=== PATIENT | male | born 1955 | race Caucasian/White ===

== ENCOUNTER 2017-04-12 16:04 | Inpatient (IN) | payer OTHER ==
[~2017-04-12] VITALS: Ht 177.8 cm; Wt 128.4 kg
[~2017-04-12 16:04] MED LIST: ASP81CT PO; CEFD300C3 PO; D ME PO; FURO40TA4 PO; IPRA3AMP IH; IPRA4AER IH; NAPR220T66 PO; PANT40TA3 PO; PRAV80TA2 PO; PRD10T PO
--- OUTSIDE RECORDS SUMMARY | 2017-04-12 16:10 | XMS REPORT | Continuity of Care Document ---
Author Author [facility] Organization [facility] Address Unknown Phone Unavailable Allergies Active Description Code Type Severity Reaction Onset Reported/Identified Relationship to Patient Clinical Status Yes No Known Drug Allergies [id number] Drug Allergy Unknown N/A 11/30/2012 Medications There is no data. Problems Date Dx Coded Attending Type Code Diagnosis Diagnosed By 01/25/2016 JULIAN ACUÑA DO, Ot 486 PNEUMONIA, ORGANISM NOS 01/25/2016 JULIAN ACUÑA DO Ot 486 PNEUMONIA, ORGANISM NOS 01/25/2016 JULIAN ACUÑA DO Ot 793.19 OTHER NONSPECIFIC ABNORMAL FINDING OF ARDEN 01/25/2016 JULIAN ACUÑA DO Ot 486 PNEUMONIA, ORGANISM NOS 01/25/2016 JULIAN ACUÑA DO Ot 793.19 OTHER NONSPECIFIC ABNORMAL FINDING OF ARDEN 01/30/2016 JULIAN ACUÑA DO Ot E66.9 OBESITY, UNSPECIFIED 01/30/2016 JULIAN ACUÑA DO Ot F17.210 NICOTINE DEPENDENCE, CIGARETTES, UNCOMPL 01/30/2016 JULIAN ACUÑA DO Ot I10 ESSENTIAL (PRIMARY) HYPERTENSION 01/30/2016 JULIAN ACUÑA DO Ot J44.1 CHRONIC OBSTRUCTIVE PULMONARY DISEASE W 01/30/2016 JULIAN ACUÑA DO Ot K21.9 GASTRO-ESOPHAGEAL REFLUX DISEASE WITHOUT 01/30/2016 JULIAN ACUÑA DO Ot R09.02 HYPOXEMIA 01/30/2016 JULIAN ACUÑA DO Ot Z68.41 BODY MASS INDEX (BMI) 40.0-44.9, ADULT 03/11/2016 AMINAH CHAMORRO APRN Ot J44.9 CHRONIC OBSTRUCTIVE PULMONARY DISEASE, U 03/11/2016 AMINAH CHAMORRO APRN Ot R05 COUGH 03/25/2016 AMINAH CHAMORRO APRN Ot J44.9 CHRONIC OBSTRUCTIVE PULMONARY DISEASE, U 03/25/2016 AMINAH CHAMORRO APRN Ot R05 COUGH Procedures There is no data. Results Test Result Range Complete blood count (CBC) with automated white blood cell (WBC) differential - 01/25/16 01:28 Blood leukocytes automated count (number/volume) 8.8 10*3/uL 4.3-11.0 Blood erythrocytes automated count (number/volume) 5.13 10*6/uL 4.35-5.85 Venous blood hemoglobin measurement (mass/volume) 16.2 g/dL 13.3-17.7 Blood hematocrit (volume fraction) 51 % 40-54 Automated erythrocyte mean corpuscular volume 98 [foz_us] 80-99 Automated erythrocyte mean corpuscular hemoglobin (mass per erythrocyte) 32 pg 25-34 Automated erythrocyte mean corpuscular hemoglobin concentration measurement ( mass/volume) 32 g/dL 32-36 Automated erythrocyte distribution width ratio 15.5 % 10.0-14.5 Automated blood platelet count (count/volume) 225 10*3/uL 130-400 Automated blood platelet mean volume measurement 10.2 [foz_us] 7.4-10.4 Automated blood neutrophils/100 leukocytes 67 % 42-75 Automated blood lymphocytes/100 leukocytes 23 % 12-44 Blood monocytes/100 leukocytes 7 % 0-12 Automated blood eosinophils/100 leukocytes 2 % 0-10 Automated blood basophils/100 leukocytes 1 % 0-10 Blood neutrophils automated count (number/volume) 5.9 10*3 1.8-7.8 Blood lymphocytes automated count (number/volume) 2.0 10*3 1.0-4.0 Blood monocytes automated count (number/volume) 0.6 10*3 0.0-1.0 Automated eosinophil count 0.2 10*3/uL 0.0-0.3 Automated blood basophil count (count/volume) 0.1 10*3/uL 0.0-0.1 Fibrin D-dimer FEU measurement in platelet poor plasma (mass/volume) - 01:28 Fibrin D-dimer FEU measurement in platelet poor plasma (mass/volume) < ug/mL 0.00-0.49 Comprehensive metabolic panel - 01/25/16 01:28 Serum or plasma sodium measurement (moles/volume) 138 mmol/L 135-145 Serum or plasma potassium measurement (moles/volume) 3.8 mmol/L 3.6-5.0 Serum or plasma chloride measurement (moles/volume) 95 mmol/L 98-107 Carbon dioxide 30 mmol/L 21-32 Serum or plasma anion gap determination (moles/volume) 13 mmol/L 5-14 Serum or plasma urea nitrogen measurement (mass/volume) 12 mg/dL 7-18 Serum or plasma creatinine measurement (mass/volume) 0.80 mg/dL 0.60-1.30 Serum or plasma urea nitrogen/creatinine mass ratio 15 NRG Serum or plasma creatinine measurement with calculation of estimated glomerular filtration rate > NRG Serum or plasma glucose measurement (mass/volume) 211 mg/dL 70-105 Serum or plasma calcium measurement (mass/volume) 8.9 mg/dL 8.5-10.1 Serum or plasma total bilirubin measurement (mass/volume) 0.5 mg/dL 0.1-1.0 Serum or plasma alkaline phosphatase measurement (enzymatic activity/volume) 86 U/L 40-136 Serum or plasma aspartate aminotransferase measurement (enzymatic activity/ volume) 14 U/L 5-34 Serum or plasma alanine aminotransferase measurement (enzymatic activity/volume ) 16 U/L 0-55 Serum or plasma protein measurement (mass/volume) 6.4 g/dL 6.4-8.2 Serum or plasma albumin measurement (mass/volume) 3.9 g/dL 3.2-4.5 Magnesium - 01/25/16 01:28 Magnesium 2.0 mg/dL 1.8-2.4 Serum or plasma troponin i.cardiac measurement (mass/volume) - 01/25/16 01:28 Serum or plasma troponin i.cardiac measurement (mass/volume) < ng/ mL <0.30 Serum or plasma lithium measurement (moles/volume) - 01/25/16 01:28 BNP level 38.6 pg/mL <100.0 Arterial blood gas measurement - 01/25/16 03:02 Blood pCO2 79 mm[Hg] 35-45 Blood pO2 62 mm[Hg] 79-93 Arterial blood bicarbonate measurement (moles/volume) 41 mmol/L 23-27 Arterial blood base excess by calculation 10.1 mmol/L - 2.5-2.5 Arterial blood oxygen saturation measurement 94 % 94-100 * Inhaled oxygen flow rate 3L NRG Arterial blood pH measurement with patient temperature correction 7.32 7.37-7.43 Arterial blood carbon dioxide, total measurement (moles/volume) 43.5 mmol/L 21.0-31.0 Body site L RAD NRG Assessment of wrist artery patency prior to arterial puncture YES- POS NRG Setting of ventilation mode NO NRG Measurement of body temperature 96.0 NRG Capillary blood glucose measurement by glucometer (mass/volume) - 01/25/16 06: 55 Capillary blood glucose measurement by glucometer (mass/volume) 161 mg/dL 70-110 Automated blood complete blood count (hemogram) panel - 01/26/16 08:29 Blood leukocytes automated count (number/volume) 12.8 10*3/uL 4.3-11.0 Blood erythrocytes automated count (number/volume) 5.14 10*6/uL 4.35-5.85 Venous blood hemoglobin measurement (mass/volume) 16.1 g/dL 13.3-17.7 Blood hematocrit (volume fraction) 52 % 40-54 Automated erythrocyte mean corpuscular volume 102 [foz_us] 80-99 Automated erythrocyte mean corpuscular hemoglobin (mass per erythrocyte) 31 pg 25-34 Automated erythrocyte mean corpuscular hemoglobin concentration measurement ( mass/volume) 31 g/dL 32-36 Automated erythrocyte distribution width ratio 16.1 % 10.0-14.5 Automated blood platelet count (count/volume) 267 10*3/uL 130-400 Automated blood platelet mean volume measurement 10.4 [foz_us] 7.4-10.4 Whole blood basic metabolic panel - 01/26/16 08:29 Serum or plasma sodium measurement (moles/volume) 140 mmol/L 135-145 Serum or plasma potassium measurement (moles/volume) 5.0 mmol/L 3.6-5.0 Serum or plasma chloride measurement (moles/volume) 98 mmol/L 98-107 Carbon dioxide 29 mmol/L 21-32 Serum or plasma anion gap determination (moles/volume) 13 mmol/L 5-14 Serum or plasma urea nitrogen measurement (mass/volume) 15 mg/dL 7-18 Serum or plasma creatinine measurement (mass/volume) 0.74 mg/dL 0.60-1.30 Serum or plasma urea nitrogen/creatinine mass ratio 20 NRG Serum or plasma creatinine measurement with calculation of estimated glomerular filtration rate > NRG Serum or plasma glucose measurement (mass/volume) 175 mg/dL 70-105 Serum or plasma calcium measurement (mass/volume) 8.6 mg/dL 8.5-10.1 Serum or plasma lithium measurement (moles/volume) - 01/26/16 08:29 BNP level 74.2 pg/mL <100.0 Automated blood complete blood count (hemogram) panel - 01/27/16 04:40 Blood leukocytes automated count (number/volume) 13.3 10*3/uL 4.3-11.0 Blood erythrocytes automated count (number/volume) 4.96 10*6/uL 4.35-5.85 Venous blood hemoglobin measurement (mass/volume) 15.5 g/dL 13.3-17.7 Blood hematocrit (volume fraction) 50 % 40-54 Automated erythrocyte mean corpuscular volume 101 [foz_us] 80-99 Automated erythrocyte mean corpuscular hemoglobin (mass per erythrocyte) 31 pg 25-34 Automated erythrocyte mean corpuscular hemoglobin concentration measurement ( mass/volume) 31 g/dL 32-36 Automated erythrocyte distribution width ratio 16.0 % 10.0-14.5 Automated blood platelet count (count/volume) 252 10*3/uL 130-400 Automated blood platelet mean volume measurement 10.7 [foz_us] 7.4-10.4 Whole blood basic metabolic panel - 01/27/16 04:40 Serum or plasma sodium measurement (moles/volume) 139 mmol/L 135-145 Serum or plasma potassium measurement (moles/volume) 4.6 mmol/L 3.6-5.0 Serum or plasma chloride measurement (moles/volume) 95 mmol/L 98-107 Carbon dioxide 31 mmol/L 21-32 Serum or plasma anion gap determination (moles/volume) 13 mmol/L 5-14 Serum or plasma urea nitrogen measurement (mass/volume) 21 mg/dL 7-18 Serum or plasma creatinine measurement (mass/volume) 0.73 mg/dL 0.60-1.30 Serum or plasma urea nitrogen/creatinine mass ratio 29 NRG Serum or plasma creatinine measurement with calculation of estimated glomerular filtration rate > NRG Serum or plasma glucose measurement (mass/volume) 151 mg/dL 70-105 Serum or plasma calcium measurement (mass/volume) 8.7 mg/dL 8.5-10.1 Complete blood count (CBC) with automated white blood cell (WBC) differential - 01/28/16 04:30 Blood leukocytes automated count (number/volume) 10.7 10*3/uL 4.3-11.0 Blood erythrocytes automated count (number/volume) 4.90 10*6/uL 4.35-5.85 Venous blood hemoglobin measurement (mass/volume) 15.2 g/dL 13.3-17.7 Blood hematocrit (volume fraction) 50 % 40-54 Automated erythrocyte mean corpuscular volume 101 [foz_us] 80-99 Automated erythrocyte mean corpuscular hemoglobin (mass per erythrocyte) 31 pg 25-34 Automated erythrocyte mean corpuscular hemoglobin concentration measurement ( mass/volume) 31 g/dL 32-36 Automated erythrocyte distribution width ratio 15.5 % 10.0-14.5 Automated blood platelet count (count/volume) 243 10*3/uL 130-400 Automated blood platelet mean volume measurement 10.6 [foz_us] 7.4-10.4 Automated blood neutrophils/100 leukocytes 90 % 42-75 Automated blood lymphocytes/100 leukocytes 6 % 12-44 Blood monocytes/100 leukocytes 4 % 0-12 Automated blood eosinophils/100 leukocytes 0 % 0-10 Automated blood basophils/100 leukocytes 0 % 0-10 Blood neutrophils automated count (number/volume) 9.6 10*3 1.8-7.8 Blood lymphocytes automated count (number/volume) 0.7 10*3 1.0-4.0 Blood monocytes automated count (number/volume) 0.4 10*3 0.0-1.0 Automated eosinophil count 0.0 10*3/uL 0.0-0.3 Automated blood basophil count (count/volume) 0.0 10*3/uL 0.0-0.1 Blood manual differential performed detection - 01/28/16 04:30 Blood monocytes/100 leukocytes 2 % NRG Manual blood segmented neutrophils/100 leukocytes 94 % NRG Blood band neutrophils/100 leukocytes 0 % NRG Manual blood lymphocytes/100 leukocytes 2 % NRG Manual eosinophils/100 leukocytes in nose 0 % NRG Manual blood basophils/100 leukocytes 0 % NRG Blood lymphocytes variant/100 leukocytes 2 % NRG Blood polychromasia detection by light microscopy SLIGHT NRG Blood anisocytosis detection by light microscopy SLIGHT NRG Blood macrocytes detection by light microscopy SLIGHT NRG Whole blood basic metabolic panel - 01/28/16 04:30 Serum or plasma sodium measurement (moles/volume) 142 mmol/L 135-145 Serum or plasma potassium measurement (moles/volume) 4.6 mmol/L 3.6-5.0 Serum or plasma chloride measurement (moles/volume) 95 mmol/L 98-107 Carbon dioxide 33 mmol/L 21-32 Serum or plasma anion gap determination (moles/volume) 14 mmol/L 5-14 Serum or plasma urea nitrogen measurement (mass/volume) 25 mg/dL 7-18 Serum or plasma creatinine measurement (mass/volume) 0.71 mg/dL 0.60-1.30 Serum or plasma urea nitrogen/creatinine mass ratio 35 NRG Serum or plasma creatinine measurement with calculation of estimated glomerular filtration rate > NRG Serum or plasma glucose measurement (mass/volume) 135 mg/dL 70-105 Serum or plasma calcium measurement (mass/volume) 8.4 mg/dL 8.5-10.1 Complete blood count (CBC) with automated white blood cell (WBC) differential - 01/29/16 06:07 Blood leukocytes automated count (number/volume) 7.9 10*3/uL 4.3-11.0 Blood erythrocytes automated count (number/volume) 4.96 10*6/uL 4.35-5.85 Venous blood hemoglobin measurement (mass/volume) 15.5 g/dL 13.3-17.7 Blood hematocrit (volume fraction) 49 % 40-54 Automated erythrocyte mean corpuscular volume 99 [foz_us] 80-99 Automated erythrocyte mean corpuscular hemoglobin (mass per erythrocyte) 31 pg 25-34 Automated erythrocyte mean corpuscular hemoglobin concentration measurement ( mass/volume) 32 g/dL 32-36 Automated erythrocyte distribution width ratio 15.2 % 10.0-14.5 Automated blood platelet count (count/volume) 224 10*3/uL 130-400 Automated blood platelet mean volume measurement 10.3 [foz_us] 7.4-10.4 Automated blood neutrophils/100 leukocytes 90 % 42-75 Automated blood lymphocytes/100 leukocytes 7 % 12-44 Blood monocytes/100 leukocytes 4 % 0-12 Automated blood eosinophils/100 leukocytes 0 % 0-10 Automated blood basophils/100 leukocytes 0 % 0-10 Blood neutrophils automated count (number/volume) 7.1 10*3 1.8-7.8 Blood lymphocytes automated count (number/volume) 0.5 10*3 1.0-4.0 Blood monocytes automated count (number/volume) 0.3 10*3 0.0-1.0 Automated eosinophil count 0.0 10*3/uL 0.0-0.3 Automated blood basophil count (count/volume) 0.0 10*3/uL 0.0-0.1 Whole blood basic metabolic panel - 01/29/16 06:07 Serum or plasma sodium measurement (moles/volume) 142 mmol/L 135-145 Serum or plasma potassium measurement (moles/volume) 4.6 mmol/L 3.6-5.0 Serum or plasma chloride measurement (moles/volume) 96 mmol/L 98-107 Carbon dioxide 35 mmol/L 21-32 Serum or plasma anion gap determination (moles/volume) 11 mmol/L 5-14 Serum or plasma urea nitrogen measurement (mass/volume) 24 mg/dL 7-18 Serum or plasma creatinine measurement (mass/volume) 0.71 mg/dL 0.60-1.30 Serum or plasma urea nitrogen/creatinine mass ratio 34 NRG Serum or plasma creatinine measurement with calculation of estimated glomerular filtration rate > NRG Serum or plasma glucose measurement (mass/volume) 139 mg/dL 70-105 Serum or plasma calcium measurement (mass/volume) 8.3 mg/dL 8.5-10.1 Arterial blood gas measurement - 01/29/16 08:18 Blood pCO2 74 mm[Hg] 35-45 Blood pO2 67 mm[Hg] 79-93 Arterial blood bicarbonate measurement (moles/volume) 42 mmol/L 23-27 Arterial blood base excess by calculation 12.1 mmol/L - 2.5-2.5 Arterial blood oxygen saturation measurement 94 % 94-100 * Inhaled oxygen flow rate [place] NRG Arterial blood pH measurement with patient temperature correction 7.37 7.37-7.43 Arterial blood carbon dioxide, total measurement (moles/volume) 43.9 mmol/L 21.0-31.0 Body site LRAD NRG Assessment of wrist artery patency prior to arterial puncture YES- POS NRG Setting of ventilation mode NO NRG Measurement of body temperature 97.5 NRG Complete blood count (CBC) with automated white blood cell (WBC) differential - 01/30/16 04:30 Blood leukocytes automated count (number/volume) 10.6 10*3/uL 4.3-11.0 Blood erythrocytes automated count (number/volume) 5.35 10*6/uL 4.35-5.85 Venous blood hemoglobin measurement (mass/volume) 16.6 g/dL 13.3-17.7 Blood hematocrit (volume fraction) 52 % 40-54 Automated erythrocyte mean corpuscular volume 98 [foz_us] 80-99 Automated erythrocyte mean corpuscular hemoglobin (mass per erythrocyte) 31 pg 25-34 Automated erythrocyte mean corpuscular hemoglobin concentration measurement ( mass/volume) 32 g/dL 32-36 Automated erythrocyte distribution width ratio 15.0 % 10.0-14.5 Automated blood platelet count (count/volume) 199 10*3/uL 130-400 Automated blood platelet mean volume measurement 10.1 [foz_us] 7.4-10.4 Automated blood neutrophils/100 leukocytes 69 % 42-75 Automated blood lymphocytes/100 leukocytes 19 % 12-44 Blood monocytes/100 leukocytes 11 % 0-12 Automated blood eosinophils/100 leukocytes 0 % 0-10 Automated blood basophils/100 leukocytes 0 % 0-10 Blood neutrophils automated count (number/volume) 7.3 10*3 1.8-7.8 Blood lymphocytes automated count (number/volume) 2.0 10*3 1.0-4.0 Blood monocytes automated count (number/volume) 1.2 10*3 0.0-1.0 Automated eosinophil count 0.0 10*3/uL 0.0-0.3 Automated blood basophil count (count/volume) 0.0 10*3/uL 0.0-0.1 Whole blood basic metabolic panel - 01/30/16 04:30 Serum or plasma sodium measurement (moles/volume) 141 mmol/L 135-145 Serum or plasma potassium measurement (moles/volume) 4.0 mmol/L 3.6-5.0 Serum or plasma chloride measurement (moles/volume) 91 mmol/L 98-107 Carbon dioxide 36 mmol/L 21-32 Serum or plasma anion gap determination (moles/volume) 14 mmol/L 5-14 Serum or plasma urea nitrogen measurement (mass/volume) 27 mg/dL 7-18 Serum or plasma creatinine measurement (mass/volume) 0.77 mg/dL 0.60-1.30 Serum or plasma urea nitrogen/creatinine mass ratio 35 NRG Serum or plasma creatinine measurement with calculation of estimated glomerular filtration rate > NRG Serum or plasma glucose measurement (mass/volume) 93 mg/dL 70-105 Serum or plasma calcium measurement (mass/volume) 8.6 mg/dL 8.5-10.1 Encounters ACCT No. Visit Date/Time Discharge Status Pt. Type Provider Facility Loc./Unit Complaint [id number] 03/10/2016 09:20:00 03/10/2016 23:59:59 CLS Outpatient AMINAH CHAMORRO APRN [facility] RT COPD,TOBACCO DEPENDENCE IN REMISSION [id number] 01/25/2016 03:45:00 01/30/2016 13:30:00 DIS Inpatient JULIAN ACUÑA DO [facility] 4TH AECOPD LOW O2 TOBACCO ABUSE [id number] 08/06/2013 09:26:00 08/06/2013 23:59:59 CLS Outpatient JULIAN ACUÑA DO [facility] RAD PNEUMONIA [id number] 07/30/2013 15:07:00 07/30/2013 23:59:59 CLS Outpatient JULIAN ACUÑA DO [facility] RAD PNUEMONIA [id number] 07/27/2013 16:13:00 07/27/2013 23:59:59 CLS Outpatient JULIAN ACUÑA DO [facility] RAD COUGH AND CONGESTION [id number] 01/19/2013 11:27:00 01/19/2013 23:59:59 CLS Outpatient [id number] 11/30/2012 17:42:00 12/06/2012 17:25:00 DIS Inpatient [id number] 11/29/2012 08:42:00 11/29/2012 23:59:59 CLS Outpatient [id number] 04/12/2017 16:06:00 ACT Emergency TEO HARE MD [facility] ER SOB
[2017-04-12] MEDS ORDERED: methylPREDNISolone 125 MG (Solu-MEDROL) VIAL IVP ONE (16:15)
[2017-04-12] MEDS ORDERED: RT-ALBUTEROL/IPRATROPIUM 3 ML (DUONEB) VIAL INH ONE (16:15)
[2017-04-12 16:35] LABS: ABG OXYGEN SATURATION 97 % (94-100); ABG PH 7.37 (7.37-7.43); ABG PO2 73 MMHG (79-93)
[2017-04-12 16:36] LABS: ABG HCO3 46 MMOL/L (23-27); ABG PCO2 81 MMHG (35-45); ALLENS TEST YES-POS
[2017-04-12 16:37] LABS: PATIENT TEMP 98.3
[2017-04-12] MEDS ORDERED: RT-ALBUTEROL SULF 2.5 MG/3 ML PRE-MIX VIAL INH ONE (16:38)
[2017-04-12 16:42] LABS: BASOPHILS # (AUTO) 0.1 10^3/uL (0.0-0.1); BASOPHILS % (AUTO) 1 % (0-10); EOSINOPHILS # (AUTO) 0.2 10^3/uL (0.0-0.3); EOSINOPHILS % (AUTO) 2 % (0-10); LYMPHOCYTES # (AUTO) 2.2 X 10^3 (1.0-4.0); LYMPHOCYTES % (AUTO) 24 % (12-44); MEAN CORPUSCULAR HEMOGLOBIN 31 PG (25-34); MEAN CORPUSCULAR HGB CONC 31 G/DL (32-36); MEAN CORPUSCULAR VOLUME 101 FL (80-99); MEAN PLATELET VOLUME 10.3 FL (7.4-10.4); MONOCYTES # (AUTO) 0.7 X 10^3 (0.0-1.0); MONOCYTES % (AUTO) 8 % (0-12); NEUTROPHILS # (AUTO) 6.2 X 10^3 (1.8-7.8); NEUTROPHILS % (AUTO) 66 % (42-75); PLATELET COUNT 246 10^3/uL (130-400); RED BLOOD COUNT 4.85 10^6/uL (4.35-5.85); RED CELL DISTRIBUTION WIDTH 15.2 % (10.0-14.5); WHITE BLOOD COUNT 9.3 10^3/uL (4.3-11.0)
--- NOTE | 2017-04-12 16:44 | Diagnostic Imaging Report ---
INDICATION: Shortness of air. Confusion. COMPARISON: 01/28/2016. FINDINGS: Single frontal view of the chest demonstrates normal heart size and pulmonary vascularity. The lungs are well aerated and clear. No large pleural effusion or pneumothorax is seen. The visualized osseous structures show no acute abnormalities. IMPRESSION: 1. No acute cardiopulmonary process. Dictated by: Dictated on workstation # [id number]
[2017-04-12] MEDS ORDERED: RT-ALBUTEROL SULF 2.5 MG/3 ML PRE-MIX VIAL INH SCH (16:45)
[2017-04-12 17:06] LABS: INR 0.9 (0.8-1.4); PROTHROMBIN TIME PATIENT 12.4 SEC (12.2-14.7)
[2017-04-12] MEDS ORDERED: MONT10TA24 PO (17:15)
--- NOTE | 2017-04-12 17:29 | ED Respiratory ---
General Chief Complaint: Respiratory Problems Stated Complaint: SOB Nursing Triage Note: ARRIVED VIA AMB FROM DR BURK OFFICE. COMPLAINS OF INCREASED SOA WITH CONFUSION OVER THE LAST COUPLE OF WEEKS. PT ARRIVED ON OXYGEN AT 2LNC ET STATES HE DOES NOT KNOW IF IT IS WORKING OR NOT. Source: patient Exam Limitations: no limitations History of Present Illness Time seen by provider: 16:00 Initial Comments Here with report of shortness of air over the last couple of weeks but much worse over the last few days. Presented to his doctor's office today because of this and was found to have an O2 saturation in the lower 70 percent range. He actually rode his bicycle to the doctor's office. States that he is getting short of breath with activity. Admits that he is confused and is having hallucinations. He states that he's had something similar previous when his COPD is acting up. Denies fever or chills. Denies nausea, vomiting or diarrhea. Denies other concerns. Timing/Duration: week, getting worse Severity: moderate, severe Prior Episodes/Possible Cause: occasional episodes Modifying Factors: Worse With Activity, Improves With Oxygen, Improves With Rest Associated Symptoms: No chest pain/soreness, No fever/chills, lightheadedness, No nasal congestion, shortness of breath, No sinus infection, No sore throat, wheezing Allergies and Home Medications Allergies Coded Allergies: No Known Drug Allergies (Unverified , 11/30/12) Home Medications D-Methorphan/PE/Acetaminophen 237 Ml Liquid, 30 ML PO BID PRN for CONGESTION, ( Reported) Furosemide 40 Mg Tablet, 40 MG PO DAILY, (Reported) Montelukast Sodium 10 Mg Tablet, 10 MG PO HS, (Reported) LAST FILLED 03/10/17 #30 Naproxen Sodium 220 Mg Tablet, 220 MG PO DAILY PRN for PAIN, (Reported) Pantoprazole Sodium 40 Mg Tablet.dr, 40 MG PO DAILY, (Reported) Constitutional: see HPI, No chills, No fever, other (confusion) EENTM: no symptoms reported Respiratory: see HPI, dyspnea on exertion, short of breath, wheezing Cardiovascular: no symptoms reported Gastrointestinal: no symptoms reported, No nausea, No vomiting Genitourinary: no symptoms reported Musculoskeletal: no symptoms reported Skin: no symptoms reported All Other Systems Reviewed Negative Unless Noted: Yes Past Rdujkcf-Ufnckz-Wyrmuz Hx Patient Social History Alcohol Use: Occasionally Uses Alcohol Beverage of Choice: Beer Recreational Drug Use: No (PAST DRUG ABUSE) Smoking Status: Current Everyday Smoker Type Used: Cigarettes Recent Foreign Travel: No Contact w/Someone Who Travel: No Recent Infectious Disease Expo: No Recent Hopitalizations: No Seasonal Allergies Seasonal Allergies: No Surgeries History of Surgeries: Yes (KNEE ARTHROSCOPY, ANKLE SURGERY, ULCER REPAIR) Surgeries: Gallbladder Respiratory History of Respiratory Disorde: Yes Respiratory Disorders: Pneumonia, COPD Cardiovascular History of Cardiac Disorders: Yes Cardiac Disorders: Hypertension Neurological History of Neurological Disord: No Reproductive System Hx Reproductive Disorders: No Gastrointestinal History of Gastrointestinal Di: No Gastrointestinal Disorders: Gastroesophageal Reflux, Gall Bladder Disease Musculoskeletal History of Musculoskeletal Dis: No Endocrine History of Endocrine Disorders: No Cancer History of Cancer: No Psychosocial History of Psychiatric Problem: No Integumentary History of Skin or Integumenta: No (HX CELLULITIS lower right leg) Reviewed Nursing Assessment Reviewed/Agree w Nursing PMH: Yes Family Medical History Significant Family History: No Pertinent Family Hx Family Medial History: Asthma 19 MOTHER Bone cancer 19 MOTHER Cardiovascular disease 19 FATHER Diabetes mellitus grandma Myocardial infarction 19 FATHER Physical Exam Vital Signs Vital Sign - Last 12Hours 04/12/17 16:12 Temp 98.3 Pulse 78 Resp 18 B/P (MAP) 125/88 (100) Pulse Ox 69 O2 Delivery Room Air O2 Flow Rate 5.00 Capillary Refill : Less Than 3 Seconds General Appearance: WD/WN, no apparent distress HEENT: PERRL/EOMI, pharynx normal Neck: full range of motion, supple Respiratory: decreased breath sounds, accessory muscle use, wheezing, expiration Cardiovascular: regular rate, rhythm, no murmur Gastrointestinal: non tender, soft Extremities: non-tender, normal inspection Neurologic/Psychiatric: no motor/sensory deficits, alert Skin: normal color, warm/dry Focused Exam Evaluation Lactate Level Laboratory Tests 04/12/17 16:20: Lactic Acid Level 1.34 Lactic Acid Level Laboratory Tests Test 04/12/17 16:20 Lactic Acid Level 1.34 MMOL/L (0.50-2.00) Progress/Results/Core Measures Suspected Sepsis Recent Fever Within 48 Hours: No Infection Criteria Present: None New/Unexplained Altered Menta: No Sepsis Screen: No Definite Risk Sepsis Diagnosis: SIRS Temperature:98.3 Pulse: 78 Respiratory Rate: 18 Laboratory Tests 04/12/17 16:20: White Blood Count 9.3 Blood Pressure 125 /88 Mean: 100 Laboratory Tests 04/12/17 16:20: Lactic Acid Level 1.34 Laboratory Tests 04/12/17 16:20: INR Comment 0.9, Platelet Count 246 04/12/17 17:10: Creatinine 0.68, Total Bilirubin 0.4 Results/Orders Lab Results Laboratory Tests Test 04/12/17 16:20 04/12/17 16:26 04/12/17 17:10 Range/Units White Blood Count 9.3 4.3-11.0 10^3/uL Red Blood Count 4.85 4.35-5.85 10^6/uL Hemoglobin 15.0 13.3-17.7 G/DL Hematocrit 49 40-54 % Mean Corpuscular Volume 101 H 80-99 FL Mean Corpuscular Hemoglobin 31 25-34 PG Mean Corpuscular Hemoglobin Concent 31 L 32-36 G/DL Red Cell Distribution Width 15.2 H 10.0-14.5 % Platelet Count 246 130-400 10^3/uL Mean Platelet Volume 10.3 7.4-10.4 FL Neutrophils (%) (Auto) 66 42-75 % Lymphocytes (%) (Auto) 24 12-44 % Monocytes (%) (Auto) 8 0-12 % Eosinophils (%) (Auto) 2 0-10 % Basophils (%) (Auto) 1 0-10 % Neutrophils # (Auto) 6.2 1.8-7.8 X 10^3 Lymphocytes # (Auto) 2.2 1.0-4.0 X 10^3 Monocytes # (Auto) 0.7 0.0-1.0 X 10^3 Eosinophils # (Auto) 0.2 0.0-0.3 10^3/uL Basophils # (Auto) 0.1 0.0-0.1 10^3/uL Prothrombin Time 12.4 12.2-14.7 SEC INR Comment 0.9 0.8-1.4 Activated Partial Thromboplast Time 30 24-35 SEC Lactic Acid Level 1.34 0.50-2.00 MMOL/L Blood Gas Puncture Site LT RAD Blood Gas Patient Temperature 98.3 Arterial Blood pH 7.37 7.37-7.43 Arterial Blood Partial Pressure CO2 81 *H 35-45 MMHG Arterial Blood Partial Pressure O2 73 L 79-93 MMHG Arterial Blood HCO3 46 *H 23-27 MMOL/L Arterial Blood Total CO2 48.0 H 21.0-31.0 MMOL/L Arterial Blood Oxygen Saturation 97 94-100 % Arterial Blood Base Excess 19.0 H -2.5-2.5 MMOL/L Kerwin Test YES-POS Blood Gas Ventilator Setting NO Blood Gas Inspired Oxygen 5.5L Sodium Level 144 135-145 MMOL/L Potassium Level 4.2 3.6-5.0 MMOL/L Chloride Level 91 L 98-107 MMOL/L Carbon Dioxide Level 43 H 21-32 MMOL/L Anion Gap 10 5-14 MMOL/L Blood Urea Nitrogen 13 7-18 MG/DL Creatinine 0.68 0.60-1.30 MG/DL Estimat Glomerular Filtration Rate > 60 BUN/Creatinine Ratio 19 Glucose Level 104 70-105 MG/DL Calcium Level 9.0 8.5-10.1 MG/DL Total Bilirubin 0.4 0.1-1.0 MG/DL Aspartate Amino Transf (AST/SGOT) 14 5-34 U/L Alanine Aminotransferase (ALT/SGPT) 11 0-55 U/L Alkaline Phosphatase 80 40-136 U/L Total Protein 6.3 L 6.4-8.2 GM/DL Albumin 3.8 3.2-4.5 GM/DL My Orders Orders - TEO HARE MD Lactic Acid Analyzer (04/12/17 16:26) Blood Culture (04/12/17 16:26) Sputum Culture (04/12/17 16:26) Protime With Inr (04/12/17 16:26) Partial Thromboplastin Time (04/12/17 16:26) O2 (04/12/17 16:26) Saline Lock/Iv-Start (04/12/17 16:26) Vital Signs Adult Sepsis Patie Q1H (04/12/17 16:26) Remove Rings In Anticipation O (04/12/17 16:26) Arterial Blood Gas (04/12/17 16:25) Albuterol Pre-Mix Nebs (Rt) (Proventil (04/12/17 16:38) Medications Given in ED Current Medications Medications Dose Ordered Sig/Rogers Route Start Time Stop Time Status Last Admin Dose Admin Albuterol/ Ipratropium 3 ml ONCE ONCE INH 04/12/17 16:15 04/12/17 16:16 DC 04/12/17 16:30 3 ML Methylprednisolone Sodium Succinate 125 mg ONCE ONCE IVP 04/12/17 16:15 04/12/17 16:16 DC 04/12/17 16:49 125 MG Vital Signs/I&O Vital Sign - Last 12Hours 04/12/17 04/12/17 04/12/17 04/12/17 16:12 16:12 16:30 16:45 Temp 98.3 Pulse 78 Resp 18 B/P (MAP) 125/88 (100) Pulse Ox 69 97 96 O2 Delivery Room Air Nasal Cannula Nasal Cannula Nasal Cannula O2 Flow Rate 5.00 5.50 5.50 Capillary Refill : Less Than 3 Seconds Blood Pressure Mean: 100 Progress Note : Progress Note Seen and evaluated. IV, labs and Solu-Medrol 125 mg IV. Duo neb treatment initiated. Albuterol treatments initiated including one-hour treatment. Patient's O2 saturation was 69 percent on arrival. This did improve after applying 5.5 L O2 via nasal cannula. ABG was done and results noted. Patient is hypercarbic has normal pH. Confusion is likely related to the hypoxic state. I did discuss the case with Dr. Riddle at 1650. He is recommending continuation of steroids and RT treatments and we will initiate BiPAP at night and when necessary while working towards transition of vent to mask due to the hypercarbic state. 1713: I did discuss the case with Dr. Acuña and he accepts patient for admission, inpatient status. Patient agrees to plan. States he is doing better after being on continuous one-hour treatment. O2 saturations now in the mid 90s. Diagnostic Imaging Diagonstic Imaging: Xray Plain Films/CT/US/NM/MRI: chest Comments NAME: ANAT VARGAS MED REC#: [id number] PT STATUS: REG ER : 1955 PHYSICIAN: YONY CALDERA APRN ADMIT DATE: 04/12/17/ER Signed Date of Exam: 04/12/17 CHEST 1 VIEW, AP/PA ONLY INDICATION: Shortness of air. Confusion. COMPARISON: 01/28/2016. FINDINGS: Single frontal view of the chest demonstrates normal heart size and pulmonary vascularity. The lungs are well aerated and clear. No large pleural effusion or pneumothorax is seen. The visualized osseous structures show no acute abnormalities. IMPRESSION: 1. No acute cardiopulmonary process. Dictated by: Dictated on workstation # [id number] Dict: 04/12/17 1642 Trans: 04/12/171654 Interpreted by: MILI BROWN MD Electronically signed by: MILI BROWN MD 04/12/171654 Departure Communication (Admissions) Time/Spoke to Admitting Phy: 17:13 Time/Spoke to Consulting Phy: 16:50 Impression Impression: Primary Impression: Hypoxemia Additional Impression: COPD with acute exacerbation Disposition: ADMITTED INPATIENT Condition: Stable Admissions Decision to Admit Reason: Admit from ER (General) Decision to Admit/Date: Apr 12, 2017 Time/Decision to Admit Time: 16:50 Departure-Patient Inst. Referrals: JULIAN ACUÑA DO (PCP/Family) Primary Care Physician TEO HARE MD Apr 12, 2017 17:29
--- OUTSIDE RECORDS SUMMARY | 2017-04-12 17:29 | XMS REPORT | Continuity of Care Document ---
Author Author [facility] Organization [facility] Address Unknown Phone Unavailable Allergies Active Description Code Type Severity Reaction Onset Reported/Identified Relationship to Patient Clinical Status Yes No Known Drug Allergies [id number] Drug Allergy Unknown N/A 11/30/2012 Medications There [...] 03/25/2016 AMINAH CHAMORRO APRN Ot R05 COUGH 04/12/2017 AMINAH CHAMORRO APRN Ot J44.9 CHRONIC OBSTRUCTIVE PULMONARY DISEASE, U 04/12/2017 AMINAH CHAMORRO APRN Ot R05 COUGH Procedures [...] plasma calcium measurement (mass/volume) 8.6 mg/dL 8.5-10.1 Complete blood count (CBC) with automated white blood cell (WBC) differential - 04/12/17 16:20 Blood leukocytes automated count (number/volume) 9.3 10*3/uL 4.3-11.0 Blood erythrocytes automated count (number/volume) 4.85 10*6/uL 4.35-5.85 Venous blood hemoglobin measurement (mass/volume) 15.0 g/dL 13.3-17.7 Blood hematocrit (volume fraction) 49 % 40-54 Automated erythrocyte mean corpuscular volume 101 [foz_us] 80-99 Automated erythrocyte mean corpuscular hemoglobin (mass per erythrocyte) 31 pg 25-34 Automated erythrocyte mean corpuscular hemoglobin concentration measurement ( mass/volume) 31 g/dL 32-36 Automated erythrocyte distribution width ratio 15.2 % 10.0-14.5 Automated blood platelet count (count/volume) 246 10*3/uL 130-400 Automated blood platelet mean volume measurement 10.3 [foz_us] 7.4-10.4 Automated blood neutrophils/100 leukocytes 66 % 42-75 Automated blood lymphocytes/100 leukocytes 24 % 12-44 Blood monocytes/100 leukocytes 8 % 0-12 Automated blood eosinophils/100 leukocytes 2 % 0-10 Automated blood basophils/100 leukocytes 1 % 0-10 Blood neutrophils automated count (number/volume) 6.2 10*3 1.8-7.8 Blood lymphocytes automated count (number/volume) 2.2 10*3 1.0-4.0 Blood monocytes automated count (number/volume) 0.7 10*3 0.0-1.0 Automated eosinophil count 0.2 10*3/uL 0.0-0.3 Automated blood basophil count (count/volume) 0.1 10*3/uL 0.0-0.1 Blood lactic acid measurement (moles/volume) - 04/12/17 16:20 Blood lactic acid measurement (moles/volume) 1.34 mmol/L 0.50-2.00 PT panel in platelet poor plasma by coagulation assay - 04/12/17 16:20 Prothrombin time (PT) in platelet poor plasma by coagulation assay 12.4 s 12.2-14.7 INR in platelet poor plasma or blood by coagulation assay 0.9 0.8-1.4 Activated partial thromboplastin time (aPTT) in platelet poor plasma bycoagulation assay - 04/12/17 16:20 Activated partial thromboplastin time (aPTT) in platelet poor plasma bycoagulation assay 30 s 24-35 Arterial blood gas measurement - 04/12/17 16:26 Blood pCO2 81 mm[Hg] 35-45 Blood pO2 73 mm[Hg] 79-93 Arterial blood bicarbonate measurement (moles/volume) 46 mmol/L 23-27 Arterial blood base excess by calculation 19.0 mmol/L - 2.5-2.5 Arterial blood oxygen saturation measurement 97 % 94-100 * Inhaled oxygen flow rate 5.5L NRG Arterial blood pH measurement with patient temperature correction 7.37 7.37-7.43 Arterial blood carbon dioxide, total measurement (moles/volume) 48.0 mmol/L 21.0-31.0 Body site LT RAD NRG Assessment of wrist artery patency prior to arterial puncture YES- POS NRG Setting of ventilation mode NO NRG Measurement of body temperature 98.3 NRG Encounters ACCT No. Visit Date/Time Discharge Status Pt. Type Provider Facility Loc./Unit Complaint [id number] 03/10/2016 09:20:00 03/10/2016 23:59:59 [facility] Outpatient AMINAH CHAMORRO APRN [facility] RT COPD,TOBACCO DEPENDENCE IN REMISSION [id number] 01/25/2016 03:45:00 01/30/2016 13:30:00 DIS Inpatient JULIAN ACUÑA DO [facility] 4TH AECOPD LOW O2 TOBACCO ABUSE [id number] 08/06/2013 09:26:00 08/06/2013 23:59:59 [facility] Outpatient JULIAN ACUÑA DO [facility] RAD PNEUMONIA [id number] 07/30/2013 15:07:00 07/30/2013 23:59:59 CLS Outpatient JULIAN ACUÑA DO [facility] RAD PNUEMONIA [id number] 07/27/2013 16:13:00 07/27/2013 23:59:59 CLS Outpatient JULIAN ACUÑA DO [facility] RAD COUGH AND CONGESTION [id number] 01/19/2013 11:27:00 01/19/2013 23:59:59 CLS Outpatient [id number] 11/30/2012 17:42:00 12/06/2012 17:25:00 DIS Inpatient [id number] 11/29/2012 08:42:00 11/29/2012 23:59:59 [facility] Outpatient [id number] 04/12/2017 17:22:00 ACT Inpatient JULIAN ACUÑA DO [facility] 4TH COPD ACUTE EXACERBATION,HYPOXIA
[2017-04-12 17:35] LABS: ALANINE AMINOTRANSFERASE 11 U/L (0-55); ALBUMIN 3.8 GM/DL (3.2-4.5); ANION GAP 10 MMOL/L (5-14); ASPARTATE AMINO TRANSFERASE 14 U/L (5-34); BILIRUBIN,TOTAL 0.4 MG/DL (0.1-1.0); BLOOD UREA NITROGEN 13 MG/DL (7-18); BUN/CREATININE RATIO 19; CARBON DIOXIDE 43 MMOL/L (21-32); CHLORIDE 91 MMOL/L (98-107); CREATININE SERUM 0.68 MG/DL (0.60-1.30); GFR ESTIMATED > 60; GLUCOSE 104 MG/DL (70-105); POTASSIUM 4.2 MMOL/L (3.6-5.0); SODIUM 144 MMOL/L (135-145); TOTAL PROTEIN 6.3 GM/DL (6.4-8.2)
[2017-04-12 18:06] VITALS: BP 146/82
[2017-04-12] MEDS ORDERED: ALBU18HF2 IH (18:15)
[2017-04-12] MEDS ORDERED: CETI10TA17 PO (18:15)
[2017-04-12] MEDS ORDERED: INFLUENZA TRIvalent 2017-2018 0.5 ML/45 MCG SYR IM ONE (19:30)
[2017-04-12] MEDS ORDERED: CATHETER FLUSH 10 ML SYR IV PRN (19:30)
[2017-04-12 20:00] VITALS: BP 168/79
[2017-04-12 20:14] VITALS: BP 146/82
[2017-04-12] MEDS ORDERED: RT-ALBUTEROL/IPRATROPIUM 3 ML (DUONEB) VIAL INH PRN (20:45)
[2017-04-12] MEDS: NS IV 1000 ML 1,000 ML IV SCH (21:07)
[2017-04-12] MEDS: RT-ALBUTEROL/IPRATROPIUM 3 ML (DUONEB) VIAL INH SCH (22:29)
[2017-04-12] MEDS: methylPREDNISolone 40 MG/ML (Solu-MEDROL) VIAL IV SCH (23:35)
[2017-04-13] VITALS (20 sets, daily range): BP systolic 97–164; BP diastolic 67–97
[2017-04-13] MEDS: RT-ALBUTEROL/IPRATROPIUM 3 ML (DUONEB) VIAL INH SCH ×6 (02:10→21:39)
[2017-04-13] MEDS: methylPREDNISolone 40 MG/ML (Solu-MEDROL) VIAL IV SCH ×4 (05:12→23:48)
[2017-04-13 06:00] LABS: ABG OXYGEN SATURATION 94 % (94-100); ABG PO2 65 MMHG (79-93)
[2017-04-13 06:01] LABS: ABG HCO3 44 MMOL/L (23-27); ABG PCO2 89 MMHG (35-45); ABG PH 7.31 (7.37-7.43)
[2017-04-13 06:02] LABS: ALLENS TEST YES-POS; PATIENT TEMP 96.8
[2017-04-13 06:16] LABS: BASOPHILS % (AUTO) 0 % (0-10); EOSINOPHILS % (AUTO) 0 % (0-10); LYMPHOCYTES # (AUTO) 0.7 X 10^3 (1.0-4.0); LYMPHOCYTES % (AUTO) 10 % (12-44); MEAN CORPUSCULAR HEMOGLOBIN 31 PG (25-34); MEAN CORPUSCULAR HGB CONC 30 G/DL (32-36); MEAN CORPUSCULAR VOLUME 101 FL (80-99); MEAN PLATELET VOLUME 10.2 FL (7.4-10.4); MONOCYTES # (AUTO) 0.1 X 10^3 (0.0-1.0); MONOCYTES % (AUTO) 2 % (0-12); NEUTROPHILS # (AUTO) 6.2 X 10^3 (1.8-7.8); NEUTROPHILS % (AUTO) 88 % (42-75); PLATELET COUNT 248 10^3/uL (130-400); RED BLOOD COUNT 4.75 10^6/uL (4.35-5.85); RED CELL DISTRIBUTION WIDTH 15.1 % (10.0-14.5); WHITE BLOOD COUNT 7.1 10^3/uL (4.3-11.0)
[2017-04-13 06:34] LABS: ALANINE AMINOTRANSFERASE 12 U/L (0-55); ALBUMIN 3.8 GM/DL (3.2-4.5); ANION GAP 9 MMOL/L (5-14); ASPARTATE AMINO TRANSFERASE 12 U/L (5-34); BILIRUBIN,TOTAL 0.4 MG/DL (0.1-1.0); BLOOD UREA NITROGEN 12 MG/DL (7-18); BUN/CREATININE RATIO 17; CALCIUM 8.7 MG/DL (8.5-10.1); CARBON DIOXIDE 40 MMOL/L (21-32); CHLORIDE 94 MMOL/L (98-107); GFR ESTIMATED > 60; GLUCOSE 156 MG/DL (70-105); POTASSIUM 4.3 MMOL/L (3.6-5.0); SODIUM 143 MMOL/L (135-145); TOTAL PROTEIN 6.6 GM/DL (6.4-8.2)
--- NOTE | 2017-04-13 07:39 | History & Physicial ---
History of Present Illness History of Present Illness Reason for visit/HPI patient came to the office yesterday by bicycle and on oxygen. Patient states she's been short of the air. Patient states he's been confused and hallucinating. Patient states that he doesn't care if he works and this is unusual for him. Patient pulse ox in the 70s. patient sent out by ambulance to the emergency room. patient this morning is confused. Patient thinks this is 2000. Patient does not know where he is at Patient being transferred to ICU Date of Admission Apr 12, 2017 at 17:22 Time Seen by Provider: 07:35 I consulted on this patient on 04/13/17 07:34 Attending Physician Guilherme Acuña DO Admitting Physician Guilherme Acuña DO Consult Allergies and Home Medications Allergies Coded Allergies: No Known Drug Allergies (Unverified , 11/30/12) Home Medications Albuterol Sulfate 18 Gm Hfa.aer.ad, 2 PUFF IH Q6H PRN for SHORTNESS OF BREATH, ( Reported) Cetirizine HCl 10 Mg Tablet, 10 MG PO 1200, (Reported) LAST FILLED 03/10/17 #30 Furosemide 40 Mg Tablet, 40 MG PO 1200, (Reported) Montelukast Sodium 10 Mg Tablet, 10 MG PO 2359, (Reported) LAST FILLED 03/10/17 #30 Naproxen Sodium 220 Mg Tablet, 220 MG PO DAILY PRN for PAIN, (Reported) Pantoprazole Sodium 40 Mg Tablet.dr, 40 MG PO 1200, (Reported) Past Yqinusp-Jvxmyf-Tfmiup Hx Patient Social History Alcohol Use: Occasionally Uses Number of Drinks Today: AA Alcohol Beverage of Choice: Beer Recreational Drug Use: No (PAST DRUG ABUSE) Smoking Status: Current Everyday Smoker Type Used: Cigarettes Physical Abuse Screen: No Sexual Abuse: No Recent Foreign Travel: No Contact w/other who traveled: No Recent Hopitalizations: No Recent Infectious Disease Expo: No Seasonal Allergies Seasonal Allergies: No Surgeries Yes (KNEE ARTHROSCOPY, ANKLE SURGERY, ULCER REPAIR) Gallbladder Respiratory Yes (NURSING HOME VENT LANDMARK) Currently Using CPAP: No Currently Using BIPAP: No Cardiovascular Yes Hypertension Neurological No Reproductive System Hx Reproductive Disorders: No Genitourinary No Gastrointestinal Yes Gastroesophageal Reflux, Ulcer, Gall Bladder Disease Musculoskeletal No Endocrine History of Endocrine Disorders: No HEENT History of HEENT Disorders: No Cancer No Psychosocial History of Psychiatric Problem: No Integumentary History of Skin or Integumenta: No (HX CELLULITIS lower right leg) Skin/Integumentary Disorders: Psoriasis Blood Transfusions History of Blood Disorders: No Reviewed Nursing Assessment Reviewed/Agree w Nursing PMH: Yes Family Medical History Significant Family History: No Pertinent Family Hx Family Hx: Asthma 19 MOTHER Bone cancer 19 MOTHER Cardiovascular disease 19 FATHER Diabetes mellitus grandma Myocardial infarction 19 FATHER Constitutional: other (patient confused unable to get history this morning) EENTM: no symptoms reported Respiratory: short of breath, other (portable oxygen not working) Cardiovascular: no symptoms reported Gastrointestinal: no symptoms reported Genitourinary: no symptoms reported Physical Exam Vital Signs Vital Sign - Last 12Hours 04/12/17 16:12 Temp 98.3 Pulse 78 Resp 18 B/P (MAP) 125/88 (100) Pulse Ox 69 O2 Delivery Room Air O2 Flow Rate 5.00 Capillary Refill : Less Than 3 Seconds General Appearance: No Apparent Distress Eyes: Bilateral Eye Normal Inspection HEENT: Normal ENT Inspection Neck: Full Range of Motion, Normal Inspection Respiratory: No Accessory Muscle Use, No Respiratory Distress Cardiovascular: Regular Rate, Rhythm, No Murmur Gastrointestinal: Non Tender, Soft Assessment/Plan Assessment and Plan hypoxemia. COPD with acute exacerbation. Confusion. Hallucination Problems: Clinical Quality Measures DVT/VTE Risk/Contraindication: Risk Factor Score Per Nursin RFS Level Per Nursing on Admit: 4+=Very High GUILHERME ACUÑA DO Apr 13, 2017 07:39
[2017-04-13] MEDS: ENOXAPARIN 40 MG/0.4 ML (LOVENOX) SYR SC SCH (08:50)
--- NOTE | 2017-04-13 09:21 | Pulmonary Consultation ---
History of Present Illness History of Present Illness Date of Consultation 04/13/17 09:14 Time Seen by Provider: 09:14 Date of Admission History of Present Illness 62yo with hx of COPD and persistent tobacco use presented to ED secondary to worsening SOB and hypoxia that was found at his doctors office. Pt was saturating in the 70's with oxygen on at PCP office. Pt has also had hallucinations. No fever, NS, chills. Pt was admitted to 4th floor however this AM his ABG was worse and he was more SOB. PT was transferred to ICU this AM. I am consulted for ICU management. Allergies and Home Medications Allergies Coded Allergies: No Known Drug Allergies (Unverified , 11/30/12) Home Medications Albuterol Sulfate 18 Gm Hfa.aer.ad, 2 PUFF IH Q6H PRN for SHORTNESS OF BREATH, ( Reported) Cetirizine HCl 10 Mg Tablet, 10 MG PO 1200, (Reported) LAST FILLED 03/10/17 #30 Furosemide 40 Mg Tablet, 40 MG PO 1200, (Reported) Montelukast Sodium 10 Mg Tablet, 10 MG PO 2359, (Reported) LAST FILLED 03/10/17 #30 Naproxen Sodium 220 Mg Tablet, 220 MG PO DAILY PRN for PAIN, (Reported) Pantoprazole Sodium 40 Mg Tablet.dr, 40 MG PO 1200, (Reported) Past Pedsipt-Growva-Egtrkx Hx Patient Social History Alcohol Use: Occasionally Uses Number of Drinks Today: AA Alcohol Beverage of Choice: Beer Recreational Drug Use: No (PAST DRUG ABUSE) Smoking Status: Current Everyday Smoker Type Used: Cigarettes Recent Foreign Travel: No Contact w/Someone Who Travel: No Recent Infectious Disease Expo: No Recent Hopitalizations: No Seasonal Allergies Seasonal Allergies: No Surgeries History of Surgeries: Yes (KNEE ARTHROSCOPY, ANKLE SURGERY, ULCER REPAIR) Surgeries: Gallbladder Respiratory History of Respiratory Disorde: Yes (GRAIN BLENDER VENT LANDMARK) Respiratory Disorders: Pneumonia, COPD Currently Using CPAP: No Currently Using BIPAP: No Cardiovascular History of Cardiac Disorders: Yes Cardiac Disorders: Hypertension Neurological History of Neurological Disord: No Reproductive System Hx Reproductive Disorders: No Genitourinary History of Genitourinary Disor: No Gastrointestinal History of Gastrointestinal Di: Yes Gastrointestinal Disorders: Gastroesophageal Reflux, Ulcer, Gall Bladder Disease Musculoskeletal History of Musculoskeletal Dis: No Endocrine History of Endocrine Disorders: No HEENT History of HEENT Disorders: No Cancer History of Cancer: No Psychosocial History of Psychiatric Problem: No Integumentary History of Skin or Integumenta: No (HX CELLULITIS lower right leg) Skin/Integumentary Disorders: Psoriasis Blood Transfusions History of Blood Disorders: No Reviewed Nursing Assessment Reviewed/Agree w Nursing PMH: Yes Family Medical History Significant Family History: No Pertinent Family Hx Family Medial History: Asthma 19 MOTHER Bone cancer 19 MOTHER Cardiovascular disease 19 FATHER Diabetes mellitus grandma Myocardial infarction 19 FATHER Review of Systems Time Seen by Provider: 09:30 Exam Exam Vital Signs Date Time Temp Pulse Resp B/P (MAP) Pulse Ox O2 Delivery O2 Flow Rate FiO2 04/13/17 07:40 98.0 81 12 163/93 (116) 91 NIV Bilevel 50.00 04/13/17 07:00 80 04/13/17 06:31 77 13 94 50.00 04/13/17 04:05 91 Nasal Cannula 4.50 04/13/17 04:00 99.1 90 21 164/72 (102) 97 NIV Bilevel 04/13/17 02:20 92 17 91 50.00 04/13/17 02:10 89 Nasal Cannula 4.00 04/13/17 01:00 96 04/13/17 00:23 84 23 89 50.00 04/13/17 00:00 98.6 92 21 158/72 (100) 92 Nasal Cannula 4.00 04/12/17 22:29 91 Nasal Cannula 4.00 04/12/17 21:00 Nasal Cannula 4.50 04/12/17 20:14 98 91 04/12/17 20:00 97.5 98 18 168/79 (108) 91 Nasal Cannula 4.50 04/12/17 19:13 96 04/12/17 18:24 94 Nasal Cannula 4.50 04/12/17 18:06 97.5 91 18 146/82 (103) 94 Nasal Cannula 4.50 04/12/17 18:05 98.3 88 18 96 Nasal Cannula 4.50 04/12/17 16:45 96 Nasal Cannula 5.50 04/12/17 16:30 97 Nasal Cannula 5.50 04/12/17 16:12 Nasal Cannula 5.00 04/12/17 16:12 98.3 78 18 125/88 (100) 69 Room Air I & O 04/13/17 07:00 Intake Total 890 ml Output Total 300 ml Balance 590 ml General Appearance: No Apparent Distress HEENT: Normal ENT Inspection Neck: Full Range of Motion, Normal Inspection Respiratory: No Accessory Muscle Use, No Respiratory Distress Cardiovascular: Regular Rate, Rhythm, No Murmur Capillary Refill: Less Than 3 Seconds Gastrointestinal: non tender, soft Extremity: Normal Capillary Refill, Normal Inspection Neurologic/Psychiatric: Alert Lymphatic: No Adenopathy Results Lab Laboratory Tests 04/12/17 16:20 04/12/17 17:10 04/13/17 05:45 04/13/17 05:50 Assessment/Plan Assessment/Plan COPDAE -noninvasive ventilation. -SVNs -Solumedrol Acute on chronic respiratory failure -Pt has improved with noninvasive ventilation and would benefit from home vent to mask -PT will improve Obesity 255 Clinical Quality Measures DVT/VTE Risk/Contraindication: Risk Factor Score Per Nursin RFS Level Per Nursing on Admit: 4+=Very High JAYLA MENDOZA DO Apr 13, 2017 09:21
[2017-04-13 10:48] LABS: ABG BASE EXCESS 16.2 MMOL/L (-2.5-2.5); ABG OXYGEN SATURATION 98 % (94-100); ABG PO2 97 MMHG (79-93); ABG TCO2 45.5 MMOL/L (21.0-31.0)
[2017-04-13 10:49] LABS: ALLENS TEST POSITIVE
[2017-04-13 10:50] LABS: ABG HCO3 43 MMOL/L (23-27); ABG PCO2 83 MMHG (35-45); ABG PH 7.33 (7.37-7.43); PATIENT TEMP 97.4
[2017-04-13] MEDS: NS IV 1000 ML 1,000 ML IV SCH (17:47)
[2017-04-14] VITALS (19 sets, daily range): BP systolic 112–169; BP diastolic 62–105
[2017-04-14] MEDS: RT-ALBUTEROL/IPRATROPIUM 3 ML (DUONEB) VIAL INH SCH ×6 (02:27→21:48)
[2017-04-14 04:52] LABS: ABG BASE EXCESS 17.9 MMOL/L (-2.5-2.5); ABG OXYGEN SATURATION 93 % (94-100); ABG PH 7.36 (7.37-7.43); ABG PO2 63 MMHG (79-93); ABG TCO2 46.8 MMOL/L (21.0-31.0)
[2017-04-14 04:54] LABS: ALLENS TEST YES-POS
[2017-04-14 04:55] LABS: ABG HCO3 44 MMOL/L (23-27); ABG PCO2 80 MMHG (35-45)
[2017-04-14 05:18] LABS: MEAN PLATELET VOLUME 10.2 FL (7.4-10.4); RED BLOOD COUNT 4.82 10^6/uL (4.35-5.85); RED CELL DISTRIBUTION WIDTH 15.2 % (10.0-14.5); WHITE BLOOD COUNT 11.2 10^3/uL (4.3-11.0)
[2017-04-14 05:45] LABS: ALANINE AMINOTRANSFERASE 9 U/L (0-55); ALBUMIN 3.6 GM/DL (3.2-4.5); ANION GAP 8 MMOL/L (5-14); ASPARTATE AMINO TRANSFERASE 12 U/L (5-34); BILIRUBIN,TOTAL 0.4 MG/DL (0.1-1.0); BLOOD UREA NITROGEN 16 MG/DL (7-18); BUN/CREATININE RATIO 24; CALCIUM 8.9 MG/DL (8.5-10.1); CARBON DIOXIDE 41 MMOL/L (21-32); CHLORIDE 93 MMOL/L (98-107); CREATININE SERUM 0.68 MG/DL (0.60-1.30); GFR ESTIMATED > 60; GLUCOSE 147 MG/DL (70-105); POTASSIUM 4.8 MMOL/L (3.6-5.0); SODIUM 142 MMOL/L (135-145); TOTAL PROTEIN 6.4 GM/DL (6.4-8.2)
[2017-04-14] MEDS: methylPREDNISolone 40 MG/ML (Solu-MEDROL) VIAL IV SCH ×3 (06:18→17:29)
--- NOTE | 2017-04-14 07:30 | Progress Note (SOAP) ---
Subjective Time Seen by Provider: 07:25 Subjective/Events-last exam patient feeling much better today. Patient on BiPAP. Patient not hallucinating. Patient knows where he is at. Patient states he'll stop smoking. COPD with acute exacerbation. Hypoxemia. Acute on chronic respiratory failure. Obesity. Tobaccoism Objective Exam Vital Signs Date Time Temp Pulse Resp B/P (MAP) Pulse Ox O2 Delivery O2 Flow Rate FiO2 04/14/17 06:00 79 13 115/65 (82) 92 NIV Bilevel 40.00 04/14/17 05:00 74 17 129/74 (92) 90 NIV Bilevel 40.00 04/14/17 04:00 76 16 118/68 (85) 92 NIV Bilevel 40.00 04/14/17 04:00 NIV Bilevel 40 04/14/17 03:00 77 11 112/62 (79) 92 NIV Bilevel 40.00 04/14/17 02:27 82 16 95 40.00 04/14/17 02:00 80 14 129/84 (99) 94 NIV Bilevel 40.00 04/14/17 01:00 79 11 128/86 (100) 97 NIV Bilevel 40.00 04/14/17 01:00 74 04/14/17 00:31 80 18 96 40.00 04/14/17 00:00 97.3 NIV Bilevel 40.00 04/14/17 00:00 NIV Bilevel 40 04/14/17 00:00 80 18 115/66 (82) 95 NIV Bilevel 40.00 04/13/17 23:00 101 24 122/71 (88) 89 NIV Bilevel 30.00 04/13/17 22:00 85 17 120/67 (84) 91 NIV Bilevel 30.00 04/13/17 21:39 90 19 95 30.00 04/13/17 21:00 81 16 102/73 (83) 94 NIV Bilevel 30.00 04/13/17 20:00 NIV Bilevel 30 04/13/17 20:00 97.6 04/13/17 20:00 89 17 97/74 (82) 96 NIV Bilevel 30.00 04/13/17 19:07 100 Vapotherm 40.00 90 04/13/17 19:00 89 20 110/75 (87) 97 NIV Bilevel 30.00 04/13/17 19:00 82 04/13/17 18:31 98 40.00 100 04/13/17 18:00 89 10 124/97 (106) 89 NIV Bilevel 40.00 04/13/17 17:00 84 11 136/83 (100) 88 NIV Bilevel 40.00 04/13/17 16:00 89 17 138/87 (104) 87 NIV Bilevel 40.00 04/13/17 15:26 93 NIV Bilevel 30.00 04/13/17 15:26 85 16 94 40.00 04/13/17 15:04 NIV Bilevel 40 04/13/17 15:02 97.0 75 12 141/86 (104) 97 NIV Bilevel 40.00 04/13/17 14:00 92 13 137/71 (93) 97 NIV Bilevel 40.00 04/13/17 13:21 93 NIV Bilevel 40.00 04/13/17 13:18 86 16 93 40.00 04/13/17 13:03 88 04/13/17 13:00 87 17 150/96 (114) 96 NIV Bilevel 50.00 04/13/17 12:00 81 12 132/78 (96) 97 NIV Bilevel 50.00 04/13/17 11:59 82 18 97 50.00 04/13/17 11:30 NIV Bilevel 50 04/13/17 11:26 97.2 04/13/17 11:00 81 18 136/84 (101) 96 NIV Bilevel 50.00 04/13/17 10:00 77 20 111/68 (82) 96 NIV Bilevel 50.00 04/13/17 09:30 80 17 97 50.00 04/13/17 09:00 82 20 137/82 (100) 95 NIV Bilevel 50.00 04/13/17 08:40 NIV Bilevel 50 04/13/17 08:00 82 12 129/75 (93) 95 NIV Bilevel 50.00 04/13/17 07:40 98.0 81 12 163/93 (116) 91 NIV Bilevel 50.00 I & O 04/14/17 07:00 Intake Total 1340 ml Output Total 1150 ml Balance 190 ml Capillary Refill : Less Than 3 Seconds General Appearance: No Apparent Distress, WD/WN HEENT: Normal ENT Inspection Neck: Full Range of Motion, Normal Inspection Respiratory: Chest Non Tender, No Accessory Muscle Use, No Respiratory Distress , Decreased Breath Sounds Cardiovascular: Regular Rate, Rhythm, No Murmur Gastrointestinal: non tender, soft Results Lab Laboratory Tests 04/14/17 04:40 Laboratory Tests 04/13/17 10:41: Blood Gas Puncture Site LEFT RADIAL, Blood Gas Patient Temperature 97.4, Arterial Blood pH 7.33*L, Arterial Blood Partial Pressure CO2 83*H, Arterial Blood Partial Pressure O2 97H, Arterial Blood HCO3 43*H, Arterial Blood Total CO2 45.5H, Arterial Blood Oxygen Saturation 98, Arterial Blood Base Excess 16.2H , Kerwin Test POSITIVE, Blood Gas Ventilator Setting NO, Blood Gas Inspired Oxygen 50% FI02 04/14/17 04:40: White Blood Count 11.2H, Red Blood Count 4.82, Hemoglobin 14.8, Hematocrit 49, Mean Corpuscular Volume 101H, Mean Corpuscular Hemoglobin 31, Mean Corpuscular Hemoglobin Concent 31L, Red Cell Distribution Width 15.2H, Platelet Count 253, Mean Platelet Volume 10.2, Sodium Level 142, Potassium Level 4.8, Chloride Level 93L, Carbon Dioxide Level 41H, Anion Gap 8, Blood Urea Nitrogen 16, Creatinine 0.68, Estimat Glomerular Filtration Rate > 60, BUN/Creatinine Ratio 24, Glucose Level 147H, Calcium Level 8.9, Total Bilirubin 0.4, Aspartate Amino Transf (AST/SGOT) 12, Alanine Aminotransferase (ALT/SGPT) 9, Alkaline Phosphatase 78, Total Protein 6.4, Albumin 3.6 04/14/17 04:45: Blood Gas Puncture Site L RAD, Blood Gas Patient Temperature 98.0, Arterial Blood pH 7.36L, Arterial Blood Partial Pressure CO2 80*H, Arterial Blood Partial Pressure O2 63L, Arterial Blood HCO3 44*H, Arterial Blood Total CO2 46.8H, Arterial Blood Oxygen Saturation 93L, Arterial Blood Base Excess 17.9H, Kerwin Test YES-POS, Blood Gas Ventilator Setting NO, Blood Gas Inspired Oxygen 40% BIPAP Microbiology 04/12/17 Blood Culture - Preliminary, Resulted No growth Assessment/Plan Assessment/Plan Assess & Plan/Chief Complaint COPD with acute exacerbation. Acute and chronic respiratory failure. Hypoxemia. Hypercapnia. Obesity. Tobaccoism. Patient doing better. Patient states he'll stop smoking Clinical Quality Measures DVT/VTE Risk/Contraindication: Risk Factor Score Per Nursin RFS Level Per Nursing on Admit: 4+=Very High JULIAN ACUÑA DO Apr 14, 2017 07:30
--- NOTE | 2017-04-14 07:44 | Diagnostic Imaging Report ---
INDICATION: Exacerbation of COPD. 0533 hours Portable upright AP view of the chest is obtained at 0533 hours. FINDINGS: Since 04/12/2017, heart size and pulmonary vascularity remain within normal limits. There is no pneumothorax or consolidation. IMPRESSION: No acute abnormality or adverse change is seen. Dictated by: Dictated on workstation # [id number]
[2017-04-14] MEDS: ENOXAPARIN 40 MG/0.4 ML (LOVENOX) SYR SC SCH (08:36)
[2017-04-14] MEDS: NS IV 1000 ML 1,000 ML IV SCH (13:04)
--- NOTE | 2017-04-14 15:22 | Pulmonary Progress Note ---
Subjective Time Seen by Provider: 15:21 Subjective/Events-last exam SOB has improved some. Exam Exam Vital Signs Date Time Temp Pulse Resp B/P (MAP) Pulse Ox O2 Delivery O2 Flow Rate FiO2 04/14/17 14:31 92 Vapotherm 40.00 40 04/14/17 14:00 81 9 119/70 (86) 89 Vapotherm 40.00 04/14/17 13:00 87 14 126/80 (95) 91 Vapotherm 40.00 04/14/17 13:00 87 04/14/17 12:30 Vapotherm 40.00 40 04/14/17 12:00 90 19 146/75 (98) 96 Vapotherm 40.00 04/14/17 11:17 94 Vapotherm 40.00 40 04/14/17 11:00 86 15 142/83 (102) 92 Vapotherm 40.00 04/14/17 11:00 99.0 04/14/17 10:53 142/94 (110) 93 Vapotherm 40.00 04/14/17 10:17 93 Vapotherm 40.00 40.00 04/14/17 10:17 93 Vapotherm 40.00 40 04/14/17 10:00 80 14 164/105 (124) 89 NIV Bilevel 40.00 04/14/17 09:00 83 11 134/91 (105) 92 NIV Bilevel 40.00 04/14/17 08:09 75 21 93 40.00 04/14/17 08:00 NIV Bilevel 40 04/14/17 08:00 75 10 136/72 (93) 92 NIV Bilevel 40.00 04/14/17 08:00 98.8 04/14/17 07:00 78 17 137/83 (101) 91 NIV Bilevel 40.00 04/14/17 07:00 78 04/14/17 06:00 79 13 115/65 (82) 92 NIV Bilevel 40.00 04/14/17 05:00 74 17 129/74 (92) 90 NIV Bilevel 40.00 04/14/17 04:00 76 16 118/68 (85) 92 NIV Bilevel 40.00 04/14/17 04:00 NIV Bilevel 40 04/14/17 03:00 77 11 112/62 (79) 92 NIV Bilevel 40.00 04/14/17 02:27 82 16 95 40.00 04/14/17 02:00 80 14 129/84 (99) 94 NIV Bilevel 40.00 04/14/17 01:00 79 11 128/86 (100) 97 NIV Bilevel 40.00 04/14/17 01:00 74 04/14/17 00:31 80 18 96 40.00 04/14/17 00:00 97.3 NIV Bilevel 40.00 04/14/17 00:00 NIV Bilevel 40 04/14/17 00:00 80 18 115/66 (82) 95 NIV Bilevel 40.00 04/13/17 23:00 101 24 122/71 (88) 89 NIV Bilevel 30.00 04/13/17 22:00 85 17 120/67 (84) 91 NIV Bilevel 30.00 04/13/17 21:39 90 19 95 30.00 04/13/17 21:00 81 16 102/73 (83) 94 NIV Bilevel 30.00 04/13/17 20:00 NIV Bilevel 30 04/13/17 20:00 97.6 04/13/17 20:00 89 17 97/74 (82) 96 NIV Bilevel 30.00 04/13/17 19:07 100 Vapotherm 40.00 90 04/13/17 19:00 89 20 110/75 (87) 97 NIV Bilevel 30.00 04/13/17 19:00 82 04/13/17 18:31 98 40.00 100 04/13/17 18:00 89 10 124/97 (106) 89 NIV Bilevel 40.00 04/13/17 17:00 84 11 136/83 (100) 88 NIV Bilevel 40.00 04/13/17 16:00 89 17 138/87 (104) 87 NIV Bilevel 40.00 04/13/17 15:26 93 NIV Bilevel 30.00 04/13/17 15:26 85 16 94 40.00 I & O 04/14/17 07:00 Intake Total 1340 ml Output Total 1150 ml Balance 190 ml General Appearance: WD/WN, Mild Distress HEENT: Normal ENT Inspection Neck: Full Range of Motion, Normal Inspection Respiratory: Chest Non Tender, No Accessory Muscle Use, No Respiratory Distress , Decreased Breath Sounds Cardiovascular: Regular Rate, Rhythm, No Murmur Capillary Refill: Less Than 3 Seconds Gastrointestinal: non tender, soft Extremity: Normal Capillary Refill, Normal Inspection Neurologic/Psychiatric: Alert Lymphatic: No Adenopathy Results Lab Laboratory Tests 04/12/17 16:20 04/12/17 17:10 04/13/17 05:45 04/13/17 05:50 04/14/17 04:40 Assessment/Plan Assessment/Plan COPDAE -noninvasive ventilation. -SVNs -Solumedrol Acute on chronic respiratory failure -Pt has improved with noninvasive ventilation and would benefit from home vent to mask -PT will improve Obesity Tobacco dependance -education 233 Clinical Quality Measures DVT/VTE Risk/Contraindication: Risk Factor Score Per Nursin RFS Level Per Nursing on Admit: 4+=Very High JAYLA MENDOZA DO Apr 14, 2017 15:21
[2017-04-15] VITALS (7 sets, daily range): BP systolic 118–164; BP diastolic 74–95
[2017-04-15] MEDS: methylPREDNISolone 40 MG/ML (Solu-MEDROL) VIAL IV SCH ×5 (00:12→23:50)
[2017-04-15] MEDS: RT-ALBUTEROL/IPRATROPIUM 3 ML (DUONEB) VIAL INH SCH ×6 (02:15→23:01)
[2017-04-15 05:25] LABS: MEAN PLATELET VOLUME 10.3 FL (7.4-10.4); RED BLOOD COUNT 4.84 10^6/uL (4.35-5.85); RED CELL DISTRIBUTION WIDTH 15.3 % (10.0-14.5); WHITE BLOOD COUNT 9.2 10^3/uL (4.3-11.0)
[2017-04-15 05:50] LABS: ANION GAP 10 MMOL/L (5-14); BLOOD UREA NITROGEN 20 MG/DL (7-18); BUN/CREATININE RATIO 30; CALCIUM 8.4 MG/DL (8.5-10.1); CARBON DIOXIDE 36 MMOL/L (21-32); CHLORIDE 95 MMOL/L (98-107); CREATININE SERUM 0.67 MG/DL (0.60-1.30); GFR ESTIMATED > 60; GLUCOSE 120 MG/DL (70-105); POTASSIUM 4.7 MMOL/L (3.6-5.0); SODIUM 141 MMOL/L (135-145)
--- NOTE | 2017-04-15 07:07 | Progress Note (SOAP) ---
Subjective Time Seen by Provider: 07:10 Subjective/Events-last exam he shouldn't feeling better today. Patient breathing better. Patient on BiPAP. BMPCO2 36 better. COPD with acute exacerbation. Acute on chronic respiratory failure. Tobacco dependence. Obesity Objective Exam Vital Signs Date Time Temp Pulse Resp B/P (MAP) Pulse Ox O2 Delivery O2 Flow Rate FiO2 04/15/17 06:35 77 12 93 40.00 04/15/17 04:26 68 19 97 40.00 04/15/17 02:15 68 18 92 40.00 04/15/17 00:05 78 19 95 40.00 04/15/17 00:00 97.0 83 18 142/75 (97) 98 NIV Bilevel 40.00 04/14/17 21:58 81 23 95 40.00 04/14/17 21:49 95 Vapotherm 40.00 40 04/14/17 20:00 97.7 82 18 169/87 (114) 95 Vapotherm 40.00 04/14/17 20:00 Vapotherm 40.00 40 04/14/17 19:29 96 Vapotherm 40.00 40 04/14/17 18:00 79 16 146/82 (103) 94 Vapotherm 40.00 04/14/17 17:00 Vapotherm 40.00 40 04/14/17 17:00 96 23 85 Vapotherm 40.00 04/14/17 17:00 98.1 04/14/17 16:00 85 16 92 Vapotherm 40.00 04/14/17 15:00 81 21 141/88 (105) 90 Vapotherm 40.00 04/14/17 14:31 92 Vapotherm 40.00 40 04/14/17 14:00 81 9 119/70 (86) 89 Vapotherm 40.00 04/14/17 13:00 87 14 126/80 (95) 91 Vapotherm 40.00 04/14/17 13:00 87 04/14/17 12:30 Vapotherm 40.00 40 04/14/17 12:00 90 19 146/75 (98) 96 Vapotherm 40.00 04/14/17 11:17 94 Vapotherm 40.00 40 04/14/17 11:00 86 15 142/83 (102) 92 Vapotherm 40.00 04/14/17 11:00 99.0 04/14/17 10:53 142/94 (110) 93 Vapotherm 40.00 04/14/17 10:17 93 Vapotherm 40.00 40.00 04/14/17 10:17 93 Vapotherm 40.00 40 04/14/17 10:00 80 14 164/105 (124) 89 NIV Bilevel 40.00 04/14/17 09:00 83 11 134/91 (105) 92 NIV Bilevel 40.00 04/14/17 08:09 75 21 93 40.00 04/14/17 08:00 NIV Bilevel 40 04/14/17 08:00 75 10 136/72 (93) 92 NIV Bilevel 40.00 04/14/17 08:00 98.8 I & O 04/15/17 07:00 Intake Total 2856 ml Output Total 2650 ml Balance 206 ml Capillary Refill : Less Than 3 Seconds General Appearance: No Apparent Distress, WD/WN HEENT: Normal ENT Inspection Neck: Full Range of Motion, Normal Inspection Respiratory: Chest Non Tender, No Accessory Muscle Use, No Respiratory Distress , Decreased Breath Sounds Cardiovascular: Regular Rate, Rhythm, No Murmur Gastrointestinal: non tender, soft Results Lab Laboratory Tests 04/15/17 04:25 Laboratory Tests 04/15/17 04:25: White Blood Count 9.2, Red Blood Count 4.84, Hemoglobin 14.7, Hematocrit 48, Mean Corpuscular Volume 99, Mean Corpuscular Hemoglobin 30, Mean Corpuscular Hemoglobin Concent 31L, Red Cell Distribution Width 15.3H, Platelet Count 255, Mean Platelet Volume 10.3, Sodium Level 141, Potassium Level 4.7, Chloride Level 95L, Carbon Dioxide Level 36H, Anion Gap 10, Blood Urea Nitrogen 20H, Creatinine 0.67, Estimat Glomerular Filtration Rate > 60, BUN/Creatinine Ratio 30, Glucose Level 120H, Calcium Level 8.4L Microbiology 04/12/17 Blood Culture - Preliminary, Resulted No growth Assessment/Plan Assessment/Plan Assess & Plan/Chief Complaint COPD with acute exacerbation. Acute and chronic respiratory failure. Hypoxemia. Hypercapnia. Obesity. Tobaccoism. Patient doing better. Patient states he'll stop smoking. . 04/15/17. COPD with acute exacerbation. Acute and chronic respiratory failure. Hypoxemia. Hypercapnia. Tobaccoism. Obesity. Patient feeling better Clinical Quality Measures DVT/VTE Risk/Contraindication: Risk Factor Score Per Nursin RFS Level Per Nursing on Admit: 4+=Very High JULIAN ACUÑA DO Apr 15, 2017 07:07
--- NOTE | 2017-04-15 07:25 | Pulmonary Progress Note ---
Subjective Time Seen by Provider: 07:24 Subjective/Events-last exam Pt is doing better. No complications noted. Exam Exam Vital Signs Date Time Temp Pulse Resp B/P (MAP) Pulse Ox O2 Delivery O2 Flow Rate FiO2 04/15/17 06:35 77 12 93 40.00 04/15/17 04:26 68 19 97 40.00 04/15/17 02:15 68 18 92 40.00 04/15/17 00:05 78 19 95 40.00 04/15/17 00:00 97.0 83 18 142/75 (97) 98 NIV Bilevel 40.00 04/14/17 21:58 81 23 95 40.00 04/14/17 21:49 95 Vapotherm 40.00 40 04/14/17 20:00 97.7 82 18 169/87 (114) 95 Vapotherm 40.00 04/14/17 20:00 Vapotherm 40.00 40 04/14/17 19:29 96 Vapotherm 40.00 40 04/14/17 18:00 79 16 146/82 (103) 94 Vapotherm 40.00 04/14/17 17:00 Vapotherm 40.00 40 04/14/17 17:00 96 23 85 Vapotherm 40.00 04/14/17 17:00 98.1 04/14/17 16:00 85 16 92 Vapotherm 40.00 04/14/17 15:00 81 21 141/88 (105) 90 Vapotherm 40.00 04/14/17 14:31 92 Vapotherm 40.00 40 04/14/17 14:00 81 9 119/70 (86) 89 Vapotherm 40.00 04/14/17 13:00 87 14 126/80 (95) 91 Vapotherm 40.00 04/14/17 13:00 87 04/14/17 12:30 Vapotherm 40.00 40 04/14/17 12:00 90 19 146/75 (98) 96 Vapotherm 40.00 04/14/17 11:17 94 Vapotherm 40.00 40 04/14/17 11:00 86 15 142/83 (102) 92 Vapotherm 40.00 04/14/17 11:00 99.0 04/14/17 10:53 142/94 (110) 93 Vapotherm 40.00 04/14/17 10:17 93 Vapotherm 40.00 40.00 04/14/17 10:17 93 Vapotherm 40.00 40 04/14/17 10:00 80 14 164/105 (124) 89 NIV Bilevel 40.00 04/14/17 09:00 83 11 134/91 (105) 92 NIV Bilevel 40.00 04/14/17 08:09 75 21 93 40.00 04/14/17 08:00 NIV Bilevel 40 04/14/17 08:00 75 10 136/72 (93) 92 NIV Bilevel 40.00 04/14/17 08:00 98.8 I & O 04/15/17 07:00 Intake Total 2856 ml Output Total 3450 ml Balance -594 ml General Appearance: No Apparent Distress, WD/WN HEENT: Normal ENT Inspection Neck: Full Range of Motion, Normal Inspection Respiratory: Chest Non Tender, No Accessory Muscle Use, No Respiratory Distress , Decreased Breath Sounds Cardiovascular: Regular Rate, Rhythm, No Murmur Capillary Refill: Less Than 3 Seconds Gastrointestinal: non tender, soft Extremity: Normal Capillary Refill, Normal Inspection Neurologic/Psychiatric: Alert Lymphatic: No Adenopathy Results Lab Laboratory Tests 04/14/17 04:40 04/15/17 04:25 Assessment/Plan Assessment/Plan COPDAE -noninvasive ventilation. -SVNs -Solumedrol Acute on chronic respiratory failure -Pt has improved with noninvasive ventilation and would benefit from home vent to mask -PT will improve Obesity Tobacco dependance -education 233 Clinical Quality Measures DVT/VTE Risk/Contraindication: Risk Factor Score Per Nursin RFS Level Per Nursing on Admit: 4+=Very High JAYLA MENDOZA DO Apr 15, 2017 07:25
[2017-04-15] MEDS: ENOXAPARIN 40 MG/0.4 ML (LOVENOX) SYR SC SCH (07:53)
[2017-04-15] MEDS: NS IV 1000 ML 1,000 ML IV SCH (07:57)
--- NOTE | 2017-04-15 10:31 | Diagnostic Imaging Report ---
EXAMINATION: Portable upright radiograph of the chest. INDICATION: COPD. FINDINGS: The heart is moderately enlarged. There is a small focal infiltrate in the left lung base developed from 04/14/17. The right lung appears clear. No effusion or pneumothorax. The mediastinum and aubrey appear unremarkable. IMPRESSION: Cardiomegaly. Development of small opacity in the left lung base may relate to atelectasis or mild pneumonia. Dictated by: Dictated on workstation # [id number]
[2017-04-16] VITALS: BP 132/74
[2017-04-16] MEDS: NS IV 1000 ML 1,000 ML IV SCH ×2 (03:32→23:21)
[2017-04-16] MEDS: RT-ALBUTEROL/IPRATROPIUM 3 ML (DUONEB) VIAL INH SCH ×6 (03:58→22:33)
[2017-04-16 04:00] VITALS: BP 147/82
[2017-04-16] MEDS: methylPREDNISolone 40 MG/ML (Solu-MEDROL) VIAL IV SCH ×4 (05:29→23:21)
[2017-04-16 06:21] LABS: MEAN PLATELET VOLUME 10.5 FL (7.4-10.4); RED BLOOD COUNT 4.97 10^6/uL (4.35-5.85); RED CELL DISTRIBUTION WIDTH 15.1 % (10.0-14.5); WHITE BLOOD COUNT 8.2 10^3/uL (4.3-11.0)
[2017-04-16 07:08] LABS: ANION GAP 11 MMOL/L (5-14); BLOOD UREA NITROGEN 16 MG/DL (7-18); BUN/CREATININE RATIO 25; CALCIUM 8.5 MG/DL (8.5-10.1); CARBON DIOXIDE 32 MMOL/L (21-32); CHLORIDE 97 MMOL/L (98-107); CREATININE SERUM 0.64 MG/DL (0.60-1.30); GFR ESTIMATED > 60; GLUCOSE 133 MG/DL (70-105); POTASSIUM 4.6 MMOL/L (3.6-5.0); SODIUM 140 MMOL/L (135-145)
[2017-04-16] MEDS: ENOXAPARIN 40 MG/0.4 ML (LOVENOX) SYR SC SCH (07:19)
[2017-04-16 08:00] VITALS: BP 145/75
--- NOTE | 2017-04-16 09:39 | Diagnostic Imaging Report ---
Clinical indication: Followup. COPD exacerbation. Exam: Portable chest x-ray upright view. Comparisons: Chest x-ray dated 04/15/2017. Findings: There is no significant change to the area of atelectasis versus infiltrate in the left lung base region. Otherwise, the lungs are clear. There is no pleural effusion or pneumothorax. Cardiac silhouette is now within normal limits compared to the prior study. Pulmonary vasculature is within normal limits. The remainder of this exam shows no significant interval change compared to the prior study of comparison.. Impression: 1: Stable mild left lung base atelectasis versus infiltrate. 2: Cardiac silhouette size is now within normal limits. Dictated by: Dictated on workstation # [id number]
--- NOTE | 2017-04-16 12:40 | Progress Note-Hospitalist ---
Progress Note Progress Notes/Assess & Plan Date Seen 04/16/17 Time Seen by Provider: 11:30 Diagonsis/Assessment & Plan Patient doing much better but still requires Vapotherm and I told him that is the limiting step before we can go home Realistically he knows will likely be Tuesday before he gets to go home He works at [employer] and he will notify them that he cannot work as planned over the holiday Denies any pain Constipated a bit but does not feel bloated so he is requesting a stool softener No fever, vital signs stable, pleasant, improved, up in chair using Vapotherm Regular rate and rhythm, clear to auscultation bilaterally but subtle wheezing in the end expiratory phase and no tachypnea but diminished breath sounds in the bases No edema Assessment: Acute exacerbation of COPD and a chronically oxygen dependent individual Mild constipation Plan: Colace Continue steroids and Vapotherm MEGHANN DIMAS DO Apr 16, 2017 12:40
[2017-04-16] MEDS ORDERED: NAPROXEN 250 MG (NAPROSYN) TABLET PO PRN (13:00)
[2017-04-16] MEDS: LORATADINE (CLARITIN) 10 MG TAB PO SCH (13:16)
[2017-04-16 16:00] VITALS: BP 167/98
[2017-04-16] MEDS: DOCUSATE SODIUM 100 MG (COLACE) CAP PO SCH (20:24)
[2017-04-16] MEDS: MONTELUKAST 10 MG (SINGULAIR) TAB PO SCH (23:21)
[2017-04-17] VITALS: BP 134/79
[2017-04-17] MEDS: RT-ALBUTEROL/IPRATROPIUM 3 ML (DUONEB) VIAL INH SCH ×6 (02:43→22:14)
[2017-04-17] MEDS: ENOXAPARIN 40 MG/0.4 ML (LOVENOX) SYR SC SCH (06:44)
[2017-04-17] MEDS: methylPREDNISolone 40 MG/ML (Solu-MEDROL) VIAL IV SCH ×2 (06:44→11:46)
[2017-04-17 08:00] VITALS: BP 132/86
[2017-04-17] MEDS: DOCUSATE SODIUM 100 MG (COLACE) CAP PO SCH ×2 (08:04→20:07)
[2017-04-17] MEDS: PANTOPRAZOLE 40 MG (PROTONIX) TAB PO SCH (11:46)
[2017-04-17] MEDS: LORATADINE (CLARITIN) 10 MG TAB PO SCH (11:46)
[2017-04-17] MEDS: FUROSEMIDE 40 MG (LASIX) TAB PO SCH (11:46)
--- NOTE | 2017-04-17 13:19 | Progress Note-Hospitalist ---
Subjective HPI/CC On Admission Date Seen by Provider: Apr 17, 2017 Time Seen by Provider: 12:30 Subjective/Events-last exam patient is feeling better. He actually was on his on oxygen at 4 L with O2 sats around 94 percent. He ambulated in the halls and they still stayed up on the 4 L. He is chronically on 2 L nasal cannula. currently is back on his Vapotherm. otherwise he is without complaint. Review of Systems Pulmonary: Dyspnea Objective Exam Vital Signs Vital Sign - Last 12Hours 04/12/17 04/13/17 16:12 08:40 Temp 98.3 Pulse 78 Resp 18 B/P (MAP) 125/88 (100) Pulse Ox 69 O2 Delivery Room Air O2 Flow Rate 5.00 FiO2 50 Capillary Refill : Less Than 3 SecondsLess Than 3 Seconds General Appearance: No Apparent Distress, WD/WN HEENT: Normal ENT Inspection Neck: Supple Respiratory: Decreased Breath Sounds, Wheezing Cardiovascular: Regular Rate, Rhythm, No Murmur Gastrointestinal: Soft Neurologic/Psychiatric: Alert, Oriented x3, No Motor/Sensory Deficits, Normal Mood/Affect Skin: Warm/Dry Assessment/Plan Assessment and Plan Assess & Plan/Chief Complaint Acute exacerbation of COPD and a chronically oxygen dependent individual Mild constipation-I cannot find documentation that this is resolved Plan: Colace Continue steroids and Vapotherm increase ambulation Hep-Lock IV fluids NNEKA GUPTA MD Apr 17, 2017 13:19
[2017-04-17] MEDS: predniSONE 20 MG TAB PO SCH (14:33)
[2017-04-17 15:55] VITALS: BP 162/80
[2017-04-17] MEDS: MONTELUKAST 10 MG (SINGULAIR) TAB PO SCH (22:23)
[2017-04-18 00:28] VITALS: BP 158/87
[2017-04-18] MEDS: RT-ALBUTEROL/IPRATROPIUM 3 ML (DUONEB) VIAL INH SCH ×5 (02:36→22:05)
[2017-04-18] MEDS: ENOXAPARIN 40 MG/0.4 ML (LOVENOX) SYR SC SCH (06:28)
[2017-04-18] MEDS: PANTOPRAZOLE 40 MG (PROTONIX) TAB PO SCH (08:22)
[2017-04-18] MEDS: DOCUSATE SODIUM 100 MG (COLACE) CAP PO SCH ×2 (08:22→20:24)
[2017-04-18 08:27] VITALS: BP 126/74
--- NOTE | 2017-04-18 11:36 | Progress Note-Hospitalist ---
Subjective HPI/CC On Admission Date Seen by Provider: Apr 18, 2017 Time Seen by Provider: 11:00 Subjective/Events-last exam patient is doing better. He says he has now quit smoking in his will not restart. We discussed the etiology of his COPD and house stopping smoking will improve his condition. He is down to 10 on the Vapotherm. He went on 4 L nasal cannula yesterday off and on. Review of Systems Pulmonary: Dyspnea Neurological: Weakness Objective Exam Vital Signs Vital Sign - Last 12Hours 04/12/17 04/13/17 16:12 08:40 Temp 98.3 Pulse 78 Resp 18 B/P (MAP) 125/88 (100) Pulse Ox 69 O2 Delivery Room Air O2 Flow Rate 5.00 FiO2 50 Capillary Refill : Less Than 3 SecondsLess Than 3 Seconds General Appearance: Obese HEENT: Normal ENT Inspection Neck: Supple Respiratory: Lungs Clear, Normal Breath Sounds, No Accessory Muscle Use, No Respiratory Distress, Decreased Breath Sounds Cardiovascular: Regular Rate, Rhythm, No Gallop, No Murmur Gastrointestinal: Soft, Distended Rectal: Deferred Extremity: Pedal Edema Neurologic/Psychiatric: Alert, Oriented x3, No Motor/Sensory Deficits, Normal Mood/Affect Assessment/Plan Assessment and Plan Assess & Plan/Chief Complaint Acute exacerbation of COPD and a chronically oxygen dependent individual Mild constipation-I cannot find documentation that this is resolved tobaccoism counseled and curtailed Plan: Colace Continue steroids and Vapotherm increase ambulation Hep-Lock IV fluids possible discharge in NNEKA Campbell MD Apr 18, 2017 11:36 am
[2017-04-18] MEDS: LORATADINE (CLARITIN) 10 MG TAB PO SCH (12:52)
[2017-04-18] MEDS: FUROSEMIDE 40 MG (LASIX) TAB PO SCH (12:52)
[2017-04-18 15:51] VITALS: BP 158/87
[2017-04-18 15:56] VITALS: BP 170/98
[2017-04-18] MEDS: predniSONE 20 MG TAB PO SCH (16:06)
[2017-04-18] MEDS: MONTELUKAST 10 MG (SINGULAIR) TAB PO SCH (20:26)
[2017-04-19 00:17] VITALS: BP 126/77
[2017-04-19] MEDS: RT-ALBUTEROL/IPRATROPIUM 3 ML (DUONEB) VIAL INH SCH ×2 (02:37→10:00)
[2017-04-19] MEDS: ENOXAPARIN 40 MG/0.4 ML (LOVENOX) SYR SC SCH (06:47)
--- NOTE | 2017-04-19 07:25 | Pulmonary Progress Note ---
Subjective Time Seen by Provider: 07:31 Subjective/Events-last exam Pt wants to go home. He is doing better. Exam Exam Vital Signs Date Time Temp Pulse Resp B/P (MAP) Pulse Ox O2 Delivery O2 Flow Rate FiO2 04/19/17 04:45 74 17 95 30.00 04/19/17 02:38 73 12 93 30.00 04/19/17 00:17 97.8 79 18 126/77 (93) 95 Nasal Cannula 30.00 5.00 04/18/17 23:34 81 16 97 30.00 04/18/17 22:06 94 Nasal Cannula 2.00 04/18/17 20:05 Nasal Cannula 2.00 04/18/17 15:56 97.3 88 20 170/98 (122) 96 Nasal Cannula 5.00 04/18/17 15:51 97 Nasal Cannula 2.00 04/18/17 15:51 92 97 04/18/17 11:45 96 Nasal Cannula 5.00 04/18/17 08:35 Vapotherm 10.00 30 04/18/17 08:27 97.1 63 20 126/74 (91) 93 Vapotherm 30.00 20.00 I & O 04/19/17 07:00 Intake Total 3190 ml Output Total 3625 ml Balance -435 ml General Appearance: No Apparent Distress, Obese HEENT: Normal ENT Inspection Neck: Supple Respiratory: Lungs Clear, Normal Breath Sounds, No Accessory Muscle Use, No Respiratory Distress, Decreased Breath Sounds Cardiovascular: Regular Rate, Rhythm, No Gallop, No Murmur Capillary Refill: Less Than 3 Seconds Gastrointestinal: non tender, soft Extremity: Pedal Edema Neurologic/Psychiatric: Alert, Oriented x3, No Motor/Sensory Deficits, Normal Mood/Affect Skin: Warm/Dry Lymphatic: No Adenopathy Assessment/Plan Assessment/Plan COPDAE -noninvasive ventilation. -SVNs -continue prednisone taper. Acute on chronic respiratory failure -Pt has improved with noninvasive ventilation and would benefit from home vent to mask -Currently pt has oxygen with [facility] however since they are located in [place] now he would like to switch to [facility]. Pt needs home vent to mask upon discharge. Obesity Tobacco dependance -education Pt is ok from pulmonary standpoint for discharge. 232 Clinical Quality Measures DVT/VTE Risk/Contraindication: Risk Factor Score Per Nursin RFS Level Per Nursing on Admit: 4+=Very High KELLY,JAYLA M DO Apr 19, 2017 07:25
--- NOTE | 2017-04-19 07:47 | Progress Note (SOAP) ---
Subjective Time Seen by Provider: 07:45 Subjective/Events-last exam cOPD with acute exacerbation. Patient feeling better today. Patient breathing better today. Plan to discharge today area Objective Exam Vital Signs Date Time Temp Pulse Resp B/P (MAP) Pulse Ox O2 Delivery O2 Flow Rate FiO2 04/19/17 04:45 74 17 95 30.00 04/19/17 02:38 73 12 93 30.00 04/19/17 00:17 97.8 79 18 126/77 (93) 95 Nasal Cannula 30.00 5.00 04/18/17 23:34 81 16 97 30.00 04/18/17 22:06 94 Nasal Cannula 2.00 04/18/17 20:05 Nasal Cannula 2.00 04/18/17 15:56 97.3 88 20 170/98 (122) 96 Nasal Cannula 5.00 04/18/17 15:51 97 Nasal Cannula 2.00 04/18/17 15:51 92 97 04/18/17 11:45 96 Nasal Cannula 5.00 04/18/17 08:35 Vapotherm 10.00 30 04/18/17 08:27 97.1 63 20 126/74 (91) 93 Vapotherm 30.00 20.00 I & O 04/19/17 07:00 Intake Total 3190 ml Output Total 3625 ml Balance -435 ml Capillary Refill : Less Than 3 SecondsLess Than 3 Seconds General Appearance: No Apparent Distress, WD/WN HEENT: Normal ENT Inspection Neck: Full Range of Motion, Normal Inspection Respiratory: Chest Non Tender, Lungs Clear, No Accessory Muscle Use, No Respiratory Distress, Decreased Breath Sounds Cardiovascular: Regular Rate, Rhythm Gastrointestinal: non tender Results Lab Microbiology 04/12/17 Blood Culture - Final, Complete No growth Assessment/Plan Assessment/Plan Assess & Plan/Chief Complaint COPD with acute exacerbation. Acute and chronic respiratory failure. Hypoxemia. Hypercapnia. Obesity. Tobaccoism. Patient doing better. Patient states he'll stop smoking. . 04/15/17. COPD with acute exacerbation. Acute and chronic respiratory failure. Hypoxemia. Hypercapnia. Tobaccoism. Obesity. Patient feeling better. . COPD with acute exacerbation area Acute and chronic respiratory failure. Hypoxemia. Hypercapnia. Tobaccoism Patient doing better and wants to home Plan to discharge today Clinical Quality Measures DVT/VTE Risk/Contraindication: Risk Factor Score Per Nursin RFS Level Per Nursing on Admit: 4+=Very High JULIAN ACUÑA DO Apr 19, 2017 07:47
[2017-04-19 08:00] VITALS: BP 127/82
[2017-04-19] MEDS: DOCUSATE SODIUM 100 MG (COLACE) CAP PO SCH (09:06)
[2017-04-19] MEDS ORDERED: PRED10TA22 PO (12:13)
[2017-04-19] MEDS: FUROSEMIDE 40 MG (LASIX) TAB PO SCH (12:21)
[2017-04-19] MEDS: PANTOPRAZOLE 40 MG (PROTONIX) TAB PO SCH (12:21)
[2017-04-19] MEDS: LORATADINE (CLARITIN) 10 MG TAB PO SCH (12:21)
--- NOTE | 2017-04-20 07:33 | Discharge Summary ---
Diagnosis/Chief Complaint Date of Admission Apr 12, 2017 at 17:22 Date of Discharge Apr 19, 2017 at 13:12 Discharge Date: Apr 19, 2017 Discharge Time: 07:30 Admission Diagnosis Admission Diagnosis hypoxemia. COPD with acute exacerbation. Confusion. Hallucination Discharge Diagnosis OPD with acute exacerbation. Acute and chronic respiratory failure with hypercapnia area Acute and chronic respiratory failure with hypoxemia. [place]. Disorientation. Hallucination. Nicotine dependence. Reason Hospital Visit patient came to the office yesterday by bicycle and on oxygen. Patient states she's been short of the air. Patient states he's been confused and hallucinating. Patient states that he doesn't care if he works and this is unusual for him. Patient pulse ox in the 70s. patient sent out by ambulance to the emergency room. patient this morning is confused. Patient thinks this is 2000. Patient does not know where he is at Patient being transferred to ICU Discharge Summary Consultations pulmonology Discharge Physical Examination Allergies: Coded Allergies: No Known Drug Allergies (Unverified , 11/30/12) Vitals & I&Os Vital Signs Date Time Temp Pulse Resp B/P (MAP) Pulse Ox O2 Delivery O2 Flow Rate FiO2 04/19/17 13:12 04/19/17 11:18 95 2.00 04/19/17 10:00 Nasal Cannula 04/19/17 08:00 96.9 65 20 04/18/17 08:35 30 Hospital Course patient in hospital did better. Patient thought process came back to normal. Patient states he'll not smoke anymore. Patient able to get off BiPAP and on nasal oxygen. Labs (last 24 hrs) Laboratory Tests 04/12/17 16:20: White Blood Count 9.3, Red Blood Count 4.85, Hemoglobin 15.0, Hematocrit 49, Mean Corpuscular Volume 101H, Mean Corpuscular Hemoglobin 31, Mean Corpuscular Hemoglobin Concent 31L, Red Cell Distribution Width 15.2H, Platelet Count 246, Mean Platelet Volume 10.3, Neutrophils (%) (Auto) 66, Lymphocytes (%) (Auto) 24 , Monocytes (%) (Auto) 8, Eosinophils (%) (Auto) 2, Basophils (%) (Auto) 1, Neutrophils # (Auto) 6.2, Lymphocytes # (Auto) 2.2, Monocytes # (Auto) 0.7, Eosinophils # (Auto) 0.2, Basophils # (Auto) 0.1, Prothrombin Time 12.4, INR Comment 0.9, Activated Partial Thromboplast Time 30, Lactic Acid Level 1.34 04/12/17 16:26: Blood Gas Puncture Site LT RAD, Blood Gas Patient Temperature 98.3, Arterial Blood pH 7.37, Arterial Blood Partial Pressure CO2 81*H, Arterial Blood Partial Pressure O2 73L, Arterial Blood HCO3 46*H, Arterial Blood Total CO2 48.0H, Arterial Blood Oxygen Saturation 97, Arterial Blood Base Excess 19.0H, Kerwin Test YES-POS, Blood Gas Ventilator Setting NO, Blood Gas Inspired Oxygen 5.5L 04/12/17 17:10: Sodium Level 144, Potassium Level 4.2, Chloride Level 91L, Carbon Dioxide Level 43H, Anion Gap 10, Blood Urea Nitrogen 13, Creatinine 0.68, Estimat Glomerular Filtration Rate > 60, BUN/Creatinine Ratio 19, Glucose Level 104, Calcium Level 9.0, Total Bilirubin 0.4, Aspartate Amino Transf (AST/SGOT) 14, Alanine Aminotransferase (ALT/SGPT) 11, Alkaline Phosphatase 80, Total Protein 6.3L, Albumin 3.8 04/13/17 05:35: Blood Gas Puncture Site RIGHT RADIAL, Blood Gas Patient Temperature 96.8, Arterial Blood pH 7.31*L, Arterial Blood Partial Pressure CO2 89*H, Arterial Blood Partial Pressure O2 65L, Arterial Blood HCO3 44*H, Arterial Blood Total CO2 47.0H, Arterial Blood Oxygen Saturation 94, Arterial Blood Base Excess 17.0H , Kerwin Test YES-POS, Blood Gas Ventilator Setting NO, Blood Gas Inspired Oxygen 5L 04/13/17 05:45: Sodium Level 143, Potassium Level 4.3, Chloride Level 94L, Carbon Dioxide Level 40H, Anion Gap 9, Blood Urea Nitrogen 12, Creatinine 0.70, Estimat Glomerular Filtration Rate > 60, BUN/Creatinine Ratio 17, Glucose Level 156H, Calcium Level 8.7, Total Bilirubin 0.4, Aspartate Amino Transf (AST/SGOT) 12, Alanine Aminotransferase (ALT/SGPT) 12, Alkaline Phosphatase 83, Total Protein 6.6, Albumin 3.8 04/13/17 05:50: White Blood Count 7.1, Red Blood Count 4.75, Hemoglobin 14.5, Hematocrit 48, Mean Corpuscular Volume 101H, Mean Corpuscular Hemoglobin 31, Mean Corpuscular Hemoglobin Concent 30L, Red Cell Distribution Width 15.1H, Platelet Count 248, Mean Platelet Volume 10.2, Neutrophils (%) (Auto) 88H, Lymphocytes (%) (Auto) 10L, Monocytes (%) (Auto) 2, Eosinophils (%) (Auto) 0, Basophils (%) (Auto) 0, Neutrophils # (Auto) 6.2, Lymphocytes # (Auto) 0.7L, Monocytes # (Auto) 0.1, Eosinophils # (Auto) 0.0, Basophils # (Auto) 0.0 04/13/17 10:41: Blood Gas Puncture Site LEFT RADIAL, Blood Gas Patient Temperature 97.4, Arterial Blood pH 7.33*L, Arterial Blood Partial Pressure CO2 83*H, Arterial Blood Partial Pressure O2 97H, Arterial Blood HCO3 43*H, Arterial Blood Total CO2 45.5H, Arterial Blood Oxygen Saturation 98, Arterial Blood Base Excess 16.2H , Kerwin Test POSITIVE, Blood Gas Ventilator Setting NO, Blood Gas Inspired Oxygen 50% FI02 04/14/17 04:40: Sodium Level 142, Potassium Level 4.8, Chloride Level 93L, Carbon Dioxide Level 41H, Anion Gap 8, Blood Urea Nitrogen 16, Creatinine 0.68, Estimat Glomerular Filtration Rate > 60, BUN/Creatinine Ratio 24, Glucose Level 147H, Calcium Level 8.9, Total Bilirubin 0.4, Aspartate Amino Transf (AST/SGOT) 12, Alanine Aminotransferase (ALT/SGPT) 9, Alkaline Phosphatase 78, Total Protein 6.4, Albumin 3.6, White Blood Count 11.2H, Red Blood Count 4.82, Hemoglobin 14.8, Hematocrit 49, Mean Corpuscular Volume 101H, Mean Corpuscular Hemoglobin 31, Mean Corpuscular Hemoglobin Concent 31L, Red Cell Distribution Width 15.2H, Platelet Count 253, Mean Platelet Volume 10.2 04/14/17 04:45: Blood Gas Puncture Site L RAD, Blood Gas Patient Temperature 98.0, Arterial Blood pH 7.36L, Arterial Blood Partial Pressure CO2 80*H, Arterial Blood Partial Pressure O2 63L, Arterial Blood HCO3 44*H, Arterial Blood Total CO2 46.8H, Arterial Blood Oxygen Saturation 93L, Arterial Blood Base Excess 17.9H, Kerwin Test YES-POS, Blood Gas Ventilator Setting NO, Blood Gas Inspired Oxygen 40% BIPAP 04/15/17 04:25: White Blood Count 9.2, Red Blood Count 4.84, Hemoglobin 14.7, Hematocrit 48, Mean Corpuscular Volume 99, Mean Corpuscular Hemoglobin 30, Mean Corpuscular Hemoglobin Concent 31L, Red Cell Distribution Width 15.3H, Platelet Count 255, Mean Platelet Volume 10.3, Sodium Level 141, Potassium Level 4.7, Chloride Level 95L, Carbon Dioxide Level 36H, Anion Gap 10, Blood Urea Nitrogen 20H, Creatinine 0.67, Estimat Glomerular Filtration Rate > 60, BUN/Creatinine Ratio 30, Glucose Level 120H, Calcium Level 8.4L 04/16/17 05:35: White Blood Count 8.2, Red Blood Count 4.97, Hemoglobin 15.2, Hematocrit 48, Mean Corpuscular Volume 97, Mean Corpuscular Hemoglobin 31, Mean Corpuscular Hemoglobin Concent 32, Red Cell Distribution Width 15.1H, Platelet Count 242, Mean Platelet Volume 10.5H, Sodium Level 140, Potassium Level 4.6, Chloride Level 97L, Carbon Dioxide Level 32, Anion Gap 11, Blood Urea Nitrogen 16, Creatinine 0.64, Estimat Glomerular Filtration Rate > 60, BUN/Creatinine Ratio 25, Glucose Level 133H, Calcium Level 8.5 Microbiology 04/12/17 Blood Culture - Final, Complete No growth Laboratory Tests 04/12/17 16:20 04/12/17 17:10 04/13/17 05:45 04/13/17 05:50 04/14/17 04:40 04/15/17 04:25 04/16/17 05:35 Pending Labs Microbiology Date/Time Source Procedure Growth Status 04/12/17 17:10 Peripheral Rt Ac Blood Culture - Final No growth Complete 04/12/17 16:20 Peripheral Peripheral, Nos Blood Culture - Final No growth Complete Laboratory Tests 04/12/17 16:20: White Blood Count 9.3, Red Blood Count 4.85, Hemoglobin 15.0, Hematocrit 49, Mean Corpuscular Volume 101, Mean Corpuscular Hemoglobin 31, Mean Corpuscular Hemoglobin Concent 31, Red Cell Distribution Width 15.2, Platelet Count 246, Mean Platelet Volume 10.3, Neutrophils (%) (Auto) 66, Lymphocytes (%) (Auto) 24 , Monocytes (%) (Auto) 8, Eosinophils (%) (Auto) 2, Basophils (%) (Auto) 1, Neutrophils # (Auto) 6.2, Lymphocytes # (Auto) 2.2, Monocytes # (Auto) 0.7, Eosinophils # (Auto) 0.2, Basophils # (Auto) 0.1, Prothrombin Time 12.4, INR Comment 0.9, Activated Partial Thromboplast Time 30, Lactic Acid Level 1.34 04/12/17 16:26: Blood Gas Puncture Site LT RAD, Blood Gas Patient Temperature 98.3, Arterial Blood pH 7.37, Arterial Blood Partial Pressure CO2 81, Arterial Blood Partial Pressure O2 73, Arterial Blood HCO3 46, Arterial Blood Total CO2 48.0, Arterial Blood Oxygen Saturation 97, Arterial Blood Base Excess 19.0, Kerwin Test YES-POS , Blood Gas Ventilator Setting NO, Blood Gas Inspired Oxygen 5.5L 04/12/17 17:10: Sodium Level 144, Potassium Level 4.2, Chloride Level 91, Carbon Dioxide Level 43, Anion Gap 10, Blood Urea Nitrogen 13, Creatinine 0.68, Estimat Glomerular Filtration Rate > 60, BUN/Creatinine Ratio 19, Glucose Level 104, Calcium Level 9.0, Total Bilirubin 0.4, Aspartate Amino Transf (AST/SGOT) 14, Alanine Aminotransferase (ALT/SGPT) 11, Alkaline Phosphatase 80, Total Protein 6.3, Albumin 3.8 04/13/17 05:35: Blood Gas Puncture Site RIGHT RADIAL, Blood Gas Patient Temperature 96.8, Arterial Blood pH 7.31, Arterial Blood Partial Pressure CO2 89, Arterial Blood Partial Pressure O2 65, Arterial Blood HCO3 44, Arterial Blood Total CO2 47.0, Arterial Blood Oxygen Saturation 94, Arterial Blood Base Excess 17.0, Kerwin Test YES-POS, Blood Gas Ventilator Setting NO, Blood Gas Inspired Oxygen 5L 04/13/17 05:45: Sodium Level 143, Potassium Level 4.3, Chloride Level 94, Carbon Dioxide Level 40, Anion Gap 9, Blood Urea Nitrogen 12, Creatinine 0.70, Estimat Glomerular Filtration Rate > 60, BUN/Creatinine Ratio 17, Glucose Level 156, Calcium Level 8.7, Total Bilirubin 0.4, Aspartate Amino Transf (AST/SGOT) 12, Alanine Aminotransferase (ALT/SGPT) 12, Alkaline Phosphatase 83, Total Protein 6.6, Albumin 3.8 04/13/17 05:50: White Blood Count 7.1, Red Blood Count 4.75, Hemoglobin 14.5, Hematocrit 48, Mean Corpuscular Volume 101, Mean Corpuscular Hemoglobin 31, Mean Corpuscular Hemoglobin Concent 30, Red Cell Distribution Width 15.1, Platelet Count 248, Mean Platelet Volume 10.2, Neutrophils (%) (Auto) 88, Lymphocytes (%) (Auto) 10 , Monocytes (%) (Auto) 2, Eosinophils (%) (Auto) 0, Basophils (%) (Auto) 0, Neutrophils # (Auto) 6.2, Lymphocytes # (Auto) 0.7, Monocytes # (Auto) 0.1, Eosinophils # (Auto) 0.0, Basophils # (Auto) 0.0 04/13/17 10:41: Blood Gas Puncture Site LEFT RADIAL, Blood Gas Patient Temperature 97.4, Arterial Blood pH 7.33, Arterial Blood Partial Pressure CO2 83, Arterial Blood Partial Pressure O2 97, Arterial Blood HCO3 43, Arterial Blood Total CO2 45.5, Arterial Blood Oxygen Saturation 98, Arterial Blood Base Excess 16.2, Kerwin Test POSITIVE, Blood Gas Ventilator Setting NO, Blood Gas Inspired Oxygen 50% FI02 04/14/17 04:40: Sodium Level 142, Potassium Level 4.8, Chloride Level 93, Carbon Dioxide Level 41, Anion Gap 8, Blood Urea Nitrogen 16, Creatinine 0.68, Estimat Glomerular Filtration Rate > 60, BUN/Creatinine Ratio 24, Glucose Level 147, Calcium Level 8.9, Total Bilirubin 0.4, Aspartate Amino Transf (AST/SGOT) 12, Alanine Aminotransferase (ALT/SGPT) 9, Alkaline Phosphatase 78, Total Protein 6.4, Albumin 3.6, White Blood Count 11.2, Red Blood Count 4.82, Hemoglobin 14.8, Hematocrit 49, Mean Corpuscular Volume 101, Mean Corpuscular Hemoglobin 31, Mean Corpuscular Hemoglobin Concent 31, Red Cell Distribution Width 15.2, Platelet Count 253, Mean Platelet Volume 10.2 04/14/17 04:45: Blood Gas Puncture Site L RAD, Blood Gas Patient Temperature 98.0, Arterial Blood pH 7.36, Arterial Blood Partial Pressure CO2 80, Arterial Blood Partial Pressure O2 63, Arterial Blood HCO3 44, Arterial Blood Total CO2 46.8, Arterial Blood Oxygen Saturation 93, Arterial Blood Base Excess 17.9, Kerwin Test YES-POS , Blood Gas Ventilator Setting NO, Blood Gas Inspired Oxygen 40% BIPAP 04/15/17 04:25: White Blood Count 9.2, Red Blood Count 4.84, Hemoglobin 14.7, Hematocrit 48, Mean Corpuscular Volume 99, Mean Corpuscular Hemoglobin 30, Mean Corpuscular Hemoglobin Concent 31, Red Cell Distribution Width 15.3, Platelet Count 255, Mean Platelet Volume 10.3, Sodium Level 141, Potassium Level 4.7, Chloride Level 95, Carbon Dioxide Level 36, Anion Gap 10, Blood Urea Nitrogen 20, Creatinine 0.67, Estimat Glomerular Filtration Rate > 60, BUN/Creatinine Ratio 30, Glucose Level 120, Calcium Level 8.4 04/16/17 05:35: White Blood Count 8.2, Red Blood Count 4.97, Hemoglobin 15.2, Hematocrit 48, Mean Corpuscular Volume 97, Mean Corpuscular Hemoglobin 31, Mean Corpuscular Hemoglobin Concent 32, Red Cell Distribution Width 15.1, Platelet Count 242, Mean Platelet Volume 10.5, Sodium Level 140, Potassium Level 4.6, Chloride Level 97, Carbon Dioxide Level 32, Anion Gap 11, Blood Urea Nitrogen 16, Creatinine 0.64, Estimat Glomerular Filtration Rate > 60, BUN/Creatinine Ratio 25, Glucose Level 133, Calcium Level 8.5 Radiology Reviewed : [facility] REC#: [id number] PT STATUS: ADM IN : 1955 PHYSICIAN: JULIAN ACUÑA DO ADMIT DATE: 04/12/17 Signed Date of Exam: 04/16/17 CHEST 1 VIEW, AP/PA ONLY Clinical indication: Followup. COPD exacerbation. Exam: Portable chest x-ray upright view. Comparisons: Chest x-ray dated 04/15/2017. Findings: There is no significant change to the area of atelectasis versus infiltrate in the left lung base region. Otherwise, the lungs are clear. There is no pleural effusion or pneumothorax. Cardiac silhouette is now within normal limits compared to the prior study. Pulmonary vasculature is within normal limits. The remainder of this exam shows no significant interval change compared to the prior study of comparison.. Impression: 1: Stable mild left lung base atelectasis versus infiltrate. 2: Cardiac silhouette size is now within normal limits. Dictated by: Dictated on workstation # [id number] Discharge Home Medications: Active Scripts Active Prednisone 10 Mg Tab.ds.pk 10 Mg PO DAILY Start at (40mg )daily,decrease by 1 tab(10MG)daily. Reported Ventolin Hfa (Albuterol Sulfate) 18 Gm Hfa.aer.ad 2 Puff IH Q6H PRN Cetirizine HCl 10 Mg Tablet 10 Mg PO 1200 LAST FILLED 03/10/17 #30 Montelukast Sodium 10 Mg Tablet 10 Mg PO 2359 LAST FILLED 03/10/17 #30 Pantoprazole Sodium 40 Mg Tablet.dr 40 Mg PO 1200 Furosemide 40 Mg Tablet 40 Mg PO 1200 Instructions to patient/family Please see electronic discharge instructions given to patient. Clinical Quality Measures DVT/VTE Risk/Contraindication: Risk Factor Score Per Nursin RFS Level Per Nursing on Admit: 4+=Very High JULIAN ACUÑA DO Apr 20, 2017 07:33
== END 2017-04-19 13:12 | disposition home or self-care (01) | DRG 189 ==
LOC: EDUNIT# 16:04 → ER 16:06 → 4TH 17:22 → ICU 04-13 08:30 → 4TH 04-15 13:05
PROVIDERS: ADMIT Family Medicine; ATTEND Family Medicine
DX: J96.21 Acute and chronic respiratory failure with hypoxia (principal); J96.22 Acute and chronic respiratory failure with hypercapnia; J44.1 Chronic obstructive pulmonary disease with (acute) exacerbation; R44.3 Hallucinations, unspecified; E66.9 Obesity, unspecified; Z68.41 Body mass index [BMI] 40.0-44.9, adult; F17.210 Nicotine dependence, cigarettes, uncomplicated; K21.9 Gastro-esophageal reflux disease without esophagitis; L40.9 Psoriasis, unspecified; R41.0 Disorientation, unspecified; K59.00 Constipation, unspecified; Z99.81 Dependence on supplemental oxygen
CPT/HCPCS: 36415; 71010; 80048; 80053; 82805; 83605; 85025; 85027; 85610; 85730; 87040; 94640; 94660; 94664; 94760; 94761; 96374; 99284

== ENCOUNTER → 2017-10-27 | Outpatient (CLI) | payer OTHER ==
[~2017-10-27] MED LIST changes: +ALBU18HF2 IH; +CETI10TA17 PO; -IPRA3AMP IH; +IPRA3AMP31 IH; +MONT10TA24 PO; +PRED10TA22 PO
--- NOTE | 2017-10-27 09:51 | Diagnostic Imaging Report ---
INDICATION: Infiltrate, followup. TECHNIQUE: Two view chest 9:15 AM CORRELATION STUDY: 10/18/2017 FINDINGS: Heart size is mildly enlarged. There is prominence of the central pulmonary arteries. Continued mild infiltrate-like density about the lingula left lung base, appearing slightly improved. Remaining lung thomas stable. Visualized osseous structures are unremarkable. IMPRESSION: 1. Perhaps slightly improved infiltrate of the lingula left upper lobe. Otherwise stable chest. Dictated by: Dictated on workstation # [id number]
== END ==
LOC: RAD 08:46
PROVIDERS: ATTEND Family Medicine
DX: R91.8 Other nonspecific abnormal finding of lung field (principal)
CPT/HCPCS: 71046

== ENCOUNTER → 2017-11-10 | Outpatient (CLI) | payer OTHER ==
--- NOTE | 2017-11-10 14:11 | Diagnostic Imaging Report ---
INDICATION: Pneumonia. COMPARISON: 10/27/2017. FINDINGS: A lingular opacity projecting over the heart and partially obscuring the left heart border in the frontal projection is an unchanged finding. Given its persistence, consider CT as further evaluation to exclude an endobronchial lesion and postobstructive disease. The right lung is clear. The heart size is upper limits but stable. Background COPD chronic. IMPRESSION: Little if any interval change in lingular consolidation when compared with most the recent study. Given its persistence, CT may be of benefit. Dictated by: Dictated on workstation # [id number]
== END ==
LOC: RAD 10:53
PROVIDERS: ATTEND Family Medicine
DX: J18.9 Pneumonia, unspecified organism (principal)
CPT/HCPCS: 71046

== ENCOUNTER → 2017-11-14 | Outpatient (CLI) | payer OTHER ==
[2017-11-14 13:45] LABS: BUN/CREATININE RATIO 23; GFR ESTIMATED > 60
== END ==
LOC: LAB 13:09
PROVIDERS: ATTEND Family Medicine
DX: N28.9 Disorder of kidney and ureter, unspecified (principal)
CPT/HCPCS: 36415; 82565; 84520

== ENCOUNTER → 2017-11-15 | Outpatient (CLI) | payer OTHER ==
[~2017-11-15] MED LIST changes: +IOHEXOL 350 MG/ML 100 ML (OMNIPAQUE 350) VIAL IV ONE; +NS 250 ML (IVPB) BAG IV ONE
--- NOTE | 2017-11-15 10:23 | Diagnostic Imaging Report ---
PROCEDURE: CT chest with contrast only. TECHNIQUE: Multiple contiguous axial images were obtained through the chest after administration of intravenous contrast. INDICATION: Pneumonia. FINDINGS: The heart size is normal. There is minimal atelectasis and/or pneumonitis in the lingula. There is also some linear scarring in the left lung base. There is no pleural or pericardial fluid. There is no pneumothorax. The thoracic aorta is normal in caliber. There is no pathologically enlarged adenopathy in the chest. The visualized intra-abdominal structures are unremarkable. There are mild degenerative changes in the spine. IMPRESSION: Minimal atelectasis and/or pneumonitis in the lingula as well as some linear scarring in the left lung base. No other acute abnormality in the chest. Dictated by: Dictated on workstation # [id number]
== END ==
LOC: RAD 08:55
PROVIDERS: ATTEND Family Medicine
DX: J18.1 Lobar pneumonia, unspecified organism (principal); N28.9 Disorder of kidney and ureter, unspecified
CPT/HCPCS: 36415; 71260; 82565; 84520

== ENCOUNTER 2018-03-06 11:44 | Inpatient (IN) | payer OTHER ==
[~2018-03-06] VITALS: Ht 177.8 cm; Wt 138.0 kg
[~2018-03-06 11:44] MED LIST changes: -IOHEXOL 350 MG/ML 100 ML (OMNIPAQUE 350) VIAL IV ONE; -NS 250 ML (IVPB) BAG IV ONE
--- OUTSIDE RECORDS SUMMARY | 2018-03-06 11:51 | XMS REPORT | Continuity of Care Document ---
Author Author [facility] Organization [facility] Address Unknown Phone Unavailable Allergies Active Description Code Type Severity Reaction Onset Reported/Identified Relationship to Patient Clinical Status Yes No Known Drug Allergies [id number] Drug Allergy Unknown N/A 11/30/2012 Medications There [...] OBSTRUCTIVE PULMONARY DISEASE, U 04/12/2017 AMINAH CHAMORRO [employer] Ot R05 COUGH 04/14/2017 GELLENDER DO, JULIAN Dia Ot E66.9 OBESITY, UNSPECIFIED 04/14/2017 GELLENDER DO, JULIAN Dia Ot F17.210 NICOTINE DEPENDENCE, CIGARETTES, UNCOMPL 04/14/2017 GELLENDER DO, JULIAN Dia Ot J44.1 CHRONIC OBSTRUCTIVE PULMONARY DISEASE W 04/14/2017 GELLENDER DO, JULIAN Dia Ot J96.21 ACUTE AND CHRONIC RESPIRATORY FAILURE [place] 04/14/2017 GELLENDER DO, JULIAN Dia Ot J96.22 ACUTE AND CHRONIC RESPIRATORY FAILURE [place] 04/14/2017 GELLENDER DO, JULIAN Dia Ot K21.9 GASTRO-ESOPHAGEAL REFLUX DISEASE WITHOUT 04/14/2017 GELLENDER DO, JULIAN Dia Ot L40.9 PSORIASIS, UNSPECIFIED 04/14/2017 GELLENDER DO, JULIAN Dia Ot R41.0 DISORIENTATION, UNSPECIFIED 04/14/2017 GELLENDER DO, JULIAN Dia Ot R44.3 HALLUCINATIONS, UNSPECIFIED 04/14/2017 GELLENDER DO, JULIAN Dia Ot Z68.41 BODY MASS INDEX (BMI) 40.0-44.9, ADULT 04/19/2017 GELLENDER DO, JULIAN Dia Ot E66.9 OBESITY, UNSPECIFIED 04/19/2017 GELLENDER DO, JULIAN Dia Ot F17.210 NICOTINE DEPENDENCE, CIGARETTES, UNCOMPL 04/19/2017 GELLENDER DO, JULIAN Dia Ot J44.1 CHRONIC OBSTRUCTIVE PULMONARY DISEASE W 04/19/2017 GELLENDER DO, JULIAN Dia Ot J96.21 ACUTE AND CHRONIC RESPIRATORY FAILURE [place] 04/19/2017 GELLENDER DO, JULIAN Dia Ot J96.22 ACUTE AND CHRONIC RESPIRATORY FAILURE [place] 04/19/2017 GELLENDER DO, JULIAN Dia Ot K21.9 GASTRO-ESOPHAGEAL REFLUX DISEASE WITHOUT 04/19/2017 GELLENDER DO, JULIAN Dia Ot K59.00 CONSTIPATION, UNSPECIFIED 04/19/2017 GELLENDER DO, JULIAN Dia Ot L40.9 PSORIASIS, UNSPECIFIED 04/19/2017 GELLENDER DO, JULIAN Dia Ot R41.0 DISORIENTATION, UNSPECIFIED 04/19/2017 GELLENDER DOJULIAN Ot R44.3 HALLUCINATIONS, UNSPECIFIED 04/19/2017 GELLENDER DO, JULIAN Dia Ot Z68.41 BODY MASS INDEX (BMI) 40.0-44.9, ADULT 04/19/2017 ARIANNE DO, JULIAN Dia Ot Z99.81 DEPENDENCE ON SUPPLEMENTAL OXYGEN 10/19/2017 GELLENDER DO, JULIAN Dia Ot J44.9 CHRONIC OBSTRUCTIVE PULMONARY DISEASE, U 10/19/2017 GELLENDER DO, JULIAN Dia Ot R91.8 OTHER NONSPECIFIC ABNORMAL FINDING OF [place] 10/24/2017 GELLENDER DO, JULIAN Dia Ot J44.9 CHRONIC OBSTRUCTIVE PULMONARY DISEASE, U 10/24/2017 GELLENDER DO, JULIAN Dia Ot R91.8 OTHER NONSPECIFIC ABNORMAL FINDING OF [place] 10/28/2017 GELLENDER DO, JULIAN iDa Ot R91.8 OTHER NONSPECIFIC ABNORMAL FINDING OF [place] 11/04/2017 GELLENDER DO, JULIAN Dia Ot J44.9 CHRONIC OBSTRUCTIVE PULMONARY DISEASE, U 11/04/2017 GELLENDER DO, JULIAN Dia Ot R91.8 OTHER NONSPECIFIC ABNORMAL FINDING OF [place] 11/04/2017 GELLENDER DO, JULIAN Dia Ot R91.8 OTHER NONSPECIFIC ABNORMAL FINDING OF [place] 11/04/2017 GELLENDER DO, JULIAN Dia Ot J44.9 CHRONIC OBSTRUCTIVE PULMONARY DISEASE, U 11/04/2017 GELLENDER DO, JULIAN Dia Ot R91.8 OTHER NONSPECIFIC ABNORMAL FINDING OF [place] 11/04/2017 GELLENDER DO, JULIAN Dia Ot R91.8 OTHER NONSPECIFIC ABNORMAL FINDING OF [place] 11/04/2017 GELLENDER DO, JULIAN Dia Ot J44.9 CHRONIC OBSTRUCTIVE PULMONARY DISEASE, U 11/04/2017 GELLENDER DO, JULIAN Dia Ot R91.8 OTHER NONSPECIFIC ABNORMAL FINDING OF [place] 11/11/2017 GELLENDER DO, JULIAN Dia Ot J18.9 PNEUMONIA, UNSPECIFIED ORGANISM 11/15/2017 GELLENDER DO, JULIAN Dia Ot N28.9 DISORDER OF KIDNEY AND URETER, UNSPECIFI 11/16/2017 GELLENDER DO, JULIAN Dia Ot J18.1 LOBAR PNEUMONIA, UNSPECIFIED ORGANISM 11/16/2017 GELLENDER DO, JULIAN Dia Ot N28.9 DISORDER OF KIDNEY AND URETER, UNSPECIFI 02/06/2018 GELLENDER DO, JULIAN Dia Ot J44.9 CHRONIC OBSTRUCTIVE PULMONARY DISEASE, U 02/06/2018 GELLENDER DO, JULIAN Dia Ot R91.8 OTHER NONSPECIFIC ABNORMAL FINDING OF [place] 02/06/2018 GELLENDER DO, JULIAN Dia Ot R91.8 OTHER NONSPECIFIC ABNORMAL FINDING OF [place] 02/06/2018 JULIAN ACUÑA DO Ot J18.1 LOBAR PNEUMONIA, UNSPECIFIED ORGANISM 02/06/2018 JULIAN CAUÑA DO Ot N28.9 DISORDER OF KIDNEY AND URETER, UNSPECIFI Procedures There is no data. Results Test [...] poor plasma bycoagulation assay 30 s 24-35 Bacterial blood culture - 04/12/17 16:20 Bacterial blood culture NG NRG Arterial blood gas measurement - 04/12/17 16:26 [...] NRG Measurement of body temperature 98.3 NRG Comprehensive metabolic panel - 04/12/17 17:10 Serum or plasma sodium measurement (moles/volume) 144 mmol/L 135-145 Serum or plasma potassium measurement (moles/volume) 4.2 mmol/L 3.6-5.0 Serum or plasma chloride measurement (moles/volume) 91 mmol/L 98-107 Carbon dioxide 43 mmol/L 21-32 Serum or plasma anion gap determination (moles/volume) 10 mmol/L 5-14 Serum or plasma urea nitrogen measurement (mass/volume) 13 mg/dL 7-18 Serum or plasma creatinine measurement (mass/volume) 0.68 mg/dL 0.60-1.30 Serum or plasma urea nitrogen/creatinine mass ratio 19 NRG Serum or plasma creatinine measurement with calculation of estimated glomerular filtration rate > NRG Serum or plasma glucose measurement (mass/volume) 104 mg/dL 70-105 Serum or plasma calcium measurement (mass/volume) 9.0 mg/dL 8.5-10.1 Serum or plasma total bilirubin measurement (mass/volume) 0.4 mg/dL 0.1-1.0 Serum or plasma alkaline phosphatase measurement (enzymatic activity/volume) 80 U/L 40-136 Serum or plasma aspartate aminotransferase measurement (enzymatic activity/ volume) 14 U/L 5-34 Serum or plasma alanine aminotransferase measurement (enzymatic activity/volume ) 11 U/L 0-55 Serum or plasma protein measurement (mass/volume) 6.3 g/dL 6.4-8.2 Serum or plasma albumin measurement (mass/volume) 3.8 g/dL 3.2-4.5 Bacterial blood culture - 04/12/17 17:10 Bacterial blood culture NG NRG Arterial blood gas measurement - 04/13/17 05:35 Blood pCO2 89 mm[Hg] 35-45 Blood pO2 65 mm[Hg] 79-93 Arterial blood bicarbonate measurement (moles/volume) 44 mmol/L 23-27 Arterial blood base excess by calculation 17.0 mmol/L - 2.5-2.5 Arterial blood oxygen saturation measurement 94 % 94-100 * Inhaled oxygen flow rate 5L NRG Arterial blood pH measurement with patient temperature correction 7.31 7.37-7.43 Arterial blood carbon dioxide, total measurement (moles/volume) 47.0 mmol/L 21.0-31.0 Body site RIGHT RADIAL NRG Assessment of wrist artery patency prior to arterial puncture YES- POS NRG Setting of ventilation mode NO NRG Measurement of body temperature 96.8 NRG Comprehensive metabolic panel - 04/13/17 05:45 Serum or plasma sodium measurement (moles/volume) 143 mmol/L 135-145 Serum or plasma potassium measurement (moles/volume) 4.3 mmol/L 3.6-5.0 Serum or plasma chloride measurement (moles/volume) 94 mmol/L 98-107 Carbon dioxide 40 mmol/L 21-32 Serum or plasma anion gap determination (moles/volume) 9 mmol/L 5-14 Serum or plasma urea nitrogen measurement (mass/volume) 12 mg/dL 7-18 Serum or plasma creatinine measurement (mass/volume) 0.70 mg/dL 0.60-1.30 Serum or plasma urea nitrogen/creatinine mass ratio 17 NRG Serum or plasma creatinine measurement with calculation of estimated glomerular filtration rate > NRG Serum or plasma glucose measurement (mass/volume) 156 mg/dL 70-105 Serum or plasma calcium measurement (mass/volume) 8.7 mg/dL 8.5-10.1 Serum or plasma total bilirubin measurement (mass/volume) 0.4 mg/dL 0.1-1.0 Serum or plasma alkaline phosphatase measurement (enzymatic activity/volume) 83 U/L 40-136 Serum or plasma aspartate aminotransferase measurement (enzymatic activity/ volume) 12 U/L 5-34 Serum or plasma alanine aminotransferase measurement (enzymatic activity/volume ) 12 U/L 0-55 Serum or plasma protein measurement (mass/volume) 6.6 g/dL 6.4-8.2 Serum or plasma albumin measurement (mass/volume) 3.8 g/dL 3.2-4.5 Complete blood count (CBC) with automated white blood cell (WBC) differential - 04/13/17 05:50 Blood leukocytes automated count (number/volume) 7.1 10*3/uL 4.3-11.0 Blood erythrocytes automated count (number/volume) 4.75 10*6/uL 4.35-5.85 Venous blood hemoglobin measurement (mass/volume) 14.5 g/dL 13.3-17.7 Blood hematocrit (volume fraction) 48 % 40-54 Automated erythrocyte mean corpuscular volume 101 [foz_us] 80-99 Automated erythrocyte mean corpuscular hemoglobin (mass per erythrocyte) 31 pg 25-34 Automated erythrocyte mean corpuscular hemoglobin concentration measurement ( mass/volume) 30 g/dL 32-36 Automated erythrocyte distribution width ratio 15.1 % 10.0-14.5 Automated blood platelet count (count/volume) 248 10*3/uL 130-400 Automated blood platelet mean volume measurement 10.2 [foz_us] 7.4-10.4 Automated blood neutrophils/100 leukocytes 88 % 42-75 Automated blood lymphocytes/100 leukocytes 10 % 12-44 Blood monocytes/100 leukocytes 2 % 0-12 Automated blood eosinophils/100 leukocytes 0 % 0-10 Automated blood basophils/100 leukocytes 0 % 0-10 Blood neutrophils automated count (number/volume) 6.2 10*3 1.8-7.8 Blood lymphocytes automated count (number/volume) 0.7 10*3 1.0-4.0 Blood monocytes automated count (number/volume) 0.1 10*3 0.0-1.0 Automated eosinophil count 0.0 10*3/uL 0.0-0.3 Automated blood basophil count (count/volume) 0.0 10*3/uL 0.0-0.1 Arterial blood gas measurement - 04/13/17 10:41 Blood pCO2 83 mm[Hg] 35-45 Blood pO2 97 mm[Hg] 79-93 Arterial blood bicarbonate measurement (moles/volume) 43 mmol/L 23-27 Arterial blood base excess by calculation 16.2 mmol/L - 2.5-2.5 Arterial blood oxygen saturation measurement 98 % 94-100 * Inhaled oxygen flow rate 50% FI02 NRG Arterial blood pH measurement with patient temperature correction 7.33 7.37-7.43 Arterial blood carbon dioxide, total measurement (moles/volume) 45.5 mmol/L 21.0-31.0 Body site LEFT RADIAL NRG Assessment of wrist artery patency prior to arterial puncture POSITIVE NRG Setting of ventilation mode NO NRG Measurement of body temperature 97.4 NRG Automated blood complete blood count (hemogram) panel - 04/14/17 04:40 Blood leukocytes automated count (number/volume) 11.2 10*3/uL 4.3-11.0 Blood erythrocytes automated count (number/volume) 4.82 10*6/uL 4.35-5.85 Venous blood hemoglobin measurement (mass/volume) 14.8 g/dL 13.3-17.7 Blood hematocrit (volume fraction) 49 % 40-54 Automated erythrocyte mean corpuscular volume 101 [foz_us] 80-99 Automated erythrocyte mean corpuscular hemoglobin (mass per erythrocyte) 31 pg 25-34 Automated erythrocyte mean corpuscular hemoglobin concentration measurement ( mass/volume) 31 g/dL 32-36 Automated erythrocyte distribution width ratio 15.2 % 10.0-14.5 Automated blood platelet count (count/volume) 253 10*3/uL 130-400 Automated blood platelet mean volume measurement 10.2 [foz_us] 7.4-10.4 Comprehensive metabolic panel - 04/14/17 04:40 Serum or plasma sodium measurement (moles/volume) 142 mmol/L 135-145 Serum or plasma potassium measurement (moles/volume) 4.8 mmol/L 3.6-5.0 Serum or plasma chloride measurement (moles/volume) 93 mmol/L 98-107 Carbon dioxide 41 mmol/L 21-32 Serum or plasma anion gap determination (moles/volume) 8 mmol/L 5-14 Serum or plasma urea nitrogen measurement (mass/volume) 16 mg/dL 7-18 Serum or plasma creatinine measurement (mass/volume) 0.68 mg/dL 0.60-1.30 Serum or plasma urea nitrogen/creatinine mass ratio 24 NRG Serum or plasma creatinine measurement with calculation of estimated glomerular filtration rate > NRG Serum or plasma glucose measurement (mass/volume) 147 mg/dL 70-105 Serum or plasma calcium measurement (mass/volume) 8.9 mg/dL 8.5-10.1 Serum or plasma total bilirubin measurement (mass/volume) 0.4 mg/dL 0.1-1.0 Serum or plasma alkaline phosphatase measurement (enzymatic activity/volume) 78 U/L 40-136 Serum or plasma aspartate aminotransferase measurement (enzymatic activity/ volume) 12 U/L 5-34 Serum or plasma alanine aminotransferase measurement (enzymatic activity/volume ) 9 U/L 0-55 Serum or plasma protein measurement (mass/volume) 6.4 g/dL 6.4-8.2 Serum or plasma albumin measurement (mass/volume) 3.6 g/dL 3.2-4.5 Arterial blood gas measurement - 04/14/17 04:45 Blood pCO2 80 mm[Hg] 35-45 Blood pO2 63 mm[Hg] 79-93 Arterial blood bicarbonate measurement (moles/volume) 44 mmol/L 23-27 Arterial blood base excess by calculation 17.9 mmol/L - 2.5-2.5 Arterial blood oxygen saturation measurement 93 % 94-100 * Inhaled oxygen flow rate 40% BIPAP NRG Arterial blood pH measurement with patient temperature correction 7.36 7.37-7.43 Arterial blood carbon dioxide, total measurement (moles/volume) 46.8 mmol/L 21.0-31.0 Body site L RAD NRG Assessment of wrist artery patency prior to arterial puncture YES- POS NRG Setting of ventilation mode NO NRG Measurement of body temperature 98.0 NRG Automated blood complete blood count (hemogram) panel - 04/15/17 04:25 Blood leukocytes automated count (number/volume) 9.2 10*3/uL 4.3-11.0 Blood erythrocytes automated count (number/volume) 4.84 10*6/uL 4.35-5.85 Venous blood hemoglobin measurement (mass/volume) 14.7 g/dL 13.3-17.7 Blood hematocrit (volume fraction) 48 % 40-54 Automated erythrocyte mean corpuscular volume 99 [foz_us] 80-99 Automated erythrocyte mean corpuscular hemoglobin (mass per erythrocyte) 30 pg 25-34 Automated erythrocyte mean corpuscular hemoglobin concentration measurement ( mass/volume) 31 g/dL 32-36 Automated erythrocyte distribution width ratio 15.3 % 10.0-14.5 Automated blood platelet count (count/volume) 255 10*3/uL 130-400 Automated blood platelet mean volume measurement 10.3 [foz_us] 7.4-10.4 Whole blood basic metabolic panel - 04/15/17 04:25 Serum or plasma sodium measurement (moles/volume) 141 mmol/L 135-145 Serum or plasma potassium measurement (moles/volume) 4.7 mmol/L 3.6-5.0 Serum or plasma chloride measurement (moles/volume) 95 mmol/L 98-107 Carbon dioxide 36 mmol/L 21-32 Serum or plasma anion gap determination (moles/volume) 10 mmol/L 5-14 Serum or plasma urea nitrogen measurement (mass/volume) 20 mg/dL 7-18 Serum or plasma creatinine measurement (mass/volume) 0.67 mg/dL 0.60-1.30 Serum or plasma urea nitrogen/creatinine mass ratio 30 NRG Serum or plasma creatinine measurement with calculation of estimated glomerular filtration rate > NRG Serum or plasma glucose measurement (mass/volume) 120 mg/dL 70-105 Serum or plasma calcium measurement (mass/volume) 8.4 mg/dL 8.5-10.1 Automated blood complete blood count (hemogram) panel - 04/16/17 05:35 Blood leukocytes automated count (number/volume) 8.2 10*3/uL 4.3-11.0 Blood erythrocytes automated count (number/volume) 4.97 10*6/uL 4.35-5.85 Venous blood hemoglobin measurement (mass/volume) 15.2 g/dL 13.3-17.7 Blood hematocrit (volume fraction) 48 % 40-54 Automated erythrocyte mean corpuscular volume 97 [foz_us] 80-99 Automated erythrocyte mean corpuscular hemoglobin (mass per erythrocyte) 31 pg 25-34 Automated erythrocyte mean corpuscular hemoglobin concentration measurement ( mass/volume) 32 g/dL 32-36 Automated erythrocyte distribution width ratio 15.1 % 10.0-14.5 Automated blood platelet count (count/volume) 242 10*3/uL 130-400 Automated blood platelet mean volume measurement 10.5 [foz_us] 7.4-10.4 Whole blood basic metabolic panel - 04/16/17 05:35 Serum or plasma sodium measurement (moles/volume) 140 mmol/L 135-145 Serum or plasma potassium measurement (moles/volume) 4.6 mmol/L 3.6-5.0 Serum or plasma chloride measurement (moles/volume) 97 mmol/L 98-107 Carbon dioxide 32 mmol/L 21-32 Serum or plasma anion gap determination (moles/volume) 11 mmol/L 5-14 Serum or plasma urea nitrogen measurement (mass/volume) 16 mg/dL 7-18 Serum or plasma creatinine measurement (mass/volume) 0.64 mg/dL 0.60-1.30 Serum or plasma urea nitrogen/creatinine mass ratio 25 NRG Serum or plasma creatinine measurement with calculation of estimated glomerular filtration rate > NRG Serum or plasma glucose measurement (mass/volume) 133 mg/dL 70-105 Serum or plasma calcium measurement (mass/volume) 8.5 mg/dL 8.5-10.1 Complete blood count (CBC) with automated white blood cell (WBC) differential - 10/18/17 11:21 Blood leukocytes automated count (number/volume) 9.6 10*3/uL 4.3-11.0 Blood erythrocytes automated count (number/volume) 4.41 10*6/uL 4.35-5.85 Venous blood hemoglobin measurement (mass/volume) 14.1 g/dL 13.3-17.7 Blood hematocrit (volume fraction) 42 % 40-54 Automated erythrocyte mean corpuscular volume 95 [foz_us] 80-99 Automated erythrocyte mean corpuscular hemoglobin (mass per erythrocyte) 32 pg 25-34 Automated erythrocyte mean corpuscular hemoglobin concentration measurement ( mass/volume) 34 g/dL 32-36 Automated erythrocyte distribution width ratio 13.5 % 10.0-14.5 Automated blood platelet count (count/volume) 274 10*3/uL 130-400 Automated blood platelet mean volume measurement 10.0 [foz_us] 7.4-10.4 Automated blood neutrophils/100 leukocytes 67 % 42-75 Automated blood lymphocytes/100 leukocytes 22 % 12-44 Blood monocytes/100 leukocytes 8 % 0-12 Automated blood eosinophils/100 leukocytes 3 % 0-10 Automated blood basophils/100 leukocytes 1 % 0-10 Blood neutrophils automated count (number/volume) 6.4 10*3 1.8-7.8 Blood lymphocytes automated count (number/volume) 2.1 10*3 1.0-4.0 Blood monocytes automated count (number/volume) 0.7 10*3 0.0-1.0 Automated eosinophil count 0.3 10*3/uL 0.0-0.3 Automated blood basophil count (count/volume) 0.1 10*3/uL 0.0-0.1 Comprehensive metabolic panel - 10/18/17 11:21 Serum or plasma sodium measurement (moles/volume) 142 mmol/L 135-145 Serum or plasma potassium measurement (moles/volume) 4.1 mmol/L 3.6-5.0 Serum or plasma chloride measurement (moles/volume) 99 mmol/L 98-107 Carbon dioxide 29 mmol/L 21-32 Serum or plasma anion gap determination (moles/volume) 14 mmol/L 5-14 Serum or plasma urea nitrogen measurement (mass/volume) 15 mg/dL 7-18 Serum or plasma creatinine measurement (mass/volume) 0.79 mg/dL 0.60-1.30 Serum or plasma urea nitrogen/creatinine mass ratio 19 NRG Serum or plasma creatinine measurement with calculation of estimated glomerular filtration rate > NRG Serum or plasma glucose measurement (mass/volume) 125 mg/dL 70-105 Serum or plasma calcium measurement (mass/volume) 9.7 mg/dL 8.5-10.1 Serum or plasma total bilirubin measurement (mass/volume) 0.5 mg/dL 0.1-1.0 Serum or plasma alkaline phosphatase measurement (enzymatic activity/volume) 73 U/L 40-136 Serum or plasma aspartate aminotransferase measurement (enzymatic activity/ volume) 51 U/L 5-34 Serum or plasma alanine aminotransferase measurement (enzymatic activity/volume ) 58 U/L 0-55 Serum or plasma protein measurement (mass/volume) 7.2 g/dL 6.4-8.2 Serum or plasma albumin measurement (mass/volume) 4.3 g/dL 3.2-4.5 Serum or plasma lithium measurement (moles/volume) - 10/18/17 11:21 BNP level < pg/mL <100.0 THYROID STIMULATING HORMONE - 10/18/17 11:21 THYROID STIMULATING HORMONE 1.60 u[iU]/mL 0.35-4.94 [id number] - 11/14/17 13:19 Serum or plasma urea nitrogen measurement (mass/volume) 18 mg/dL 7-18 Serum or plasma creatinine measurement (mass/volume) 0.80 mg/dL 0.60-1.30 Serum or plasma urea nitrogen/creatinine mass ratio 23 NRG Serum or plasma creatinine measurement with calculation of estimated glomerular filtration rate > NRG Encounters ACCT No. Visit Date/Time Discharge Status Pt. Type Provider Facility Loc./Unit Complaint [id number] 11/15/2017 08:55:00 11/15/2017 23:59:59 [facility] Outpatient JULIAN ACUÑA DO [facility] RAD PERSISTANT LINGULAR CONSOLIDATE [id number] 11/14/2017 13:09:00 11/14/2017 23:59:59 [facility] Outpatient JULIAN ACUÑA DO [facility] LAB RENAL INSUFFICIENCY [id number] 11/10/2017 10:53:00 11/10/2017 23:59:59 [facility] Outpatient JULAIN ACUÑA DO [facility] RAD PNEUMONIA [id number] 10/27/2017 08:46:00 10/27/2017 23:59:59 [facility] Outpatient JULIAN ACUÑA DO [facility] RAD FILTRATE IN THE LUNGS [id number] 10/18/2017 11:01:00 10/18/2017 23:59:59 [facility] Outpatient JULIAN ACUÑA DO [facility] RAD COPD,FATIGUE,SOB [id number] 04/12/2017 17:22:00 04/19/2017 13:12:00 DIS Inpatient JULIAN ACUÑA DO [facility] 4TH COPD ACUTE EXACERBATION,HYPOXIA [id number] 03/10/2016 09:20:00 03/10/2016 23:59:59 [facility] Outpatient AMINAH CHAMORRO APRN [facility] RT COPD,TOBACCO DEPENDENCE IN REMISSION [id number] 01/25/2016 03:45:00 01/30/2016 13:30:00 DIS Inpatient JULIAN ACUÑA DO [facility] 4TH AECOPD LOW O2 TOBACCO ABUSE [id number] 08/06/2013 09:26:00 08/06/2013 23:59:59 CLS Outpatient JULIAN ACUÑA DO [facility] RAD PNEUMONIA [id number] 07/30/2013 15:07:00 07/30/2013 23:59:59 [facility] Outpatient JULIAN ACUÑA DO [facility] RAD PNUEMONIA [id number] 07/27/2013 16:13:00 07/27/2013 23:59:59 CLS Outpatient JULIAN ACUÑA DO [facility] RAD COUGH AND CONGESTION [id number] 01/19/2013 11:27:00 01/19/2013 23:59:59 CLS Outpatient [id number] 11/30/2012 17:42:00 12/06/2012 17:25:00 DIS Inpatient [id number] 11/29/2012 08:42:00 11/29/2012 23:59:59 CLS Outpatient
[2018-03-06] MEDS ORDERED: methylPREDNISolone 125 MG (Solu-MEDROL) VIAL IVP ONE (12:00)
[2018-03-06] MEDS ORDERED: RT-ALBUTEROL/IPRATROPIUM 3 ML (DUONEB) VIAL INH ONE (12:00)
--- NOTE | 2018-03-06 12:04 | ED Cough/URI ---
General Chief Complaint: Respiratory Problems Stated Complaint: COPD Nursing Triage Note: PT HAS A HX OF COPD AND OVER THE LAST COUPLE DAYS HAS BEGAN TO BECOME SOA UPON EXERTION. STATED HE STOPPED USING HIS CPAP A WEEK AGO BECAUSE HIS OXYGEN LEVELS WHERE ALWAYS LOWER ON THE CPAP VS SIMPLE 02. Source: patient Exam Limitations: no limitations History of Present Illness Date Seen by Provider: Mar 06, 2018 Time Seen by Provider: 12:02 Initial Comments To ER with "a few days" of shortness of breath worse than usual. He wears oxygen per nasal cannula at 2 L ffxhoq-qvi-dbmil every day. For the past few days he's felt increasingly short of breath. He does take Lasix. He denies any cough but is out of the ordinary for him or fevers or chills. Upon arrival to the emergency room while wearing his oxygen at 2 L his oxygen saturation is 82- 85%. Timing/Duration: constant Severity/Quality: moderate Associated Symptoms: shortness of breath Allergies and Home Medications Allergies Coded Allergies: No Known Drug Allergies (Unverified , 11/30/12) Home Medications Albuterol Sulfate 18 Gm Hfa.aer.ad, 2 PUFF IH Q6H PRN for SHORTNESS OF BREATH, ( Reported) Cetirizine HCl 10 Mg Tablet, 10 MG PO 1200, (Reported) LAST FILLED 03/10/17 #30 Furosemide 40 Mg Tablet, 40 MG PO 1200, (Reported) Montelukast Sodium 10 Mg Tablet, 10 MG PO 2359, (Reported) LAST FILLED 03/10/17 #30 Pantoprazole Sodium 40 Mg Tablet.dr, 40 MG PO 1200, (Reported) Prednisone 10 Mg Tab.ds.pk, 10 MG PO DAILY Start at (40mg )daily,decrease by 1 tab(10MG)daily. Prescribed by: MICHELLE OQUENDO on 04/19/17 1213 Patient Home Medication List Home Medication List Reviewed: Yes Review of Systems Review of Systems Constitutional: see HPI; No chills, No fever EENTM: see HPI Respiratory: see HPI, cough, short of breath; No wheezing Cardiovascular: no symptoms reported Genitourinary: no symptoms reported Musculoskeletal: no symptoms reported Skin: no symptoms reported Psychiatric/Neurological: No Symptoms Reported Hematologic/Lymphatic: No Symptoms Reported Past Ytvuqcq-Qeqviy-Hldbuo Hx Patient Social History Alcohol Beverage of Choice: Beer Type Used: Cigarettes Recent Foreign Travel: No Contact w/Someone Who Travel: No Recent Infectious Disease Expo: No Recent Hopitalizations: No Seasonal Allergies Seasonal Allergies: No Past Medical History Surgeries: Yes (KNEE ARTHROSCOPY, ANKLE SURGERY, ULCER REPAIR) Gallbladder Respiratory: Yes (FCI [facility]) Pneumonia, COPD Currently Using CPAP: No Currently Using BIPAP: No Cardiac: Yes Hypertension Neurological: No Reproductive Disorders: No Genitourinary: No Gastrointestinal: Yes Gastroesophageal Reflux, Ulcer, Gall Bladder Disease Musculoskeletal: No Endocrine: No HEENT: No Cancer: No Psychosocial: No Integumentary: No (HX CELLULITIS lower right leg) Psoriasis Blood Disorders: No Family Medical History Asthma 19 MOTHER Bone cancer 19 MOTHER Cardiovascular disease 19 FATHER Diabetes mellitus grandma Myocardial infarction 19 FATHER No Pertinent Family Hx Physical Exam Vital Signs - First Documented 03/06/18 11:51 Temp 98.3 Pulse 107 Resp 22 B/P (MAP) 143/80 (101) Pulse Ox 86 O2 Delivery Nasal Cannula O2 Flow Rate 2.00 Capillary Refill : Less Than 3 Seconds Height: 5'10.00" Weight: 300lbs. 0.0oz. 136.105281bp; 40.6 BMI Method:Stated General Appearance: WD/WN, no apparent distress Eyes: Bilateral Eye Normal Inspection, Bilateral Eye PERRL, Bilateral Eye EOMI HEENT: PERRL/EOMI, normal ENT inspection Respiratory: no accessory muscle use, decreased breath sounds; No wheezing Cardiovascular: regular rate, rhythm, no murmur Gastrointestinal: normal bowel sounds, non tender Extremities: pedal edema (trace bilateral lower extremity) Neurologic/Psychiatric: alert, normal mood/affect, oriented x 3 Skin: normal color, warm/dry Progress/Results/Core Measures Suspected Sepsis Recent Fever Within 48 Hours: No Infection Criteria Present: None New/Unexplained Altered Menta: No Sepsis Screen: No Definite Risk SIRS Temperature:98.3 Pulse: 107 Respiratory Rate: 22 Laboratory Tests 03/06/18 12:24: White Blood Count 8.2 Blood Pressure 143 /80 Mean: 101 Laboratory Tests 03/06/18 12:24: Creatinine 0.74, Platelet Count 267, Total Bilirubin 0.4 Results/Orders Lab Results Laboratory Tests Test 03/06/18 12:11 03/06/18 12:24 03/06/18 12:40 Range/Units Blood Gas Puncture Site LT RAD LT RAD Blood Gas Patient Temperature 98.0 98.5 Arterial Blood pH 7.32 *L 7.35 L 7.37-7.43 Arterial Blood Partial Pressure CO2 94 *H 87 *H 35-45 MMHG Arterial Blood Partial Pressure O2 41 L 72 L 79-93 MMHG Arterial Blood HCO3 48 *H 47 *H 23-27 MMOL/L Arterial Blood Total CO2 50.4 H 49.2 H 21.0-31.0 MMOL/L Arterial Blood Oxygen Saturation 60 L 94 94-100 % Arterial Blood Base Excess 20.3 H 19.7 H -2.5-2.5 MMOL/L Kerwin Test YES-POS YES-POS Blood Gas Ventilator Setting NO NO Blood Gas Inspired Oxygen 4 4L White Blood Count 8.2 4.3-11.0 10^3/uL Red Blood Count 4.95 4.35-5.85 10^6/uL Hemoglobin 15.3 13.3-17.7 G/DL Hematocrit 49 40-54 % Mean Corpuscular Volume 100 H 80-99 FL Mean Corpuscular Hemoglobin 31 25-34 PG Mean Corpuscular Hemoglobin Concent 31 L 32-36 G/DL Red Cell Distribution Width 14.3 10.0-14.5 % Platelet Count 267 130-400 10^3/uL Mean Platelet Volume 9.8 7.4-10.4 FL Neutrophils (%) (Auto) 70 42-75 % Lymphocytes (%) (Auto) 19 12-44 % Monocytes (%) (Auto) 8 0-12 % Eosinophils (%) (Auto) 2 0-10 % Basophils (%) (Auto) 1 0-10 % Neutrophils # (Auto) 5.7 1.8-7.8 X 10^3 Lymphocytes # (Auto) 1.6 1.0-4.0 X 10^3 Monocytes # (Auto) 0.7 0.0-1.0 X 10^3 Eosinophils # (Auto) 0.2 0.0-0.3 10^3/uL Basophils # (Auto) 0.1 0.0-0.1 10^3/uL Sodium Level 138 135-145 MMOL/L Potassium Level 4.3 3.6-5.0 MMOL/L Chloride Level 89 L 98-107 MMOL/L Carbon Dioxide Level 41 H 21-32 MMOL/L Anion Gap 8 5-14 MMOL/L Blood Urea Nitrogen 13 7-18 MG/DL Creatinine 0.74 0.60-1.30 MG/DL Estimat Glomerular Filtration Rate > 60 BUN/Creatinine Ratio 18 Glucose Level 117 H 70-105 MG/DL Calcium Level 9.3 8.5-10.1 MG/DL Corrected Calcium 9.1 8.5-10.1 MG/DL Total Bilirubin 0.4 0.1-1.0 MG/DL Aspartate Amino Transf (AST/SGOT) 13 5-34 U/L Alanine Aminotransferase (ALT/SGPT) 15 0-55 U/L Alkaline Phosphatase 74 40-136 U/L Total Protein 7.1 6.4-8.2 GM/DL Albumin 4.2 3.2-4.5 GM/DL My Orders Orders - YONY CALDERA APRN Cbc With Automated Diff (03/06/18 11:57) Comprehensive Metabolic Panel (03/06/18 11:57) Troponin I (03/06/18 11:57) BNP (03/06/18 11:57) Chest 1 View, Ap/Pa Only (03/06/18 11:57) Methylprednisolone Sod Succ (Solu-Medrol (03/06/18 12:00) Albuterol/Ipra Inhalation Soln (Duoneb I (03/06/18 12:00) Svn Small Volume Nebulizer (03/06/18 11:57) Arterial Blood Gas (03/06/18 12:13) Arterial Blood Gas (03/06/18 12:40) Arterial Blood Draw (03/06/18 ) Bipap (Bilevel) Set Up (03/06/18 12:54) Medications Given in ED Current Medications Medications Dose Ordered Sig/Rogers Route Start Time Stop Time Status Last Admin Dose Admin Albuterol/ Ipratropium 3 ml ONCE ONCE INH 03/06/18 12:00 03/06/18 12:01 DC 03/06/18 12:10 3 ML Methylprednisolone Sodium Succinate 125 mg ONCE ONCE IVP 03/06/18 12:00 03/06/18 12:01 DC 03/06/18 12:38 125 MG Vital Signs/I&O 03/06/18 03/06/18 11:51 12:10 Temp 98.3 Pulse 107 Resp 22 B/P (MAP) 143/80 (101) Pulse Ox 86 95 O2 Delivery Nasal Cannula Nasal Cannula O2 Flow Rate 2.00 4.00 Capillary Refill : Less Than 3 Seconds Blood Pressure Mean: 101 Departure Communication (Admissions) Time/Spoke to Admitting Phy: 12:[address] Acuña. Given the hypercarbia we'll start BiPAP, Rocephin, steroids. Impression Primary Impression: COPD (chronic obstructive pulmonary disease) Qualified Codes: J44.1 - Chronic obstructive pulmonary disease with (acute) exacerbation Additional Impression: Hypercarbia Disposition: ADMITTED INPATIENT Condition: Stable Admissions Decision to Admit Reason: Admit from ER (General) Decision to Admit/Date: Mar 06, 2018 Time/Decision to Admit Time: 12:55 Departure-Patient Inst. Referrals: JULIAN ACUÑA DO (PCP/Family) Primary Care Physician YONY CALDERA APRN Mar 06, 2018 12:04
[2018-03-06 12:20] LABS: ABG BASE EXCESS 20.3 MMOL/L (-2.5-2.5); ABG OXYGEN SATURATION 60 % (94-100); ABG PO2 41 MMHG (79-93); ABG TCO2 50.4 MMOL/L (21.0-31.0)
[2018-03-06 12:25] LABS: ABG PCO2 94 MMHG (35-45); ABG PH 7.32 (7.37-7.43); ALLENS TEST YES-POS; INSPIRED O2 4; VENTILATOR NO
--- NOTE | 2018-03-06 12:30 | Diagnostic Imaging Report ---
INDICATION: Increasing shortness of air on exertion. TIME OF EXAM: 12:03 p.m. COMPARISON: Correlation is made with prior study from 11/10/2017. FINDINGS: The heart size is stable. The lungs are clear. No infiltrates are detected. The pulmonary vascularity is normal. No effusion or pneumothorax is detected. IMPRESSION: No acute cardiopulmonary process is detected. Dictated by: Dictated on workstation # [id number]
[2018-03-06 12:32] LABS: BASOPHILS # (AUTO) 0.1 10^3/uL (0.0-0.1); BASOPHILS % (AUTO) 1 % (0-10); EOSINOPHILS # (AUTO) 0.2 10^3/uL (0.0-0.3); EOSINOPHILS % (AUTO) 2 % (0-10); HEMATOCRIT 49 % (40-54); HEMOGLOBIN 15.3 G/DL (13.3-17.7); LYMPHOCYTES # (AUTO) 1.6 X 10^3 (1.0-4.0); LYMPHOCYTES % (AUTO) 19 % (12-44); MEAN CORPUSCULAR HEMOGLOBIN 31 PG (25-34); MEAN CORPUSCULAR HGB CONC 31 G/DL (32-36); MEAN CORPUSCULAR VOLUME 100 FL (80-99); MEAN PLATELET VOLUME 9.8 FL (7.4-10.4); MONOCYTES # (AUTO) 0.7 X 10^3 (0.0-1.0); MONOCYTES % (AUTO) 8 % (0-12); NEUTROPHILS # (AUTO) 5.7 X 10^3 (1.8-7.8); NEUTROPHILS % (AUTO) 70 % (42-75); PLATELET COUNT 267 10^3/uL (130-400); RED BLOOD COUNT 4.95 10^6/uL (4.35-5.85); RED CELL DISTRIBUTION WIDTH 14.3 % (10.0-14.5); WHITE BLOOD COUNT 8.2 10^3/uL (4.3-11.0)
[2018-03-06 12:46] LABS: ABG BASE EXCESS 19.7 MMOL/L (-2.5-2.5); ABG OXYGEN SATURATION 94 % (94-100); ABG PH 7.35 (7.37-7.43); ABG PO2 72 MMHG (79-93); ABG TCO2 49.2 MMOL/L (21.0-31.0)
[2018-03-06 12:50] LABS: ABG PCO2 87 MMHG (35-45); ALLENS TEST YES-POS; INSPIRED O2 4L
[2018-03-06 12:51] LABS: PATIENT TEMP 98.5; VENTILATOR NO
[2018-03-06 12:52] LABS: ALANINE AMINOTRANSFERASE 15 U/L (0-55); ALBUMIN 4.2 GM/DL (3.2-4.5); ALKALINE PHOSPHATASE 74 U/L (40-136); BILIRUBIN,TOTAL 0.4 MG/DL (0.1-1.0); BUN/CREATININE RATIO 18; CALCIUM 9.3 MG/DL (8.5-10.1); CARBON DIOXIDE 41 MMOL/L (21-32); CHLORIDE 89 MMOL/L (98-107); CREATININE SERUM 0.74 MG/DL (0.60-1.30); GFR ESTIMATED > 60; GLUCOSE 117 MG/DL (70-105); POTASSIUM 4.3 MMOL/L (3.6-5.0); SODIUM 138 MMOL/L (135-145); TOTAL PROTEIN 7.1 GM/DL (6.4-8.2)
--- OUTSIDE RECORDS SUMMARY | 2018-03-06 13:45 | XMS REPORT | Continuity of Care Document ---
Author Author [facility] Organization [facility] Address Unknown Phone Unavailable Allergies Active Description Code Type Severity Reaction Onset Reported/Identified Relationship to Patient Clinical Status Yes No Known Drug Allergies [id number] Drug Allergy Unknown N/A 11/30/2012 Medications There [...] OBSTRUCTIVE PULMONARY DISEASE, U 04/12/2017 AMINAH CHAMORRO ACTIVE DIRECTORY SPECIALIST Ot R05 COUGH 04/14/2017 GELLENDER DO, JULIAN [...] FINDING OF ARDEN 10/28/2017 GELLENDER DO, JULIAN Dia Ot R91.8 OTHER [...] J18.1 LOBAR PNEUMONIA, UNSPECIFIED ORGANISM 02/06/2018 JULIAN ACUÑA DO Ot N28.9 DISORDER OF KIDNEY AND [...] 11:21 THYROID STIMULATING HORMONE 1.60 u[iU]/mL 0.35-4.94 [id number] - 11/14/17 13:19 Serum or plasma urea nitrogen measurement (mass/volume) 18 mg/dL 7-18 Serum or plasma creatinine measurement (mass/volume) 0.80 mg/dL 0.60-1.30 Serum or plasma urea nitrogen/creatinine mass ratio 23 NRG Serum or plasma creatinine measurement with calculation of estimated glomerular filtration rate > NRG Encounters ACCT No. Visit Date/Time Discharge Status Pt. Type Provider Facility Loc./Unit Complaint [id number] 11/15/2017 08:55:00 11/15/2017 23:59:59 [facility] Outpatient JULIAN ACUÑA DO [facility] RAD PERSISTANT LINGULAR CONSOLIDATE [id number] 11/14/2017 13:09:00 11/14/2017 23:59:59 [facility] Outpatient JULIAN ACUÑA DO [facility] LAB RENAL INSUFFICIENCY [id number] 11/10/2017 10:53:00 11/10/2017 23:59:59 [facility] Outpatient JULIAN ACUÑA DO [facility] RAD PNEUMONIA [id number] 10/27/2017 08:46:00 10/27/2017 23:59:59 [facility] Outpatient JULIAN ACUÑA DO [facility] RAD FILTRATE IN THE LUNGS [id number] 10/18/2017 11:01:00 10/18/2017 23:59:59 [facility] Outpatient JULIAN ACUÑA DO [facility] RAD COPD,FATIGUE,SOB [id number] 04/12/2017 17:22:00 04/19/2017 13:12:00 DIS Inpatient JULIAN ACUÑA DO [facility] 4TH COPD ACUTE EXACERBATION,HYPOXIA [id number] 03/10/2016 09:20:00 03/10/2016 23:59:59 [facility] Outpatient AMINAH CHAMORRO APRN [facility] RT COPD,TOBACCO DEPENDENCE IN REMISSION [id number] 01/25/2016 03:45:00 01/30/2016 13:30:00 DIS Inpatient JULIAN ACUÑA DO [facility] 4TH AECOPD LOW O2 TOBACCO ABUSE [id number] 08/06/2013 09:26:00 08/06/2013 23:59:59 [facility] Outpatient JULIAN ACUÑA DO [facility] RAD PNEUMONIA [id number] 07/30/2013 15:07:00 07/30/2013 23:59:59 [facility] Outpatient JULIAN ACUÑA DO [facility] RAD PNUEMONIA [id number] 07/27/2013 16:13:00 07/27/2013 23:59:59 [facility] Outpatient JULIAN ACUÑA DO [facility] RAD COUGH AND CONGESTION [id number] 01/19/2013 11:27:00 01/19/2013 23:59:59 CLS Outpatient [id number] 11/30/2012 17:42:00 12/06/2012 17:25:00 DIS Inpatient [id number] 11/29/2012 08:42:00 11/29/2012 23:59:59 CLS Outpatient
[2018-03-06] MEDS ORDERED: CATHETER FLUSH 10 ML SYR IV PRN (14:15)
[2018-03-06 14:17] VITALS: BP 141/80
[2018-03-06] MEDS ORDERED: FLU QUADRIvalent (5+ YOA) 2018-2019 (AFLURIA) 0.5 ML IM ONE (15:00)
[2018-03-06] MEDS: NS IV 1000 ML 1,000 ML IV SCH (15:03)
[2018-03-06 16:05] VITALS: BP 146/80
[2018-03-06 16:08] VITALS: BP 141/80
[2018-03-06] MEDS ORDERED: RT-ALBUTEROL/IPRATROPIUM 3 ML (DUONEB) VIAL INH PRN (16:30)
[2018-03-06] MEDS: RT-ALBUTEROL/IPRATROPIUM 3 ML (DUONEB) VIAL INH SCH ×2 (18:34→22:07)
[2018-03-06] MEDS: RT-ADVAIR HFA 115/21 MCG PER PUFF IH SCH (18:34)
[2018-03-06] MEDS: methylPREDNISolone 125 MG (Solu-MEDROL) VIAL IV SCH (19:43)
[2018-03-06 20:00] VITALS: BP 138/74
[2018-03-06] MEDS ORDERED: MONTELUKAST 10 MG (SINGULAIR) TAB PO SCH (23:59)
[2018-03-07] VITALS: BP 134/85
[2018-03-07] MEDS: methylPREDNISolone 125 MG (Solu-MEDROL) VIAL IV SCH ×5 (00:23→23:40)
[2018-03-07] MEDS: NS IV 1000 ML 1,000 ML IV SCH ×2 (01:41→12:08)
[2018-03-07] MEDS: RT-ALBUTEROL/IPRATROPIUM 3 ML (DUONEB) VIAL INH SCH ×6 (02:20→22:22)
[2018-03-07 02:41] LABS: ABG OXYGEN SATURATION 88 % (94-100); ABG PO2 56 MMHG (79-93); ABG TCO2 44.4 MMOL/L (21.0-31.0); ALLENS TEST POSITIVE
[2018-03-07 02:42] LABS: INSPIRED O2 10; VENTILATOR NO
[2018-03-07 02:45] LABS: ABG PCO2 80 MMHG (35-45); ABG PH 7.33 (7.37-7.43); PATIENT TEMP 96.2
[2018-03-07 03:25] VITALS: BP 131/60
[2018-03-07 06:43] LABS: BASOPHILS % (AUTO) 0 % (0-10); EOSINOPHILS % (AUTO) 0 % (0-10); HEMATOCRIT 49 % (40-54); HEMOGLOBIN 14.8 G/DL (13.3-17.7); LYMPHOCYTES # (AUTO) 0.9 X 10^3 (1.0-4.0); LYMPHOCYTES % (AUTO) 10 % (12-44); MEAN CORPUSCULAR HEMOGLOBIN 30 PG (25-34); MEAN CORPUSCULAR HGB CONC 30 G/DL (32-36); MEAN CORPUSCULAR VOLUME 100 FL (80-99); MEAN PLATELET VOLUME 10.6 FL (7.4-10.4); MONOCYTES # (AUTO) 0.2 X 10^3 (0.0-1.0); MONOCYTES % (AUTO) 2 % (0-12); NEUTROPHILS % (AUTO) 88 % (42-75); PLATELET COUNT 268 10^3/uL (130-400); RED BLOOD COUNT 4.92 10^6/uL (4.35-5.85); RED CELL DISTRIBUTION WIDTH 14.3 % (10.0-14.5)
[2018-03-07 06:57] LABS: ALANINE AMINOTRANSFERASE 14 U/L (0-55); ALBUMIN 4.2 GM/DL (3.2-4.5); ALKALINE PHOSPHATASE 74 U/L (40-136); BILIRUBIN,TOTAL 0.3 MG/DL (0.1-1.0); BUN/CREATININE RATIO 17; CALCIUM 9.5 MG/DL (8.5-10.1); CARBON DIOXIDE 37 MMOL/L (21-32); CHLORIDE 95 MMOL/L (98-107); CREATININE SERUM 0.78 MG/DL (0.60-1.30); GFR ESTIMATED > 60; GLUCOSE 159 MG/DL (70-105); POTASSIUM 4.4 MMOL/L (3.6-5.0); SODIUM 142 MMOL/L (135-145); TOTAL PROTEIN 7.1 GM/DL (6.4-8.2)
[2018-03-07] MEDS: RT-ADVAIR HFA 115/21 MCG PER PUFF IH SCH ×2 (07:08→19:40)
[2018-03-07] MEDS: UMECLIDINIUM BROMIDE (INCRUSE ELLIPTA) 7'S IH SCH (07:08)
--- NOTE | 2018-03-07 07:35 | History & Physicial ---
History of Present Illness History of Present Illness Reason for visit/HPI Patient has history of COPD the. Patient has been short of breath on exertion. Patient stopped using his CPAP one week ago. Patient stated 2 L of nasal oxygen at home gave him a pulse ox of over 90. In emergency room pulse ox was 82-85 on 2 L of nasal oxygen. Patient states he was sleeping all the time. Patient will get up and eat a little better and would go right back to sleep.. Patient stopped smoking 35 weeks ago area Patient states she's back her and wants to check for kidney infection. Previous surgery perforated small intestines and gallbladder Date of Admission Mar 06, 2018 at 13:02 Time Seen by a Provider: 07:30 I consulted on this patient on 03/07/18 07:22 Attending Physician Guilherme Acuña DO Admitting Physician Guilherme Acuña DO Consult Allergies and Home Medications Allergies Coded Allergies: No Known Drug Allergies (Unverified , 11/30/12) Home Medications Albuterol Sulfate 18 Gm Hfa.aer.ad, 2 PUFF IH Q6H PRN for SHORTNESS OF BREATH, ( Reported) Cetirizine HCl 10 Mg Tablet, 10 MG PO 1200, (Reported) LAST FILLED 03/10/17 #30 Furosemide 40 Mg Tablet, 40 MG PO 1200, (Reported) Montelukast Sodium 10 Mg Tablet, 10 MG PO 2359, (Reported) LAST FILLED 03/10/17 #30 Pantoprazole Sodium 40 Mg Tablet.dr, 40 MG PO 1200, (Reported) Prednisone 10 Mg Tab.ds.pk, 10 MG PO DAILY Start at (40mg )daily,decrease by 1 tab(10MG)daily. Prescribed by: MICHELLE OQUENDO on 04/19/17 1213 Patient Home Medication List Home Medication List Reviewed: Yes Past Azaztfx-Uhtwwr-Msmixc Hx Patient Social History Employed/Student: employed Alcohol Use: Occasionally Uses Alcohol Beverage of Choice: Beer Recreational Drug Use: No Smoking Status: Current Someday Smoker Type Used: Cigarettes Recent Foreign Travel: No Contact w/other who traveled: No Recent Hopitalizations: No Recent Infectious Disease Expo: No Immunizations Up To Date Pediatric: No Seasonal Allergies Seasonal Allergies: No Surgeries Yes (KNEE ARTHROSCOPY, ANKLE SURGERY, ULCER REPAIR) Gallbladder Respiratory Yes (LONGTERM VENT 2012) Currently Using CPAP: No Currently Using BIPAP: No (uses vent a mask at night) Cardiovascular Yes Hypertension Neurological No Reproductive System Hx Reproductive Disorders: No Genitourinary No Gastrointestinal Yes (STILL HAS 3 HERNIA'S) Gastroesophageal Reflux, Ulcer Musculoskeletal Yes Arthritis Endocrine History of Endocrine Disorders: No HEENT History of HEENT Disorders: Yes HEENT Disorders: Cataract Cancer No Psychosocial History of Psychiatric Problem: No Integumentary History of Skin or Integumenta: No (HX CELLULITIS lower right leg) Skin/Integumentary Disorders: Psoriasis Blood Transfusions History of Blood Disorders: No Family Medical History Significant Family History: No Pertinent Family Hx Family Hx: Asthma 19 MOTHER Bone cancer 19 MOTHER Cardiovascular disease 19 FATHER Diabetes mellitus grandma Myocardial infarction 19 FATHER Review of Systems Constitutional: weakness EENTM: no symptoms reported Respiratory: short of breath Cardiovascular: no symptoms reported Gastrointestinal: no symptoms reported Genitourinary: other (Back pain) Physical Exam Vital Signs Vital Signs - First Documented 03/06/18 03/06/18 11:51 16:08 Temp 98.3 Pulse 107 Resp 22 B/P (MAP) 143/80 (101) Pulse Ox 86 O2 Delivery Nasal Cannula O2 Flow Rate 2.00 FiO2 40 Capillary Refill : Less Than 3 Seconds Height, Weight, BMI Height: 5'10.00" Weight: 253lbs. 14.0oz. 115.491250cd; 40.6 BMI Method:Stated General Appearance: No Apparent Distress, WD/WN Eyes: Bilateral Eye Normal Inspection HEENT: Normal ENT Inspection Neck: Full Range of Motion, Normal Inspection Respiratory: No Accessory Muscle Use, No Respiratory Distress, Decreased Breath Sounds Cardiovascular: Regular Rate, Rhythm, No Murmur Gastrointestinal: Non Tender, Soft Assessment/Plan Assessment and Plan COPD with acute exacerbation. Hypercapnia. Decreased appetite. Admission Diagnosis Admission Status: Inpatient Order (span 2 midnights) Reason for Inpatient Admission: Hypercapnia. COPD with acute exacerbation Clinical Quality Measures DVT/VTE Risk/Contraindication: Risk Factor Score Per Nursin RFS Level Per Nursing on Admit: 4+=Very High GUILHERME ACUAÑ DO Mar 07, 2018 07:35
[2018-03-07] MEDS: ENOXAPARIN 40 MG/0.4 ML (LOVENOX) SYR SC SCH (07:59)
[2018-03-07 08:00] VITALS: BP 121/62
--- NOTE | 2018-03-07 10:07 | Diagnostic Imaging Report ---
EXAMINATION: PA and lateral chest at 0855 hours. INDICATION: COPD. FINDINGS: The heart size is at the upper limits of normal but stable when compared to 03/06/2018. The chronic pulmonary changes seen on the prior study are again evident and no different. There is no sign of failure, pneumonia, or pleural effusion to indicate an acute abnormality. The mediastinum is not widened. The osseous structures are intact. IMPRESSION: There is chronic pulmonary disease but there is no sign of an acute cardiopulmonary abnormality. When compared to the prior study, there does not appear to have been any significant change. Dictated by: Dictated on workstation # [id number]
[2018-03-07 10:59] LABS: BILIRUBIN,URINE NEGATIVE (NEGATIVE); CLARITY,URINE CLEAR; COLOR,URINE YELLOW; GLUCOSE, URINE (UA) 4+ (NEGATIVE); KETONES,URINE NEGATIVE (NEGATIVE); LEUKOCYTE ESTERASE ,URINE NEGATIVE (NEGATIVE); NITRITE,URINE NEGATIVE (NEGATIVE); PH,URINE 6 (5-9); PROTEIN,URINE 2+ (NEGATIVE); UROBILINOGEN,URINE NORMAL (NORMAL)
[2018-03-07] MEDS ORDERED: BUDE10.2 IH (11:04)
[2018-03-07] MEDS ORDERED: NAPR220T66 PO (11:04)
[2018-03-07] MEDS ORDERED: IPRA4AER IH (11:04)
[2018-03-07] MEDS ORDERED: FLUT16SP22 NS (11:04)
[2018-03-07] MEDS ORDERED: TIOT4MIS5 IH (11:04)
[2018-03-07 11:17] LABS: BACTERIA,URINE NEGATIVE /HPF; HYALINE CASTS, URINE 0-2 /LPF; RBC,URINE 0-2 /HPF; SQUAMOUS EPITHELIAL CELL,UR RARE /HPF
[2018-03-07] MEDS: FUROSEMIDE 40 MG (LASIX) TAB PO SCH (12:04)
[2018-03-07] MEDS: LORATADINE (CLARITIN) 10 MG TAB PO SCH (12:04)
[2018-03-07] MEDS: PANTOPRAZOLE 40 MG (PROTONIX) TAB PO SCH (12:04)
--- NOTE | 2018-03-07 14:28 | Physician Query Clarification ---
PQ-Intro New Diagnosis Admission/Discharge Admission Date: Mar 06, 2018 at 13:02 Discharge Date: The medical record reflects the following clinical scenario: History/Risk Factors: COPD with exacerbation History of pneumonia Clinical Findings:Hypercarbia-02 sats 86% in ED triage then 02 sat of 60% on blood gases pH 7.32, PC02 94, PO2 41. Pulse 107, Resp 22, BP 143/80. Treatment: Nasal Cannula 2 to 4 L 02. Vapotherm Question: What condition best reflects the above clinical scenario? Please document below. 1. Acute Respiratory Failure with hypercarbia 2. Hypercarbia only. 3. Other, with explanation of the clinical findings. 4. Clinically undetermined, no explanation for the clinical findings. PHYSICIAN RESPONSE What condition reflects above: 2 In responding to this query, please exercise your independent professional judgment. The purpose of this communication is to more accurately reflect the complexity of your patients condition. The fact that a question is asked does not imply that any particular answer is desired or expected. Thank you for your timely response to this clarification. Requestors name: Joyce Basurto [facility] Phone # ext [phone] or [phone] THIS PHYSICIAN QUERY FORM IS A PERMANENT PART OF THE MEDICAL RECORD JOYCE BASURTO Mar 07, 2018 14:28 JULIAN ACUÑA DO Mar 08, 2018 07:15
[2018-03-07] MEDS: MILK OF MAGNESIA 400 MG/5 ML 30 ML UDC PO PRN (14:31)
[2018-03-07 16:00] VITALS: BP 138/64
[2018-03-07] MEDS: MONTELUKAST 10 MG (SINGULAIR) TAB PO SCH (20:30)
[2018-03-08] VITALS: BP 135/63
[2018-03-08] MEDS: RT-ALBUTEROL/IPRATROPIUM 3 ML (DUONEB) VIAL INH SCH ×6 (02:57→21:47)
[2018-03-08] MEDS: NS IV 1000 ML 1,000 ML IV SCH ×2 (03:03→14:09)
[2018-03-08] MEDS: methylPREDNISolone 125 MG (Solu-MEDROL) VIAL IV SCH (05:42)
[2018-03-08 06:06] LABS: HEMOGLOBIN 13.3 G/DL (13.3-17.7); MEAN PLATELET VOLUME 10.4 FL (7.4-10.4); RED BLOOD COUNT 4.26 10^6/uL (4.35-5.85); RED CELL DISTRIBUTION WIDTH 14.6 % (10.0-14.5); WHITE BLOOD COUNT 14.6 10^3/uL (4.3-11.0)
[2018-03-08 06:36] LABS: BUN/CREATININE RATIO 26; CALCIUM 9.2 MG/DL (8.5-10.1); CARBON DIOXIDE 34 MMOL/L (21-32); CHLORIDE 95 MMOL/L (98-107); CREATININE SERUM 0.78 MG/DL (0.60-1.30); GFR ESTIMATED > 60; GLUCOSE 162 MG/DL (70-105); POTASSIUM 4.7 MMOL/L (3.6-5.0); SODIUM 140 MMOL/L (135-145)
[2018-03-08] MEDS: ENOXAPARIN 40 MG/0.4 ML (LOVENOX) SYR SC SCH (07:10)
[2018-03-08] MEDS: UMECLIDINIUM BROMIDE (INCRUSE ELLIPTA) 7'S IH SCH (07:11)
[2018-03-08] MEDS: RT-ADVAIR HFA 115/21 MCG PER PUFF IH SCH ×2 (07:11→18:47)
[2018-03-08 08:00] VITALS: BP 127/68
--- NOTE | 2018-03-08 08:00 | Progress Note (SOAP) ---
Subjective Time Seen by a Provider: 07:56 Subjective/Events-last exam patient feeling 50 percent better.. Patient still on Vapotherm. Patient using his CPAP machine. Objective Exam Vital Signs Date Time Temp Pulse Resp B/P (MAP) Pulse Ox O2 Delivery O2 Flow Rate FiO2 03/08/18 07:08 92 Vapotherm 30.00 50 03/08/18 07:06 92 Mechanical Ventilator 30.00 50 03/08/18 02:58 92 Mechanical Ventilator 10.00 03/08/18 00:00 97.5 89 20 135/63 (87) 97 FI02 10.00 03/07/18 22:25 92 Vapotherm 30.00 50 03/07/18 20:20 92 Vapotherm 30.00 50 03/07/18 19:55 96 Vapotherm 30.00 50 03/07/18 19:40 95 Vapotherm 30.00 50 03/07/18 16:00 99.5 97 18 138/64 (88) 94 Vapotherm 03/07/18 15:03 94 Vapotherm 30.00 50 03/07/18 11:49 92 Vapotherm 50.00 30 03/07/18 08:00 95 Vapotherm 50.00 03/07/18 08:00 98.2 98 22 121/62 (81) 91 Vapotherm I & O 03/08/18 07:00 Intake Total 3090 ml Output Total 3475 ml Balance -385 ml Capillary Refill : NONELess Than 3 Seconds General Appearance: No Apparent Distress, WD/WN HEENT: Normal ENT Inspection Neck: Full Range of Motion, Normal Inspection Respiratory: No Accessory Muscle Use, No Respiratory Distress, Decreased Breath Sounds Cardiovascular: Regular Rate, Rhythm, No Murmur Gastrointestinal: non tender, soft Results Lab Laboratory Tests 03/08/18 05:30 Laboratory Tests 03/07/18 10:50: Urine Color YELLOW, Urine Clarity CLEAR, Urine pH 6, Urine Specific [place] 1.020, Urine Protein 2+H, Urine Glucose (UA) 4+H, Urine Ketones NEGATIVE, Urine Nitrite NEGATIVE, Urine Bilirubin NEGATIVE, Urine Urobilinogen NORMAL, Urine Leukocyte Esterase NEGATIVE, Urine RBC (Auto) 1+H, Urine RBC 0-2, Urine WBC NONE , Urine Squamous Epithelial Cells RARE, Urine Crystals NONE, Urine Bacteria NEGATIVE, Urine Casts PRESENT, Urine Hyaline Casts 0-2H, Urine Mucus MODERATEH, Urine Culture Indicated NO 03/08/18 05:30: White Blood Count 14.6H, Red Blood Count 4.26L, Hemoglobin 13.3, Hematocrit 42, Mean Corpuscular Volume 97, Mean Corpuscular Hemoglobin 31, Mean Corpuscular Hemoglobin Concent 32, Red Cell Distribution Width 14.6H, Platelet Count 279, Mean Platelet Volume 10.4, Sodium Level 140, Potassium Level 4.7, Chloride Level 95L, Carbon Dioxide Level 34H, Anion Gap 11, Blood Urea Nitrogen 20H, Creatinine 0.78, Estimat Glomerular Filtration Rate > 60, BUN/Creatinine Ratio 26, Glucose Level 162H, Calcium Level 9.2 Assessment/Plan Assessment/Plan Assess & Plan/Chief Complaint COPD with acute exacerbation. Hypercapnia. History of tobacco usage. Clinical Quality Measures Admission Status Admission Dx COPD with acute exacerbation. Hypercapnia. Decreased appetite. DVT/VTE Risk/Contraindication: Risk Factor Score Per Nursin RFS Level Per Nursing on Admit: 4+=Very High JULIAN ACUÑA DO Mar 08, 2018 08:00
[2018-03-08] MEDS: LORATADINE (CLARITIN) 10 MG TAB PO SCH (11:41)
[2018-03-08] MEDS: FUROSEMIDE 40 MG (LASIX) TAB PO SCH (11:41)
[2018-03-08] MEDS: PANTOPRAZOLE 40 MG (PROTONIX) TAB PO SCH (11:41)
[2018-03-08] MEDS: MILK OF MAGNESIA 400 MG/5 ML 30 ML UDC PO PRN (11:43)
[2018-03-08] MEDS: methylPREDNISolone 40 MG/ML (Solu-MEDROL) VIAL IV SCH ×3 (11:44→23:28)
[2018-03-08] MEDS ORDERED: methylPREDNISolone 125 MG (Solu-MEDROL) VIAL IV SCH (12:00)
[2018-03-08 15:45] VITALS: BP 135/74
[2018-03-08] MEDS ORDERED: ACETAMINOPHEN 500 MG TAB (TYLENOL) PO PRN (18:00)
[2018-03-08] MEDS: MONTELUKAST 10 MG (SINGULAIR) TAB PO SCH (20:30)
[2018-03-09 00:01] VITALS: BP 140/73
[2018-03-09] MEDS: RT-ALBUTEROL/IPRATROPIUM 3 ML (DUONEB) VIAL INH SCH ×6 (02:18→22:28)
[2018-03-09] MEDS: NS IV 1000 ML 1,000 ML IV SCH ×2 (02:38→15:17)
[2018-03-09] MEDS: methylPREDNISolone 40 MG/ML (Solu-MEDROL) VIAL IV SCH (06:31)
[2018-03-09 06:47] LABS: BASOPHILS % (AUTO) 0 % (0-10); EOSINOPHILS % (AUTO) 0 % (0-10); HEMATOCRIT 43 % (40-54); HEMOGLOBIN 13.4 G/DL (13.3-17.7); LYMPHOCYTES # (AUTO) 1.1 X 10^3 (1.0-4.0); LYMPHOCYTES % (AUTO) 9 % (12-44); MEAN CORPUSCULAR HEMOGLOBIN 31 PG (25-34); MEAN CORPUSCULAR HGB CONC 31 G/DL (32-36); MEAN CORPUSCULAR VOLUME 99 FL (80-99); MEAN PLATELET VOLUME 10.7 FL (7.4-10.4); MONOCYTES # (AUTO) 0.5 X 10^3 (0.0-1.0); MONOCYTES % (AUTO) 4 % (0-12); NEUTROPHILS # (AUTO) 10.1 X 10^3 (1.8-7.8); NEUTROPHILS % (AUTO) 87 % (42-75); PLATELET COUNT 265 10^3/uL (130-400); RED CELL DISTRIBUTION WIDTH 14.6 % (10.0-14.5); WHITE BLOOD COUNT 11.7 10^3/uL (4.3-11.0)
[2018-03-09] MEDS: UMECLIDINIUM BROMIDE (INCRUSE ELLIPTA) 7'S IH SCH (07:19)
[2018-03-09] MEDS: RT-ADVAIR HFA 115/21 MCG PER PUFF IH SCH ×2 (07:19→18:33)
[2018-03-09 07:31] LABS: BUN/CREATININE RATIO 29; CALCIUM 8.7 MG/DL (8.5-10.1); CARBON DIOXIDE 33 MMOL/L (21-32); CHLORIDE 96 MMOL/L (98-107); CREATININE SERUM 0.75 MG/DL (0.60-1.30); GFR ESTIMATED > 60; GLUCOSE 132 MG/DL (70-105); POTASSIUM 4.9 MMOL/L (3.6-5.0); SODIUM 139 MMOL/L (135-145)
[2018-03-09 07:32] LABS: BAND NEUTROPHILS 0 %; BASOPHILS % (MANUAL) 0 %; EOSINOPHILS % (MANUAL) 0 %; LYMPHOCYTES % (MANUAL) 5 %; MONOCYTES % (MANUAL) 2 %; NEUTROPHILS % (MANUAL) 86 %; REACTIVE LYMPHOCYTES 7 %
[2018-03-09] MEDS: ENOXAPARIN 40 MG/0.4 ML (LOVENOX) SYR SC SCH (07:50)
[2018-03-09] MEDS: MILK OF MAGNESIA 400 MG/5 ML 30 ML UDC PO PRN (07:58)
[2018-03-09 08:00] VITALS: BP 168/60
--- NOTE | 2018-03-09 08:06 | Progress Note (SOAP) ---
Subjective Time Seen by a Provider: 08:04 Subjective/Events-last exam Patient doing better today. Patient off Vapotherm. Patient on 4 L of nasal oxygen. Nurse to call at 11 a.m. for discharge of patient. To walk patient this morning. To send home on prednisone and albuterol vial Objective Exam Vital Signs Date Time Temp Pulse Resp B/P (MAP) Pulse Ox O2 Delivery O2 Flow Rate FiO2 03/09/18 07:19 96 Nasal Cannula 6.00 03/09/18 02:18 96 Nasal Cannula 7.00 03/09/18 00:01 98.7 90 16 140/73 (95) 96 High Flow N/C 7.00 03/08/18 21:47 98 Nasal Cannula 9.00 03/08/18 19:50 Nasal Cannula 9.00 03/08/18 18:47 93 Nasal Cannula 10.00 03/08/18 15:45 97.7 97 20 135/74 (94) 95 High Flow N/C 10.00 03/08/18 14:42 94 Vapotherm 30.00 50 03/08/18 10:16 91 Vapotherm 30.00 50 I & O 03/09/18 07:00 Intake Total 4530 ml Output Total 3250 ml Balance 1280 ml Capillary Refill : NONELess Than 3 Seconds General Appearance: No Apparent Distress, WD/WN HEENT: Normal ENT Inspection Neck: Full Range of Motion, Normal Inspection Respiratory: No Accessory Muscle Use, No Respiratory Distress, Decreased Breath Sounds Cardiovascular: Regular Rate, Rhythm Gastrointestinal: non tender, soft Results Lab Laboratory Tests 03/09/18 05:50 Laboratory Tests 03/09/18 05:50: White Blood Count 11.7H, Red Blood Count 4.30L, Hemoglobin 13.4, Hematocrit 43, Mean Corpuscular Volume 99, Mean Corpuscular Hemoglobin 31, Mean Corpuscular Hemoglobin Concent 31L, Red Cell Distribution Width 14.6H, Platelet Count 265, Mean Platelet Volume 10.7H, Neutrophils (%) (Auto) 87H, Lymphocytes (%) (Auto) 9L, Monocytes (%) (Auto) 4, Eosinophils (%) (Auto) 0, Basophils (%) (Auto) 0, Neutrophils # (Auto) 10.1H, Lymphocytes # (Auto) 1.1, Monocytes # (Auto) 0.5, Eosinophils # (Auto) 0.0, Basophils # (Auto) 0.0, Neutrophils % (Manual) 86, Lymphocytes % (Manual) 5, Monocytes % (Manual) 2, Eosinophils % (Manual) 0, Basophils % (Manual) 0, Band Neutrophils 0, Reactive Lymphocytes 7, Sodium Level 139, Potassium Level 4.9, Chloride Level 96L, Carbon Dioxide Level 33H, Anion Gap 10, Blood Urea Nitrogen 22H, Creatinine 0.75, Estimat Glomerular Filtration Rate > 60, BUN/Creatinine Ratio 29, Glucose Level 132H, Calcium Level 8.7 Assessment/Plan Assessment/Plan Assess & Plan/Chief Complaint COPD with acute exacerbation. Hypercapnia. History of tobacco usage. . 03/09/18. COPD with acute exacerbation. Hypercapnia. History of tobaccoism. Patient improved. Patient on nasal oxygen 4 L from Vapotherm. We'll walk patient today. Plan to discharge today Clinical Quality Measures Admission Status Admission Dx COPD with acute exacerbation. Hypercapnia. Decreased appetite. DVT/VTE Risk/Contraindication: Risk Factor Score Per Nursin RFS Level Per Nursing on Admit: 4+=Very High JULIAN ACUÑA DO Mar 09, 2018 08:06
[2018-03-09] MEDS ORDERED: PRED10TA22 PO (09:30)
[2018-03-09] MEDS: LORATADINE (CLARITIN) 10 MG TAB PO SCH (12:20)
[2018-03-09] MEDS: PANTOPRAZOLE 40 MG (PROTONIX) TAB PO SCH (12:20)
[2018-03-09] MEDS: FUROSEMIDE 40 MG (LASIX) TAB PO SCH (12:20)
[2018-03-09 14:31] VITALS: BP 168/60
[2018-03-09 16:00] VITALS: BP 167/94
[2018-03-09] MEDS ORDERED: ALBU2.5V4 IH (21:07)
[2018-03-09] MEDS: guaiFENesin (MUCINEX) 600 MG TAB PO SCH (22:37)
[2018-03-09] MEDS: MONTELUKAST 10 MG (SINGULAIR) TAB PO SCH (22:37)
[2018-03-09 23:59] VITALS: BP 145/75
[2018-03-10] MEDS: RT-ALBUTEROL/IPRATROPIUM 3 ML (DUONEB) VIAL INH SCH ×3 (02:37→10:22)
[2018-03-10] MEDS: NS IV 1000 ML 1,000 ML IV SCH (02:48)
[2018-03-10] MEDS: ENOXAPARIN 40 MG/0.4 ML (LOVENOX) SYR SC SCH (06:38)
[2018-03-10] MEDS: UMECLIDINIUM BROMIDE (INCRUSE ELLIPTA) 7'S IH SCH (06:54)
[2018-03-10] MEDS: RT-ADVAIR HFA 115/21 MCG PER PUFF IH SCH (06:54)
[2018-03-10] MEDS ORDERED: predniSONE 20 MG TAB PO SCH (07:00)
--- NOTE | 2018-03-10 07:50 | Progress Note (SOAP) ---
Subjective Time Seen by a Provider: 07:45 Subjective/Events-last exam Patient doing better today. Patient breathing better today. Patient to be discharged today. Patient feeling much better Objective Exam Vital Signs Date Time Temp Pulse Resp B/P (MAP) Pulse Ox O2 Delivery O2 Flow Rate FiO2 03/10/18 06:55 94 Nasal Cannula 4.00 03/10/18 02:38 94 NIV Bilevel 4.00 03/09/18 23:59 98.4 93 18 145/75 (98) 96 Nasal Cannula 4.00 03/09/18 22:30 95 Nasal Cannula 4.00 03/09/18 20:00 Nasal Cannula 4.00 03/09/18 18:34 93 Nasal Cannula 4.00 03/09/18 16:00 97.9 89 21 167/94 (118) 95 Nasal Cannula 4.00 03/09/18 14:35 94 Nasal Cannula 4.00 03/09/18 14:31 89 90 36 03/09/18 11:45 93 4.00 03/09/18 10:44 90 Nasal Cannula 4.00 03/09/18 08:00 97.7 89 20 168/60 (96) 94 High Flow N/C 4.00 03/09/18 08:00 Nasal Cannula 4.00 I & O 03/10/18 07:00 Intake Total 5480 ml Output Total 3126 ml Balance 2354 ml Capillary Refill : NONELess Than 3 Seconds General Appearance: No Apparent Distress, WD/WN HEENT: Normal ENT Inspection Neck: Full Range of Motion, Normal Inspection Respiratory: No Accessory Muscle Use, No Respiratory Distress, Decreased Breath Sounds Cardiovascular: Regular Rate, Rhythm, No Murmur Gastrointestinal: non tender, soft Assessment/Plan Assessment/Plan Assess & Plan/Chief Complaint COPD with acute exacerbation. Hypercapnia. History of tobacco usage. . 03/09/18. COPD with acute exacerbation. Hypercapnia. History of tobaccoism. Patient improved. Patient on nasal oxygen 4 L from [facility]ap[facility]. We'll walk patient today. Plan to discharge today. . 03/10/18. COPD with acute exacerbation resolved. Hypercapnia. History of tobaccoism. Patient walking today good with oxygen. Patient feeling better. Patient to be discharged today. Patient to come to the office Tuesday at 2 p.m. Clinical Quality Measures Admission Status Admission Dx COPD with acute exacerbation. Hypercapnia. Decreased appetite. DVT/VTE Risk/Contraindication: Risk Factor Score Per Nursin RFS Level Per Nursing on Admit: 4+=Very High JULIAN ACUÑA DO Mar 10, 2018 07:50
--- NOTE | 2018-03-10 07:54 | Discharge Inst-Simple/Standard ---
Discharge Inst-Standard Patient Instructions/Follow Up Plan of Care/Instructions/FU: To use pulmonate machine 4 times a day. 2 office next Tuesday at 2 p.m. To use CPAP machine at night Activity as Tolerated: Yes Discharge Diet: No Restrictions Planned Outpatient Orders/Ref. Pneu Vac Indicated: Yes JULIAN ACUÑA DO Mar 10, 2018 07:54
[2018-03-10 08:13] VITALS: BP 154/84
[2018-03-10] MEDS: guaiFENesin (MUCINEX) 600 MG TAB PO SCH (08:35)
[2018-03-10] MEDS: PANTOPRAZOLE 40 MG (PROTONIX) TAB PO SCH (11:07)
[2018-03-10] MEDS: LORATADINE (CLARITIN) 10 MG TAB PO SCH (11:08)
[2018-03-10] MEDS: FUROSEMIDE 40 MG (LASIX) TAB PO SCH (11:08)
[2018-03-10 11:40] VITALS: BP 154/84
--- NOTE | 2018-03-13 07:47 | Discharge Summary ---
Diagnosis/Chief Complaint Date of Admission Mar 06, 2018 at 13:02 Date of Discharge Mar 10, 2018 at 11:40 Discharge Date: Mar 10, 2018 Discharge Time: 07:45 Discharge Diagnosis COPD with acute exacerbation. Hypercapnia. Decreased appetite. Sleepiness. History of tobacco usage Reason Hospital Visit Patient has history of COPD the. Patient has been short of breath on exertion. Patient stopped using his CPAP one week ago. Patient stated 2 L of nasal oxygen at home gave him a pulse ox of over 90. In emergency room pulse ox was 82-85 on 2 L of nasal oxygen. Patient states he was sleeping all the time. Patient will get up and eat a little better and would go right back to sleep.. Patient stopped smoking 35 weeks ago area Patient states she's back her and wants to check for kidney infection. Previous surgery perforated small intestines and gallbladder Discharge Summary Discharge Physical Examination Allergies: Coded Allergies: No Known Drug Allergies (Unverified , 11/30/12) Vitals & I&Os Vital Signs Date Time Temp Pulse Resp B/P (MAP) Pulse Ox O2 Delivery O2 Flow Rate FiO2 03/10/18 11:40 91 22 154/84 95 Nasal Cannula 4.00 03/10/18 08:13 98.1 03/09/18 14:31 36 Hospital Course Patient improved and felt better and breathing better. Patient rated go home Labs (last 24 hrs) Laboratory Tests 03/06/18 12:11: Blood Gas Puncture Site LT RAD, Blood Gas Patient Temperature 98.0, Arterial Blood pH 7.32*L, Arterial Blood Partial Pressure CO2 94*H, Arterial Blood Partial Pressure O2 41L, Arterial Blood HCO3 48*H, Arterial Blood Total CO2 50.4H, Arterial Blood Oxygen Saturation 60L, Arterial Blood Base Excess 20.3H, Kerwin Test YES-POS, Blood Gas Ventilator Setting NO, Blood Gas Inspired Oxygen 4 03/06/18 12:24: White Blood Count 8.2, Red Blood Count 4.95, Hemoglobin 15.3, Hematocrit 49, Mean Corpuscular Volume 100H, Mean Corpuscular Hemoglobin 31, Mean Corpuscular Hemoglobin Concent 31L, Red Cell Distribution Width 14.3, Platelet Count 267, Mean Platelet Volume 9.8, Neutrophils (%) (Auto) 70, Lymphocytes (%) (Auto) 19, Monocytes (%) (Auto) 8, Eosinophils (%) (Auto) 2, Basophils (%) (Auto) 1, Neutrophils # (Auto) 5.7, Lymphocytes # (Auto) 1.6, Monocytes # (Auto) 0.7, Eosinophils # (Auto) 0.2, Basophils # (Auto) 0.1, Sodium Level 138, Potassium Level 4.3, Chloride Level 89L, Carbon Dioxide Level 41H, Anion Gap 8, Blood Urea Nitrogen 13, Creatinine 0.74, Estimat Glomerular Filtration Rate > 60, BUN/ Creatinine Ratio 18, Glucose Level 117H, Calcium Level 9.3, Corrected Calcium 9.1, Total Bilirubin 0.4, Aspartate Amino Transf (AST/SGOT) 13, Alanine Aminotransferase (ALT/SGPT) 15, Alkaline Phosphatase 74, Troponin I < 0.30, B- Type Natriuretic Peptide 18.3, Total Protein 7.1, Albumin 4.2 03/06/18 12:40: Blood Gas Puncture Site LT RAD, Blood Gas Patient Temperature 98.5, Arterial Blood pH 7.35L, Arterial Blood Partial Pressure CO2 87*H, Arterial Blood Partial Pressure O2 72L, Arterial Blood HCO3 47*H, Arterial Blood Total CO2 49.2H, Arterial Blood Oxygen Saturation 94, Arterial Blood Base Excess 19.7H, Kerwin Test YES-POS, Blood Gas Ventilator Setting NO, Blood Gas Inspired Oxygen 4L 03/07/18 02:20: Blood Gas Puncture Site R RADIAL, Blood Gas Patient Temperature 96.2, Arterial Blood pH 7.33*L, Arterial Blood Partial Pressure CO2 80*H, Arterial Blood Partial Pressure O2 56L, Arterial Blood HCO3 42*H, Arterial Blood Total CO2 44.4H, Arterial Blood Oxygen Saturation 88L, Arterial Blood Base Excess 15.0H, Kerwin Test POSITIVE, Blood Gas Ventilator Setting NO, Blood Gas Inspired Oxygen 10 03/07/18 06:04: White Blood Count 9.0, Red Blood Count 4.92, Hemoglobin 14.8, Hematocrit 49, Mean Corpuscular Volume 100H, Mean Corpuscular Hemoglobin 30, Mean Corpuscular Hemoglobin Concent 30L, Red Cell Distribution Width 14.3, Platelet Count 268, Mean Platelet Volume 10.6H, Neutrophils (%) (Auto) 88H, Lymphocytes (%) (Auto) 10L, Monocytes (%) (Auto) 2, Eosinophils (%) (Auto) 0, Basophils (%) (Auto) 0, Neutrophils # (Auto) 8.0H, Lymphocytes # (Auto) 0.9L, Monocytes # (Auto) 0.2, Eosinophils # (Auto) 0.0, Basophils # (Auto) 0.0, Sodium Level 142, Potassium Level 4.4, Chloride Level 95L, Carbon Dioxide Level 37H, Anion Gap 10, Blood Urea Nitrogen 13, Creatinine 0.78, Estimat Glomerular Filtration Rate > 60, BUN/ Creatinine Ratio 17, Glucose Level 159H, Calcium Level 9.5, Corrected Calcium 9.3, Total Bilirubin 0.3, Aspartate Amino Transf (AST/SGOT) 10, Alanine Aminotransferase (ALT/SGPT) 14, Alkaline Phosphatase 74, Total Protein 7.1, Albumin 4.2 03/07/18 10:50: Urine Color YELLOW, Urine Clarity CLEAR, Urine pH 6, Urine Specific Laie 1.020, Urine Protein 2+H, Urine Glucose (UA) 4+H, Urine Ketones NEGATIVE, Urine Nitrite NEGATIVE, Urine Bilirubin NEGATIVE, Urine Urobilinogen NORMAL, Urine Leukocyte Esterase NEGATIVE, Urine RBC (Auto) 1+H, Urine RBC 0-2, Urine WBC NONE , Urine Squamous Epithelial Cells RARE, Urine Crystals NONE, Urine Bacteria NEGATIVE, Urine Casts PRESENT, Urine Hyaline Casts 0-2H, Urine Mucus MODERATEH, Urine Culture Indicated NO 03/08/18 05:30: White Blood Count 14.6H, Red Blood Count 4.26L, Hemoglobin 13.3, Hematocrit 42, Mean Corpuscular Volume 97, Mean Corpuscular Hemoglobin 31, Mean Corpuscular Hemoglobin Concent 32, Red Cell Distribution Width 14.6H, Platelet Count 279, Mean Platelet Volume 10.4, Sodium Level 140, Potassium Level 4.7, Chloride Level 95L, Carbon Dioxide Level 34H, Anion Gap 11, Blood Urea Nitrogen 20H, Creatinine 0.78, Estimat Glomerular Filtration Rate > 60, BUN/Creatinine Ratio 26, Glucose Level 162H, Calcium Level 9.2 03/09/18 05:50: White Blood Count 11.7H, Red Blood Count 4.30L, Hemoglobin 13.4, Hematocrit 43, Mean Corpuscular Volume 99, Mean Corpuscular Hemoglobin 31, Mean Corpuscular Hemoglobin Concent 31L, Red Cell Distribution Width 14.6H, Platelet Count 265, Mean Platelet Volume 10.7H, Neutrophils (%) (Auto) 87H, Lymphocytes (%) (Auto) 9L, Monocytes (%) (Auto) 4, Eosinophils (%) (Auto) 0, Basophils (%) (Auto) 0, Neutrophils # (Auto) 10.1H, Lymphocytes # (Auto) 1.1, Monocytes # (Auto) 0.5, Eosinophils # (Auto) 0.0, Basophils # (Auto) 0.0, Sodium Level 139, Potassium Level 4.9, Chloride Level 96L, Carbon Dioxide Level 33H, Anion Gap 10, Blood Urea Nitrogen 22H, Creatinine 0.75, Estimat Glomerular Filtration Rate > 60, BUN /Creatinine Ratio 29, Glucose Level 132H, Calcium Level 8.7, Neutrophils % ( Manual) 86, Lymphocytes % (Manual) 5, Monocytes % (Manual) 2, Eosinophils % ( Manual) 0, Basophils % (Manual) 0, Band Neutrophils 0, Reactive Lymphocytes 7 Laboratory Tests 03/06/18 12:24 03/07/18 06:04 03/08/18 05:30 03/09/18 05:50 Pending Labs Laboratory Tests 03/06/18 12:11: Blood Gas Puncture Site LT RAD, Blood Gas Patient Temperature 98.0, Arterial Blood pH 7.32, Arterial Blood Partial Pressure CO2 94, Arterial Blood Partial Pressure O2 41, Arterial Blood HCO3 48, Arterial Blood Total CO2 50.4, Arterial Blood Oxygen Saturation 60, Arterial Blood Base Excess 20.3, Kerwin Test YES-POS , Blood Gas Ventilator Setting NO, Blood Gas Inspired Oxygen 4 03/06/18 12:24: White Blood Count 8.2, Red Blood Count 4.95, Hemoglobin 15.3, Hematocrit 49, Mean Corpuscular Volume 100, Mean Corpuscular Hemoglobin 31, Mean Corpuscular Hemoglobin Concent 31, Red Cell Distribution Width 14.3, Platelet Count 267, Mean Platelet Volume 9.8, Neutrophils (%) (Auto) 70, Lymphocytes (%) (Auto) 19, Monocytes (%) (Auto) 8, Eosinophils (%) (Auto) 2, Basophils (%) (Auto) 1, Neutrophils # (Auto) 5.7, Lymphocytes # (Auto) 1.6, Monocytes # (Auto) 0.7, Eosinophils # (Auto) 0.2, Basophils # (Auto) 0.1, Sodium Level 138, Potassium Level 4.3, Chloride Level 89, Carbon Dioxide Level 41, Anion Gap 8, Blood Urea Nitrogen 13, Creatinine 0.74, Estimat Glomerular Filtration Rate > 60, BUN/ Creatinine Ratio 18, Glucose Level 117, Calcium Level 9.3, Corrected Calcium 9.1 , Total Bilirubin 0.4, Aspartate Amino Transf (AST/SGOT) 13, Alanine Aminotransferase (ALT/SGPT) 15, Alkaline Phosphatase 74, Troponin I < 0.30, B- Type Natriuretic Peptide 18.3, Total Protein 7.1, Albumin 4.2 03/06/18 12:40: Blood Gas Puncture Site LT RAD, Blood Gas Patient Temperature 98.5, Arterial Blood pH 7.35, Arterial Blood Partial Pressure CO2 87, Arterial Blood Partial Pressure O2 72, Arterial Blood HCO3 47, Arterial Blood Total CO2 49.2, Arterial Blood Oxygen Saturation 94, Arterial Blood Base Excess 19.7, Kerwin Test YES-POS , Blood Gas Ventilator Setting NO, Blood Gas Inspired Oxygen 4L 03/07/18 02:20: Blood Gas Puncture Site R RADIAL, Blood Gas Patient Temperature 96.2, Arterial Blood pH 7.33, Arterial Blood Partial Pressure CO2 80, Arterial Blood Partial Pressure O2 56, Arterial Blood HCO3 42, Arterial Blood Total CO2 44.4, Arterial Blood Oxygen Saturation 88, Arterial Blood Base Excess 15.0, Kerwin Test POSITIVE , Blood Gas Ventilator Setting NO, Blood Gas Inspired Oxygen 10 03/07/18 06:04: White Blood Count 9.0, Red Blood Count 4.92, Hemoglobin 14.8, Hematocrit 49, Mean Corpuscular Volume 100, Mean Corpuscular Hemoglobin 30, Mean Corpuscular Hemoglobin Concent 30, Red Cell Distribution Width 14.3, Platelet Count 268, Mean Platelet Volume 10.6, Neutrophils (%) (Auto) 88, Lymphocytes (%) (Auto) 10 , Monocytes (%) (Auto) 2, Eosinophils (%) (Auto) 0, Basophils (%) (Auto) 0, Neutrophils # (Auto) 8.0, Lymphocytes # (Auto) 0.9, Monocytes # (Auto) 0.2, Eosinophils # (Auto) 0.0, Basophils # (Auto) 0.0, Sodium Level 142, Potassium Level 4.4, Chloride Level 95, Carbon Dioxide Level 37, Anion Gap 10, Blood Urea Nitrogen 13, Creatinine 0.78, Estimat Glomerular Filtration Rate > 60, BUN/ Creatinine Ratio 17, Glucose Level 159, Calcium Level 9.5, Corrected Calcium 9.3 , Total Bilirubin 0.3, Aspartate Amino Transf (AST/SGOT) 10, Alanine Aminotransferase (ALT/SGPT) 14, Alkaline Phosphatase 74, Total Protein 7.1, Albumin 4.2 03/07/18 10:50: Urine Color YELLOW, Urine Clarity CLEAR, Urine pH 6, Urine Specific Laie 1.020, Urine Protein 2+, Urine Glucose (UA) 4+, Urine Ketones NEGATIVE, Urine Nitrite NEGATIVE, Urine Bilirubin NEGATIVE, Urine Urobilinogen NORMAL, Urine Leukocyte Esterase NEGATIVE, Urine RBC (Auto) 1+, Urine RBC 0-2, Urine WBC NONE , Urine Squamous Epithelial Cells RARE, Urine Crystals NONE, Urine Bacteria NEGATIVE, Urine Casts PRESENT, Urine Hyaline Casts 0-2, Urine Mucus MODERATE, Urine Culture Indicated NO 03/08/18 05:30: White Blood Count 14.6, Red Blood Count 4.26, Hemoglobin 13.3, Hematocrit 42, Mean Corpuscular Volume 97, Mean Corpuscular Hemoglobin 31, Mean Corpuscular Hemoglobin Concent 32, Red Cell Distribution Width 14.6, Platelet Count 279, Mean Platelet Volume 10.4, Sodium Level 140, Potassium Level 4.7, Chloride Level 95, Carbon Dioxide Level 34, Anion Gap 11, Blood Urea Nitrogen 20, Creatinine 0.78, Estimat Glomerular Filtration Rate > 60, BUN/Creatinine Ratio 26, Glucose Level 162, Calcium Level 9.2 03/09/18 05:50: White Blood Count 11.7, Red Blood Count 4.30, Hemoglobin 13.4, Hematocrit 43, Mean Corpuscular Volume 99, Mean Corpuscular Hemoglobin 31, Mean Corpuscular Hemoglobin Concent 31, Red Cell Distribution Width 14.6, Platelet Count 265, Mean Platelet Volume 10.7, Neutrophils (%) (Auto) 87, Lymphocytes (%) (Auto) 9, Monocytes (%) (Auto) 4, Eosinophils (%) (Auto) 0, Basophils (%) (Auto) 0, Neutrophils # (Auto) 10.1, Lymphocytes # (Auto) 1.1, Monocytes # (Auto) 0.5, Eosinophils # (Auto) 0.0, Basophils # (Auto) 0.0, Sodium Level 139, Potassium Level 4.9, Chloride Level 96, Carbon Dioxide Level 33, Anion Gap 10, Blood Urea Nitrogen 22, Creatinine 0.75, Estimat Glomerular Filtration Rate > 60, BUN/ Creatinine Ratio 29, Glucose Level 132, Calcium Level 8.7, Neutrophils % (Manual ) 86, Lymphocytes % (Manual) 5, Monocytes % (Manual) 2, Eosinophils % (Manual) 0 , Basophils % (Manual) 0, Band Neutrophils 0, Reactive Lymphocytes 7 Discharge Home Medications: Active Scripts Active Albuterol Sulfate 2.5 Mg/3 Ml Vial.neb 2.5 Mg IH QID 30 Days Prednisone 10 Mg Tab.ds.pk 10 Mg PO DAILY Take 4 tabs (40mg) daily, decrease by 1 tab (10mg) daily. Reported Spiriva Respimat 1.25MCG/ACTUATION (Tiotropium [place]) 4 Gm Mist.inhal 2 Puff IH DAILY Symbicort 160-4.5 Mcg Inhaler (Budesonide/Formoterol Fumarate) 10.2 Gm Hfa.aer.ad 2 Puff IH BID Fluticasone Propionate 16 Gm [place].susp 2 [place] NS DAILY PRN Aleve (Naproxen Sodium) 220 Mg Tablet 220-440 Mg PO Q8H PRN Ventolin Hfa (Albuterol Sulfate) 18 Gm Hfa.aer.ad 2 Puff IH Q6H PRN Cetirizine HCl 10 Mg Tablet 10 Mg PO DAILY Montelukast Sodium 10 Mg Tablet 10 Mg PO HS Pantoprazole Sodium 40 Mg Tablet.dr 40 Mg PO DAILY Furosemide 40 Mg Tablet 40 Mg PO DAILY Instructions to patient/family Please see electronic discharge instructions given to patient. Clinical Quality Measures DVT/VTE Risk/Contraindication: Risk Factor Score Per Nursin RFS Level Per Nursing on Admit: 4+=Very High JULIAN ACUÑA DO Mar 13, 2018 07:47
== END 2018-03-10 11:40 | disposition home or self-care (01) | DRG 192 ==
LOC: EDUNIT# 11:44 → ER 11:46 → 4TH 13:02
PROVIDERS: ADMIT Family Medicine; ATTEND Family Medicine
DX: J44.1 Chronic obstructive pulmonary disease with (acute) exacerbation (principal); R06.89 Other abnormalities of breathing; I10 Essential (primary) hypertension; K21.9 Gastro-esophageal reflux disease without esophagitis; R63.0 Anorexia; L40.9 Psoriasis, unspecified; M19.91 Primary osteoarthritis, unspecified site; Z87.891 Personal history of nicotine dependence; Z99.81 Dependence on supplemental oxygen; Z87.11 Personal history of peptic ulcer disease; Z87.01 Personal history of pneumonia (recurrent)
CPT/HCPCS: 36415; 36600; 71045; 71046; 80048; 80053; 81000; 82805; 83880; 84484; 85007; 85025; 85027; 94640; 94760; 94761; 96374

== ENCOUNTER 2020-06-01 16:12 | Inpatient (IN) | payer BC, OTHER ==
[~2020-06-01] VITALS: Ht 177.8 cm; Wt 151.2 kg
[~2020-06-01 16:12] MED LIST changes: +ALBU2.5V4 IH; +BUDE10.2 IH; +FLUT16SP22 NS; -MONT10TA24 PO; +MONT10TA97 PO; -PANT40TA3 PO; +PANT40TA52 PO; +TIOT4MIS5 IH
[2020-06-01] MEDS ORDERED: fentaNYL INJECTION 100 MCG/2 ML AMP ONE (16:17)
[2020-06-01] MEDS ORDERED: RT-ALBUTEROL/IPRATROPIUM 3 ML (DUONEB) VIAL ONE (16:17)
[2020-06-01] MEDS ORDERED: RT-ALBUTEROL/IPRATROPIUM 3 ML (DUONEB) VIAL INH ONE (16:30)
[2020-06-01] MEDS ORDERED: fentaNYL INJECTION 100 MCG/2 ML AMP IVP ONE ×6 (16:30→20:15)
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
[2020-06-01] MEDS ORDERED: NS 100 ML (IVPB) BAG IV ONE (17:30)
[2020-06-01] MEDS ORDERED: HOLD METFORMIN - RECEIVED CONTRAST 20 ML VIAL IV SCH (17:30)
[2020-06-01] MEDS ORDERED: IOHEXOL 350 MG/ML 100 ML (OMNIPAQUE 350) VIAL IV ONE (17:30)
[2020-06-01 17:32] LABS: CHLORIDE 98 MMOL/L (98-107); POTASSIUM 5.1 MMOL/L (3.6-5.0); SODIUM 140 MMOL/L (135-145)
[2020-06-01 17:33] LABS: CALCIUM 9.2 MG/DL (8.5-10.1); GLUCOSE 200 MG/DL (70-105)
[2020-06-01 17:35] LABS: CARBON DIOXIDE 29 MMOL/L (21-32)
[2020-06-01 17:37] LABS: CREATININE SERUM 0.93 MG/DL (0.60-1.30); GFR ESTIMATED > 60
[2020-06-01 17:38] LABS: BUN/CREATININE RATIO 18
[2020-06-01] MEDS ORDERED: NS IV 1000 ML 1,000 ML IV SCH (18:45)
--- NOTE | 2020-06-01 18:51 | Diagnostic Imaging Report ---
PROCEDURE: CT chest with contrast only. TECHNIQUE: Multiple contiguous axial images were obtained through the chest after administration of intravenous contrast. Auto Exposure Controls were utilized during the CT exam to meet ALARA standards for radiation dose reduction. INDICATION: Left rib pain. FINDINGS: The plain film examination of the chest performed prior to this study at 4:48 p.m. suggested pleural thickening and raised the question of a rib fracture on the left. On this study there are displaced fractures of the left 5th through 10th ribs. The fractures of the left 5th and 6th ribs are severely comminuted and there does appear to be a small amount of hemorrhage and fluid about the fracture sites. There also appears to be a trace pneumothorax in the region of the rib fractures. A small hemorrhagic fluid collection is also seen in the left lung base. In addition, there is some atelectasis/infiltrate and/or contusion involving the left lower lobe. The right lung also shows a small patchy alveolar/interstitial infiltrate along the periphery of the right upper lung. The heart size is within normal limits and stable when compared to the prior CTA chest exam of 11/15/2017. Coronary artery calcifications are noted. The aorta is not abnormality dilated and there is no sign of a dissection. The pulmonary arteries were not fully opacified and consequently difficult to assess. There is no definite defect within the pulmonary arteries to indicate a pulmonary embolus. There is no mediastinal or hilar adenopathy. The thyroid gland was not well-visualized. There is bilateral gynecomastia. The sections through the upper abdomen do show distortion of the perinephric fat on the left. This may be due to a recent injury to the left kidney. CT of the abdomen and pelvis is pending for further study. IMPRESSION: 1. There are displaced fractures of the left 5th through 10th ribs. There is a small amount of fluid/hemorrhage about the fractures of the 5th and 6th ribs as well as a trace pneumothorax in this area. A small hemorrhagic fluid collection and/or atelectasis/infiltrate/contusion is also seen in the left lung base. 2. There is mild right upper lobe pneumonia/atelectasis. 3. There is no acute cardiopulmonary abnormality noted otherwise. 4. CT of the abdomen and pelvis is pending for further evaluation of the suspected injury to the left kidney. Dictated by: Dictated on workstation # [id number]
--- NOTE | 2020-06-01 18:55 | Diagnostic Imaging Report ---
PROCEDURE: CT abdomen and pelvis without contrast. TECHNIQUE: Multiple contiguous axial images were obtained through the abdomen and pelvis without the use of intravenous contrast. Auto Exposure Controls were utilized during the CT exam to meet ALARA standards for radiation dose reduction. INDICATION: Trauma. COMPARISON: There is no prior CT abdomen/pelvis exam available for comparison. FINDINGS: The CT chest exam performed in conjunction with this study did show distortion of the perinephric fat about the superior pole of the left kidney. That finding is again evident on this study. Most likely this is due to edema/inflammation and hemorrhage. There is no active hemorrhage identified in both kidneys do show excretion of the contrast. The liver is homogeneous and enlarged. The liver is of lower density than usually seen and this does suggest fatty metamorphosis. The spleen, pancreas, right adrenal gland, gallbladder, aorta and inferior vena cava show no sign of an acute abnormality. The left adrenal gland seems to be unremarkable although it is partially obscured by the edema, inflammation and hemorrhage related to the injury to the left kidney. The stomach is filled with gas and fluid and difficult to assess. There is a defect in the anterior abdominal wall in the region of the umbilicus. Portions of the small bowel extend through this defect but there is no obstruction of the bowel. There is no pelvic mass or free fluid collection noted. The appendix was not well-visualized. The urinary bladder and prostate gland are grossly unremarkable. The bone windows show no sign of a fracture or of a destructive lesion. The displaced left-sided rib fracture seen previously on the CT chest exam are partially visualized on this exam. IMPRESSION: 1. There is distortion of the mesenteric fat along the superior pole of the left kidney. Most likely is due to edema, inflammation and hemorrhage from recent renal contusion (grade 1). There is no active bleeding identified and the left kidney appears to function well. 2. There is no acute abnormality of the abdomen or pelvis noted otherwise. 3. These results were discussed with Dr. Murdock in the Emergency Room. Dictated by: Dictated on workstation # [id number]
[2020-06-01 18:57] LABS: CLARITY,URINE SL CLOUDY; COLOR,URINE YELLOW; GLUCOSE, URINE (UA) NEGATIVE (NEGATIVE); KETONES,URINE NEGATIVE (NEGATIVE); LEUKOCYTE ESTERASE ,URINE NEGATIVE (NEGATIVE); NITRITE,URINE NEGATIVE (NEGATIVE); PROTEIN,URINE 2+ (NEGATIVE)
[2020-06-01 19:00] LABS: BASOPHILS # (AUTO) 0.1 10^3/uL (0.0-0.1); BASOPHILS % (AUTO) 1 % (0-10); EOSINOPHILS # (AUTO) 0.2 10^3/uL (0.0-0.3); EOSINOPHILS % (AUTO) 2 % (0-10); HEMATOCRIT 42 % (40-54); HEMOGLOBIN 13.5 g/dL (13.3-17.7); LYMPHOCYTES # (AUTO) 2.9 10^3/uL (1.0-4.0); LYMPHOCYTES % (AUTO) 20 % (12-44); MEAN CORPUSCULAR HEMOGLOBIN 31 pg (25-34); MEAN CORPUSCULAR HGB CONC 32 g/dL (32-36); MEAN CORPUSCULAR VOLUME 97 fL (80-99); MEAN PLATELET VOLUME 11.1 fL (9.0-12.2); MONOCYTES # (AUTO) 0.8 10^3/uL (0.0-1.0); MONOCYTES % (AUTO) 6 % (0-12); NEUTROPHILS # (AUTO) 10.1 10^3/uL (1.8-7.8); NEUTROPHILS % (AUTO) 71 % (42-75); PLATELET COUNT 372 10^3/uL (130-400); WHITE BLOOD COUNT 14.2 10^3/uL (4.3-11.0)
[2020-06-01 19:02] LABS: BILIRUBIN,URINE 1+ (NEGATIVE)
[2020-06-01 19:02] LABS: ALBUMIN 4.5 GM/DL (3.2-4.5); CHLORIDE 98 MMOL/L (98-107); POTASSIUM 5.1 MMOL/L (3.6-5.0); SODIUM 140 MMOL/L (135-145)
[2020-06-01 19:03] LABS: CALCIUM 9.3 MG/DL (8.5-10.1)
[2020-06-01 19:04] LABS: GLUCOSE 203 MG/DL (70-105); TOTAL PROTEIN 8.1 GM/DL (6.4-8.2)
[2020-06-01 19:05] LABS: CARBON DIOXIDE 27 MMOL/L (21-32)
[2020-06-01 19:05] LABS: BACTERIA,URINE TRACE /HPF; HYALINE CASTS, URINE 0-2 /LPF; RBC,URINE >100 /HPF
[2020-06-01 19:06] LABS: BILIRUBIN,TOTAL 0.4 MG/DL (0.1-1.0); INR 0.9 (0.8-1.4); PROTHROMBIN TIME PATIENT 12.7 SEC (12.2-14.7)
[2020-06-01 19:08] LABS: ALKALINE PHOSPHATASE 80 U/L (40-136); CREATININE SERUM 0.96 MG/DL (0.60-1.30); GFR ESTIMATED > 60
[2020-06-01 19:09] LABS: BUN/CREATININE RATIO 19
[2020-06-01 19:11] LABS: ALANINE AMINOTRANSFERASE 28 U/L (0-55)
[2020-06-01 19:13] LABS: AMPHETAMINE SCREEN, URINE NEGATIVE (NEGATIVE); BARBITURATE SCREEN URINE NEGATIVE (NEGATIVE); BENZODIAZEPINES SCREEN URINE NEGATIVE (NEGATIVE); CANNABINOID SCREEN, URINE POSITIVE (NEGATIVE); COCAINE SCREEN URINE NEGATIVE (NEGATIVE); METHADONE STAT NEGATIVE (NEGATIVE); METHAMPHETAMINE SCREEN URINE S NEGATIVE (NEGATIVE); OPIATE SCREEN URINE NEGATIVE (NEGATIVE); OXYCODONE STAT NEGATIVE (NEGATIVE); PROPOXYPHENE STAT NEGATIVE (NEGATIVE); TRICYCLIC ANTIDEPRESSANTS SCRE NEGATIVE (NEGATIVE)
--- NOTE | 2020-06-01 19:15 | NUR ---
ASSUMED CARE OF THIS PATIENT AT THIS TIME. REPORT FROM [facility]. TO ROOM TO INTRODUCE SELF. CALL LIGHT IN REACH PATIENT IS ORIENTED TO ITS USE. MONITORING MAINTAINED. TO BE ADMITTED TO ICU.
[2020-06-01] MEDS ORDERED: lisINopril 10 MG (PRINIVIL) TABLET PO ONE (19:30)
[2020-06-01] MEDS ORDERED: 1/2 NS IV SOLUTION 1,000 ML IV ONE (21:00)
[2020-06-01] MEDS: 1/2 NS IV SOLUTION 1,000 ML IV SCH (21:19)
[2020-06-01 21:42] VITALS: BP 202/95
[2020-06-01] MEDS ORDERED: RT-ALBUTEROL SULF 2.5 MG/3 ML PRE-MIX VIAL INH PRN (22:00)
[2020-06-01] MEDS: fentaNYL INJECTION 100 MCG/2 ML AMP IV PRN (23:03)
[2020-06-02] MEDS: fentaNYL INJECTION 100 MCG/2 ML AMP IV PRN ×6 (01:43→23:40)
[2020-06-02 03:19] LABS: BASOPHILS % (AUTO) 0 % (0-10); EOSINOPHILS % (AUTO) 0 % (0-10); HEMATOCRIT 38 % (40-54); HEMOGLOBIN 12.3 g/dL (13.3-17.7); LYMPHOCYTES # (AUTO) 1.4 10^3/uL (1.0-4.0); LYMPHOCYTES % (AUTO) 10 % (12-44); MEAN CORPUSCULAR HEMOGLOBIN 31 pg (25-34); MEAN CORPUSCULAR HGB CONC 32 g/dL (32-36); MEAN CORPUSCULAR VOLUME 97 fL (80-99); MEAN PLATELET VOLUME 10.6 fL (9.0-12.2); MONOCYTES # (AUTO) 0.8 10^3/uL (0.0-1.0); MONOCYTES % (AUTO) 6 % (0-12); NEUTROPHILS # (AUTO) 11.2 10^3/uL (1.8-7.8); NEUTROPHILS % (AUTO) 83 % (42-75); PLATELET COUNT 320 10^3/uL (130-400); WHITE BLOOD COUNT 13.6 10^3/uL (4.3-11.0)
[2020-06-02 03:36] LABS: ALBUMIN 4.2 GM/DL (3.2-4.5); CHLORIDE 99 MMOL/L (98-107); POTASSIUM 4.5 MMOL/L (3.6-5.0); SODIUM 138 MMOL/L (135-145)
[2020-06-02 03:37] LABS: CALCIUM 8.9 MG/DL (8.5-10.1)
[2020-06-02 03:39] LABS: GLUCOSE 191 MG/DL (70-105); TOTAL PROTEIN 7.3 GM/DL (6.4-8.2)
[2020-06-02 03:40] LABS: BILIRUBIN,TOTAL 0.6 MG/DL (0.1-1.0); CARBON DIOXIDE 27 MMOL/L (21-32)
[2020-06-02 03:42] LABS: ALKALINE PHOSPHATASE 66 U/L (40-136); CREATININE SERUM 0.82 MG/DL (0.60-1.30); GFR ESTIMATED > 60; PHOSPHORUS 3.1 MG/DL (2.3-4.7)
[2020-06-02 03:43] LABS: BUN/CREATININE RATIO 20
[2020-06-02 03:45] LABS: ALANINE AMINOTRANSFERASE 27 U/L (0-55); MAGNESIUM 1.7 MG/DL (1.6-2.4)
[2020-06-02] MEDS: 1/2 NS IV SOLUTION 1,000 ML IV SCH ×3 (05:13→22:20)
[2020-06-02] MEDS: POTASSIUM CL 10MEQ/50ML IVPB 50 ML IV SCH (05:13)
[2020-06-02] MEDS: MAGNESIUM 1 GM/100 ML IVPB 100 ML IV SCH (05:14)
[2020-06-02] MEDS: KCL 20 MEQ TAB (K-DUR) PO SCH (05:14)
[2020-06-02] MEDS: inSUlin ASPART (NovoLOG) 1 UNIT/0.01 ML (CHARGE PER UNIT) SC SCH ×4 (05:14→20:28)
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
--- NOTE | 2020-06-02 07:32 | Diagnostic Imaging Report ---
INDICATION: Trauma. COMPARISON: CT chest dated 06/01/2020 FINDINGS: Single frontal radiograph view of the chest was obtained. Cardiac silhouette is enlarged, but this has shown to be on the basis of prominent pericardial fat on recent CT chest. Pulmonary vasculature is within normal limits. Left hemidiaphragm is obscured by left basilar opacification. There is minimal focal opacity within the lateral right midlung, which may be on the basis of juxtapleural atelectasis. There is no large effusion on the right. No pneumothorax is seen on either side. Osseous structures are stable. Multiple left-sided rib fractures are again noted. IMPRESSION: 1. Left hemidiaphragm remains obscured. This likely relates to left basilar effusion and atelectasis seen on recent CT chest. 2. Redemonstration multiple left-sided rib fractures. Dictated by: Dictated on workstation # [id number]
[2020-06-02] MEDS: RT-ALBUTEROL SULF 2.5 MG/3 ML PRE-MIX VIAL INH SCH ×4 (08:08→18:48)
[2020-06-02] MEDS ORDERED: TIOT4MIS2 IH (14:56)
[2020-06-02] MEDS ORDERED: ACET-2267 PO (14:56)
[2020-06-02] MEDS ORDERED: DOCU100T7 PO (14:56)
[2020-06-02] MEDS ORDERED: FLUT1BLS15 IH (14:56)
[2020-06-02] MEDS ORDERED: ALB0.5V INH (14:56)
[2020-06-02] MEDS ORDERED: METF-397 PO (14:56)
[2020-06-02] MEDS ORDERED: ROSU10TA28 PO (14:56)
[2020-06-02] MEDS ORDERED: LISI10TA2 PO (14:56)
--- NOTE | 2020-06-02 14:58 | NUR ---
SPOKE WITH THE PT, WENT THRU THE EXT MED HISTORY AND CALLED [facility] OFFICE TO COMPLETE THE MED REC PT GETS SPIRIVA RESPIMAT 2.5 AND TRELEGY [address] ACUÑA LISINOPRIL 10MG- DIRECTIONS SHOW 1 TAB DAILY HOWEVER PT SAYS HE IS TAKING 1 TAB EVERY 48 HOURS OTC MEDS: ZYRTEC TYLENOL STOOL SOFTENER
[2020-06-02] MEDS ORDERED: LABETALOL HCL 20 MG/4 ML VIAL IV PRN (20:00)
[2020-06-02] MEDS: HYDROcodone/APAP 10 MG/325 MG (LORTAB) TAB PO PRN (20:29)
[2020-06-03] MEDS: fentaNYL INJECTION 100 MCG/2 ML AMP IV PRN (01:42)
[2020-06-03] MEDS: HYDROcodone/APAP 10 MG/325 MG (LORTAB) TAB PO PRN ×2 (01:44→09:14)
[2020-06-03 03:45] LABS: BASOPHILS # (AUTO) 0.1 10^3/uL (0.0-0.1); BASOPHILS % (AUTO) 0 % (0-10); EOSINOPHILS # (AUTO) 0.1 10^3/uL (0.0-0.3); EOSINOPHILS % (AUTO) 1 % (0-10); HEMATOCRIT 37 % (40-54); HEMOGLOBIN 12.1 g/dL (13.3-17.7); LYMPHOCYTES # (AUTO) 1.8 10^3/uL (1.0-4.0); LYMPHOCYTES % (AUTO) 14 % (12-44); MEAN CORPUSCULAR HEMOGLOBIN 31 pg (25-34); MEAN CORPUSCULAR HGB CONC 32 g/dL (32-36); MEAN CORPUSCULAR VOLUME 96 fL (80-99); MEAN PLATELET VOLUME 10.5 fL (9.0-12.2); MONOCYTES % (AUTO) 8 % (0-12); NEUTROPHILS # (AUTO) 9.7 10^3/uL (1.8-7.8); NEUTROPHILS % (AUTO) 77 % (42-75); PLATELET COUNT 296 10^3/uL (130-400); WHITE BLOOD COUNT 12.6 10^3/uL (4.3-11.0)
[2020-06-03 04:04] LABS: CHLORIDE 99 MMOL/L (98-107); SODIUM 138 MMOL/L (135-145)
[2020-06-03 04:05] LABS: CALCIUM 8.3 MG/DL (8.5-10.1)
[2020-06-03 04:06] LABS: GLUCOSE 154 MG/DL (70-105)
[2020-06-03 04:07] LABS: CARBON DIOXIDE 27 MMOL/L (21-32)
[2020-06-03 04:09] LABS: CREATININE SERUM 0.71 MG/DL (0.60-1.30); GFR ESTIMATED > 60; PHOSPHORUS 2.7 MG/DL (2.3-4.7)
[2020-06-03 04:10] LABS: BUN/CREATININE RATIO 14
[2020-06-03 04:11] LABS: MAGNESIUM 1.7 MG/DL (1.6-2.4)
[2020-06-03] MEDS: MAGNESIUM 1 GM/100 ML IVPB 100 ML IV SCH ×2 (05:06→05:23)
[2020-06-03] MEDS: POTASSIUM CL 10MEQ/50ML IVPB 50 ML IV SCH (05:06)
[2020-06-03] MEDS: KCL 20 MEQ TAB (K-DUR) PO SCH (05:07)
[2020-06-03] MEDS: inSUlin ASPART (NovoLOG) 1 UNIT/0.01 ML (CHARGE PER UNIT) SC SCH ×2 (05:07→12:00)
[2020-06-03] MEDS: RT-ALBUTEROL SULF 2.5 MG/3 ML PRE-MIX VIAL INH SCH ×2 (06:48→10:28)
[2020-06-03] MEDS: 1/2 NS IV SOLUTION 1,000 ML IV SCH (07:15)
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
--- NOTE | 2020-06-03 08:45 | Diagnostic Imaging Report ---
INDICATION: Trauma. Rib fracture. COMPARISON: 06/02/2020 FINDINGS: Single frontal radiographic view of the chest was obtained and again demonstrates prominent cardiac silhouette likely secondary to prominent pericardial fat. Pulmonary vasculature is within normal limits. Multiple left-sided rib fractures are identified. There is bibasilar patchy airspace disease, left greater than right. There is no pneumothorax. Overall, aeration is stable. IMPRESSION: 1. Stable exam of the chest showing bibasilar patchy atelectasis, left greater than right. Small left effusion cannot be entirely excluded. Dictated by: Dictated on workstation # [id number]
--- NOTE | 2020-06-03 10:57 | NUR ---
Pt resting and non-responsive. Masseur/Masseuse offered calming prayer at bedside. Masseur/Masseuse will follow up as able.
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
[2020-06-03] MEDS ORDERED: ACHYD1T PO (12:28)
--- NOTE | 2020-06-03 12:29 | Discharge Inst-Surgical ---
Discharge Inst-Surgical Depart Medication/Instructions New, Converted or Re-Newed RX: RX Given to Pt/Family Patient Instructions Follow up Appt: Make appointment for 1 week. [phone] Instructions: No lifting greater than 20 pounds. No strenuous activity. May shower in 24 hours, no tub bath or soaking. Use incentive spirometer at home as directed. No Smoking Skin/Wound Care: May remove bandages in am. You need to leave the Dermabond on incision it will fall off on it's own. Symptoms to Report: Appetite Changes, Extremity Discoloration, Numbness/Tingling, Swelling Increased, Bleeding Excessive, Eyesight Changes, Pain Increased, Urine Color Change, Constipation(Persistent), Fever over 101 degree F, Pain/Pressure in chest, Urinating Difficulty, Cough Up/Vomit Blood, Heart Beat Irreg/Pounding, Pain/Pressure in jaw, Cramps in feet or legs, Lightheadedness, Pain/Pressure in shoulder, Diarrhea(Persistent), Memory Changes Suddenly, Questions/Concerns, Weight gain consecutive days, Dizziness/Fainting, Nausea/Vomiting, Shortness of Breath, Weight gain over 2 pounds If questions or concerns contact your physician Or seek help at emergency department. Activity Activity as Tolerated: Yes Driving Instructions: No Driving/Refer to Dr. Holt Discharge Diet: No Restrictions Diet After 24 Hours: Clear Liquid if Nauseous If Any Problems/Questions/Issu: Contact Your Physician, Go to Emergency Room Skin/Wound Care Infection Signs and Symptoms: Increased Swelling, Temperature Above 101 F Wound Care Comment: Must ambulate and use Incentive Spirometer daily. Bathing Instructions: MARGARITA Massey DO Jun 03, 2020 12:29
--- NOTE | 2020-06-03 13:55 | NUR ---
CM/SS visited with the patient for social service consult. Plan: The patient is discharging today 06/03 to home self care. The patient's son will provide transportation. Home: The patient lives at home alone. The patient is independent. DME: The patient uses [facility] [employer]. He wear's 4L home oxygen at baseline. Support: The patient states his daughter will come to the home tonight and check on him. Home Health: None at this time. No further needs.
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
== END 2020-06-03 14:15 | disposition home or self-care (01) | DRG 964 ==
LOC: EDUNIT# 16:12 → ER 16:13 → ICU 19:00
PROVIDERS: ADMIT Surgery; ATTEND Surgery
DX: S27.2XXA Traumatic hemopneumothorax, initial encounter (principal); S22.42XA Multiple fractures of ribs, left side, initial encounter for closed fracture; S37.012A Minor contusion of left kidney, initial encounter; K43.6 Other and unspecified ventral hernia with obstruction, without gangrene; J98.11 Atelectasis; V19.3XXA Pedal cyclist (driver) (passenger) injured in unspecified nontraffic accident, initial encounter; J44.9 Chronic obstructive pulmonary disease, unspecified; I10 Essential (primary) hypertension; E11.9 Type 2 diabetes mellitus without complications; E87.5 Hyperkalemia
CPT/HCPCS: 36415; 71045; 71260; 74176; 80048; 80053; 80306; 80320; 81000; 82962; 83735; 84100; 84484; 85025; 85610; 85730; 87081; 93005; 93041; 94640; 94664